=== PATIENT | male | born 1980 | race Caucasian/White ===

== ENCOUNTER 2023-05-03 02:15 | Observation (INO) ==
[2023-05-03] MEDS ORDERED: ONDANSETRON INJ 2 MG/ML 2 ML VIAL IV STA (03:56)
[2023-05-03] MEDS ORDERED: HYDROmorphone INJ 0.5 MG/0.5 ML SYR IV STA (03:56)
[2023-05-03 04:13] LABS: Basophils # (auto) 0.03 K/uL (0.00-0.20); Basophils % (auto) 0.4 %; Eosinophils # (auto) 0.02 K/uL (0.00-0.50); Eosinophils % (auto) 0.2 %; Hematocrit (blood only) 46.9 % (42.0-52.0); Hemoglobin 15.1 g/dl (14.0-18.0); Immature Granulocytes # (auto) 0.07 K/uL (0.01-0.20); Immature Granulocytes % (auto) 0.8 %; Lymphocytes # (auto) 0.77 K/uL (1.20-3.40); Lymphocytes % (auto) 9.3 %; Mean Corpuscular Hemoglobin 28.5 pg (25.0-34.0); Mean Corpuscular Hgb Conc 32.2 g/dL (32.0-36.0); Mean Corpuscular Volume 88.7 fL (80.0-100.0); Mean Platelet Volume 9.9 fL (9.4-12.4); Monocytes # (auto) 0.24 K/uL (0.11-0.59); Monocytes % (auto) 2.9 %; Neutrophils # (auto) 7.14 K/uL (1.40-6.50); Neutrophils % (auto) 86.4 %; Platelet Count 273 K/uL (130-400); RDW Coefficient of Variation 13.6 % (11.5-14.5); RDW Standard Deviation 44.2 fL (36.4-46.3); Red Blood Count 5.29 M/uL (4.70-6.10); White Blood Count 8.27 K/ul (4.8-10.8)
[2023-05-03 04:18] LABS: Alanine Aminotransferase 17 U/L (7-52); Albumin Globulin Ratio 1.5 (0.9-2); Albumin Level 4.8 gm/dl (3.4-5.0); Alkaline Phosphatase 81 U/L (34-104); Anion Gap 8 (3-11); Aspartate Aminotransferase 21 U/L (13-39); BUN Creatinine Ratio 20.2 (10-20); Bilirubin,Total 0.6 mg/dl (0.2-1.0); Blood Urea Nitrogen 23 mg/dl (6-23); Calcium 10.2 mg/dl (8.6-10.3); Carbon Dioxide 28 mmol/L (21-32); Chloride 102 mmol/L (98-107); Est GFR (African American) 90.8 ml/min; Est GFR (Non-African American) 78.3 ml/min; Globulin 3.3 gm/dl (2.5-4.0); Glucose 92 mg/dl (70-99(Fasting)); Potassium 3.9 mmol/L (3.5-5.1); Sodium 138 mmol/L (136-145); Total Protein 8.1 gm/dl (6.0-8.3)
--- NOTE | 2023-05-03 04:32 | XRay Report ---
ORBIT RADIOGRAPHS 3 VIEWS HISTORY: pre-MRI screening. COMPARISON: None. FINDINGS: There are no radiopaque foreign bodies identified within the orbits. IMPRESSION: No radiopaque foreign bodies identified within the orbits. ACT 112: Negative or not required by law. Electronically signed by: Renato Alonzo M.D. 05/03/2023 4:29 AM
[2023-05-03] MEDS ORDERED: GADOBUTROL 7.5ML VIAL IV ONE (05:28)
--- NOTE | 2023-05-03 06:06 | Emergency Department Note ---
Impression & Plan Stroke-like symptoms Admit to the [facility] ED Provider Note NAME: WILLIAM LUKE Jr AGE: 42 SEX: Male INFORMANT: Patient ED PROVIDER(S): Mary Sandhu DO CHIEF COMPLAINT: Left-sided weakness and slurred speech PLAN: Disposition: Admit to the [facility] MEDICAL DECISION MAKING: This is a 42-year-old male patient who had sudden onset of headache, left-sided weakness and slurred speech. He was originally seen at [facility] where he underwent a stroke workup and was found to have CT findings in the left side of his brain according to his . They made arrangements for the patient to be transferred to [facility] for MRI of the brain but this could not happen until sometime tomorrow afternoon because of bed availability. The was concerned about the delay and signed the patient out AMA and drove him here for further care. at [facility], the patient's white blood cell count was 11. Here in the emergency department, it had come down to 8. The initially noted that the patient felt hot in be. That was the first sign that there was a problem. The patient has remained afebrile. He has no signs of meningismus. On presentation here, the patient has significant right tongue deviation and slight left mouth droop. He has significant appreciable left lower extremity weakness at the hip, knee and ankle. He went for MRI of the brain which is pending. I have discussed the case with the [facility] and they will admit to the hospital for further neurological evaluation. Care/management discussed with: ED case management and the [facility] Triage Nursing notes: reviewed and agree with them. Vital Signs: reviewed and unremarkable Additional History obtained from: The patient's is at the bedside Prior/ Outside/ External records reviewed: I did review the records the patient brought with him from [facility]-most specifically his CT head without contrast Impression: A slightly irregular hypodense area measuring 19 x 17 mm was seen in the left temporal lobe with a mild mass effect on the ipsilateral temporal horn of the left lateral ventricle. It may be concerning for acute infarctions and or less likely neoplastic lesions. Contrast-enhanced MRI with DWI is advised for further workup. Rest of visualized brain parenchyma is unremarkable. Differential Diagnosis: Intracranial mass, acute stroke, meningitis, conversion disorder, seizure Diagnostics, independently interpreted by me: Cardiac Monitoring: Normal sinus rhythm at 80 Imaging studies: MRI of the brain with and without contrast: Pending HPI: 42 year old Male arrives for evaluation of stroke symptoms. Patient had returned home after some [place] festivities when he got into bed in his usual state of health. His noted that he felt hot to the touch. She went to get him some Tylenol and returned with NyQuil cold tablets. He complained of a headache, chest discomfort and left arm discomfort. She noted that he had slurred speech, left-sided facial droop, left arm weakness and left leg weakness. She took him to [facility] emergency department where they did a complete stroke workup and laboratory testing including 2 negative troponins and EKG which were apparently normal. However according to the , they did have a CT scan of the brain performed which was negative and had some findings in his left temporal lobe. There was a CT scan of the neck which showed no findings in the carotids. She did note that the patient had which she described as expressive aphasia that seem to wax and wane and the findings in his left arm and leg were also waxing and waning. They had made arrangements for the patient to be transferred to [place] for MRI of the brain but this could not happen till tomorrow afternoon because of bed availability. The patient and his were not willing to wait that long and signed out AMA and drove here for further care. Of note, the patient had COVID last week PAST MEDICAL HISTORY: Depression, GERD SOCIAL HISTORY: Lives with his , has 1 son HOME MEDICATIONS: See list ALLERGIES: See list VITALS: See Below PHYSICAL EXAMINATION: HEENT: Head - normocephalic and atraumatic. Pupils are equal, round, and reactive to light. Extraocular eye muscles are intact and sclera are anicteric. Ears - bilaterally patent canals with noninjected tympanic membranes and no evidence of hemotympanum. Nose - moist nasal mucosa without discharge. Mouth - moist buccal mucosa. Oropharynx is nonerythematous and there is no tonsillar exudate or edema noted. Neck: Supple; no JVD, nuchal rigidity, cervical lymphadenopathy, or auscultated bruits. Heart: Regular rate and rhythm. There is a normal S1 and S2 with no murmurs, clicks, or gallops appreciated. Lungs: Clear to auscultation bilaterally with no wheezes, rales, or rhonchi. Abdomen: Soft, completely nontender, nondistended, with good bowel sounds. There are no palpable pulsatile masses or hepatosplenomegaly. There is no guarding, rigidity, or rebound noted. Extremities: No evidence of cyanosis, clubbing, or edema. There are easily palpable peripheral pulses. Neuro:The patient is awake and alert, oriented to day, time, and place. Cranial nerves II through XII are grossly intact except for the patient has obvious tongue deviation to the right and ever so slight droop to the left side of his mouth. Muscle strength is normal in both upper extremities. Patient has significant decrease strength in the left lower leg at the hip, knee and ankle. Muscle strength is 1/5. Emergency department course: The patient was evaluated in room C-5. A complete history and physical was performed. I did review records from [facility]. An IV lock was initiated and labs were drawn as above. The patient went for MRI of the brain. I discussed the case with the [facility] Hospitalist Past Med/Surg History Social History Smoking Status: Never smoker Tobacco Type: Smokeless Tobacco (Dip or Chew) Do You Dip or Chew Tobacco: Yes; Tobacco Cessation Education Requested by Patient: No Hx Alcohol Use: Yes Alcohol type: beer Hx Substance Use: No Preferred Language: Bahraini Communication Ability: Effective Human Services Program Specialist Required: No Beliefs That Will Affect Care: None Current Living Situation: Spouse and Family Current Living Situation Comment: one daughter at times in college Other Information That Helps Us Care for You: No Feels Safe at Home: Yes Safety Concerns: Feels Safe At This Time Assistive Devices: Contacts and Glasses Allergies Allergies Allergy/AdvReac Type Severity Reaction Status Date / Time bacitracin Allergy Intermediate Rash Verified 05/03/23 02:54 [From Neosporin ([id number])] neomycin Allergy Intermediate Rash Verified 05/03/23 02:54 [From Neosporin ([id number])] polymyxin B Allergy Intermediate Rash Verified 05/03/23 02:54 [From Neosporin ([id number])] Home Meds Home Medications Medication Instructions Recorded Confirmed citalopram 20 mg tablet 20 mg PO DAILY 05/03/23 05/03/23 [id number] 6.25 2 cap PO DIRECTED PRN Cold 05/03/23 05/03/23 mg-15 mg-325 mg capsule (Vicks Symptoms NyQuil Cold/Flu Liquicap) pantoprazole 40 mg tablet,delayed 40 mg PO DAILY 05/03/23 05/03/23 release Results & Data (ED) Vital Signs Vital Signs - 24 hr 05/03/23 02:18 05/03/23 03:15 05/03/23 04:17 Temperature 36.6 C Temperature Source Temporal Artery Scan Pulse Rate 74 72 Pulse Rate [Apical] 86 Respiratory Rate 16 24 Blood Pressure 140/87 Blood Pressure [Right Arm] 144/88 H Blood Pressure Mean 104 Blood Pressure Mean [Right Arm] 106 Pulse Oximetry 100 94 Oxygen Delivery Method Room Air Room Air Sepsis Recent Fever Within 48 Hours No Sepsis New/Unexplained Change in Mental Status No Sepsis Action Taken by Nursing No Action Required 05/03/23 05:50 05/03/23 06:00 05/03/23 06:00 Temperature 37.2 C Temperature Source Oral Pulse Rate 80 79 Pulse Rate [Apical] Respiratory Rate 22 25 H Blood Pressure 133/74 121/69 Blood Pressure [Right Arm] Blood Pressure Mean 93 86 Blood Pressure Mean [Right Arm] Pulse Oximetry 96 96 Oxygen Delivery Method Room Air Room Air Sepsis Recent Fever Within 48 Hours Sepsis New/Unexplained Change in Mental Status Sepsis Action Taken by Nursing 05/03/23 06:30 Temperature Temperature Source Pulse Rate 80 Pulse Rate [Apical] Respiratory Rate 26 H Blood Pressure 135/77 Blood Pressure [Right Arm] Blood Pressure Mean 96 Blood Pressure Mean [Right Arm] Pulse Oximetry 95 Oxygen Delivery Method Room Air Sepsis Recent Fever Within 48 Hours Sepsis New/Unexplained Change in Mental Status Sepsis Action Taken by Nursing Laboratory Data 05/03/23 03:10 05/03/23 03:10 Lab Results 05/03/23 Range/Units 03:10 WBC 8.27 (4.8-10.8) K/ul RBC 5.29 (4.70-6.10) M/uL Hgb 15.1 (14.0-18.0) g/dl Hct 46.9 (42.0-52.0) % MCV 88.7 (80.0-100.0) fL MCH 28.5 (25.0-34.0) pg MCHC 32.2 (32.0-36.0) g/dL RDW Std Deviation 44.2 (36.4-46.3) fL RDW Coeff of Natasha 13.6 (11.5-14.5) % Plt Count 273 (130-400) K/uL MPV 9.9 (9.4-12.4) fL Immature Gran % (Auto) 0.8 % Neut % (Auto) 86.4 % Lymph % (Auto) 9.3 % [place] % (Auto) 2.9 % Eos % (Auto) 0.2 % Baso % (Auto) 0.4 % Neut # (Auto) 7.14 H (1.40-6.50) K/uL Lymph # (Auto) 0.77 L (1.20-3.40) K/uL [place] # (Auto) 0.24 (0.11-0.59) K/uL Eos # (Auto) 0.02 (0.00-0.50) K/uL Baso # (Auto) 0.03 (0.00-0.20) K/uL Immature Gran # (Auto) 0.07 (0.01-0.20) K/uL Sodium 138 (136-145) mmol/L Potassium 3.9 (3.5-5.1) mmol/L Chloride 102 (98-107) mmol/L Carbon Dioxide 28 (21-32) mmol/L Anion Gap 8 (3-11) BUN 23 (6-23) mg/dl Creatinine 1.14 (0.6-1.4) mg/dl Est Cr Clr Drug Dosing Not Reportable Est GFR ( Amer) 90.8 ml/min Est GFR (Non-Af Amer) 78.3 ml/min BUN/Creatinine Ratio 20.2 H (10-20) Glucose 92 (70-99(Fasting)) mg/dl Calcium 10.2 (8.6-10.3) mg/dl Total Bilirubin 0.6 (0.2-1.0) mg/dl AST 21 (13-39) U/L ALT 17 (7-52) U/L Alkaline Phosphatase 81 (34-104) U/L Total Protein 8.1 (6.0-8.3) gm/dl Albumin 4.8 (3.4-5.0) gm/dl Globulin 3.3 (2.5-4.0) gm/dl Albumin/Globulin Ratio 1.5 (0.9-2) Administered Medications Hydromorphone HCl (Hydromorphone Inj 0.5 Mg/0.5 Ml Syr) 0.5 mg IV Q3H PRN PRN Reason: Severe Pain (Scale 7, 8, 9,10) Stop: 05/17/23 08:41 Last Admin: 05/03/23 12:34 Dose: 0.5 mg Documented By: KENNETH Sodium Chloride (Nss) 1,000 mls @ 125 mls/hr IV .Q8H GUILLERMO Stop: 05/04/23 01:42 Last Admin: 05/03/23 09:58 Dose: 125 mls/hr Documented By: KENNETH Pantoprazole Sodium (Pantoprazole 40 Mg Tab) 40 mg PO DAILY GUILLERMO Stop: 06/02/23 09:42 Last Admin: 05/03/23 14:15 Dose: 40 mg Documented By: KENNETH Discontinued Medications Gadobutrol (Gadobutrol 7.5ml Vial) 7.4 ml IV ONCE ONE Stop: 05/03/23 05:29 Last Admin: 05/03/23 05:28 Dose: 7.4 ml Documented By: ARUNA Hydromorphone HCl (Hydromorphone Inj 0.5 Mg/0.5 Ml Syr) 0.5 mg IV NOW STA Stop: 05/03/23 03:57 Last Admin: 05/03/23 04:13 Dose: 0.5 mg Documented By: AMITA Ioversol (Optiray 320 125ml) 117 ml IV ONCE ONE Stop: 05/03/23 12:51 Last Admin: 05/03/23 12:50 Dose: 117 ml Documented By: ANASTACIO Ondansetron HCl (Ondansetron Inj 2 Mg/Ml 2 Ml Vial) 4 mg IV NOW STA Stop: 05/03/23 03:57 Last Admin: 05/03/23 04:13 Dose: 4 mg Documented By: AMITA Imaging Data Radiologist's Impression: Brain MRI 05/03/23 03:39 Exam(s): MRI HEAD W/WO Contrast IV Amt: 7.4mL Gadavist given IV EXAM: MR Head Without and With Intravenous Contrast CLINICAL HISTORY: Reason for exam: eval for infarction vs mass. TECHNIQUE: Magnetic resonance images of the head/brain without and with intravenous contrast in multiple planes. CONTRAST: Patient received 7.4mL Gadavist given IV of IV contrast COMPARISON: No relevant prior studies available. FINDINGS: Brain: Minimal nonspecific white matter changes. No mass. No hemorrhage. No acute infarct. The flow voids at the base of the brain are intact. No evidence of abnormal enhancement. The dural venous sinuses are patent. Ventricles: Unremarkable. No ventriculomegaly. Bones/joints: Unremarkable. No acute fracture. Sinuses: Chronic left maxillary and ethmoid sinusitis. No acute sinusitis. Mastoid air cells: Unremarkable as visualized. No mastoid effusion. Orbits: Unremarkable as visualized. IMPRESSION: No evidence of acute intracranial pathology. Electronically signed by: Karo Colindres MD 05/03/23 06:34 AM Orbit X-Ray 05/03/23 03:58 ORBIT RADIOGRAPHS 3 VIEWS HISTORY: pre-MRI screening. COMPARISON: None. FINDINGS: There are no radiopaque foreign bodies identified within the orbits. IMPRESSION: No radiopaque foreign bodies identified within the orbits. ACT 112: Negative or not required by law. Electronically signed by: Renato Alonzo M.D. 05/03/2023 4:29 AM Discharge Plan Visit Data Chief Complaint: Neuro Symptoms/Deficit Stated Complaint: FEVER,CHEST PAIN,WEAKNESS,SPEECH/MOVEMENT ISSUES ED Provider: Mary Sandhu Discharge Problem: Stroke-like symptoms Patient Disposition: Admitted As Inpatient Discharge Instructions Interventions: ED Discharge Assessment Last Done: 05/03/23 09:08
--- NOTE | 2023-05-03 06:35 | Magnetic Resonance Report ---
Exam(s): MRI HEAD W/WO Contrast IV Amt: 7.4mL Gadavist given IV EXAM: MR Head Without and With Intravenous Contrast CLINICAL HISTORY: Reason for exam: eval for infarction vs mass. TECHNIQUE: Magnetic resonance images of the head/brain without and with intravenous contrast in multiple planes. CONTRAST: Patient received 7.4mL Gadavist given IV of IV contrast COMPARISON: No relevant prior studies available. FINDINGS: Brain: Minimal nonspecific white matter changes. No mass. No hemorrhage. No acute infarct. The flow voids at the base of the brain are intact. No evidence of abnormal enhancement. The dural venous sinuses are patent. Ventricles: Unremarkable. No ventriculomegaly. Bones/joints: Unremarkable. No acute fracture. Sinuses: Chronic left maxillary and ethmoid sinusitis. No acute sinusitis. Mastoid air cells: Unremarkable as visualized. No mastoid effusion. Orbits: Unremarkable as visualized. IMPRESSION: No evidence of acute intracranial pathology. Electronically signed by: Karo Colindres MD 05/03/23 06:34 AM
--- NOTE | 2023-05-03 08:42 | History & Physical Report ---
Date of Service May 03, 2023 Assessment & Plan (1) Stroke-like symptoms: Plan: 42-year-old male with past medical history significant for Geovanni's thyroiditis, GERD, panic disorder, anxiety, ADHD, comes with strokelike symptoms. Patient recently seemed to had COVID as per about a week ago and was tested negative on last Wednesday. During COVID he had severe headaches. Yesterday they came home after visiting family. Around 9:30 PM patient went to sleep. When checked on him he was very hot. When she tried to talk to him he was slurring in speech and also had some left-sided facial droop and left- sided weakness. She took the patient to [facility]. CT head scan done in [facility] showed 19mm x 17mm left temporal lobe lesion with mild mass effect on ipsilateral temporal horn of the left temporal ventricle. Acute infarct vs neoplasm.CTA head and neck were ok. [facility] tried to transfer to [place] for MRI but no bed until later today so drove him here.Currently speech is back to normal. Alert and oriented. Tongue is deviated to right side. Probable mild left facial droop. Having Weakness in the left lower extremity currently. Currently denies any headache. No blurred visions. No runny nose or sore throat. No chest pain or shortness of breath. No nausea. No abdominal pain. Hemodynamics are stable. Strokelike symptoms Weakness in the left extremities Transient speech issues Tongue due to right side CT scan at [facility] as mentioned above CTA head and neck at [facility] were okay MRI head done here which came back unremarkable Will follow neurochecks we will follow cardiogram Speech evaluation PT OT evaluation Consult neurology and await input History of depression and anxiety continue citalopram GERD Protonix DVT prophylaxis SCDs for now Disposition Telemetry floor Full code History of Present Illness Chief Complaint: Strokelike symptoms Primary Care Provider: Awais Major MD 42-year-old male with past medical history significant for Geovanni's thyroiditis, GERD, panic disorder, anxiety, ADHD, comes with strokelike symptoms. Patient recently seemed to had COVID as per about a week ago and was tested negative on last Wednesday. During COVID he had severe headaches. Yesterday they came home after visiting family. Around 9:30 PM patient went to sleep. When checked on him he was very hot. When she tried to talk to him he was slurring in speech and also had some left-sided facial droop and left- sided weakness. She took the patient to [facility]. CT head scan done in [facility] showed 19mm x 17mm left temporal lobe lesion with mild mass effect on ipsilateral temporal horn of the left temporal ventricle. Acute infarct vs neoplasm.CTA head and neck were ok. [facility] tried to transfer to [place] for MRI but no bed until later today so drove him here.Currently speech is back to normal. Alert and oriented. Tongue is deviated to right side. Probable mild left facial droop. Having Weakness in t he left lower extremity currently. Currently denies any headache. No blurred visions. No runny nose or sore throat. No chest pain or shortness of breath. No nausea. No abdominal pain. Hemodynamics are stable. Past medical history as mentioned above . Past surgical history. Hypospadias repair Social history. . Chews tobacco. Alcohol yes. no drug use. Family history. No family history on file Allergies Allergy/AdvReac Type Severity Reaction Status Date / Time bacitracin Allergy Intermediate Rash Verified 05/03/23 02:54 [From Neosporin ([id number])] neomycin Allergy Intermediate Rash Verified 05/03/23 02:54 [From Neosporin ([id number])] polymyxin B Allergy Intermediate Rash Verified 05/03/23 02:54 [From Neosporin ([id number])] Home Medications Medication Instructions Recorded Confirmed Type citalopram 20 mg tablet 20 mg PO DAILY 05/03/23 05/03/23 History [id number] 6.25 2 cap PO DIRECTED PRN Cold 05/03/23 05/03/23 History mg-15 mg-325 mg capsule (Vicks Symptoms NyQuil Cold/Flu Liquicap) pantoprazole 40 mg tablet,delayed 40 mg PO DAILY 05/03/23 05/03/23 History release Past Med/Surg History Social History Smoking Status: Never smoker Preferred Language: Bruneian Feels Safe at Home: Yes Review of Systems Review of Systems: All systems reviewed & are unremarkable except as noted in HPI & below Physical Exam Physical Exam: General- Not in acute distress Head- atraumatic Eyes- PERRL, EOMI, anicteric ENT- oropharynx clear Neck- supple, no JVD. Lungs- clear to auscultation no wheezing or crackles. Heart- regular rhythm; no murmur, no gallop. Abdomen- normal bowel sounds, soft, nontender, no distension Extremities- no pretibial edema, no erythema seen. Neuro- alert, oriented x 3; PERRL, EOMI; mild left facial droop,tounge deviated to right side. no dysarthria; power 5/5 bilaterally right extremities. 4/5 left upper extremity, 1/5 left lower extremity ; Co ordination of movements ok. No pronator drift, sensations intact. Skin- warm & dry Results & Data Results & Data Vital Signs (Past 12 Hours) Vital Signs Temp Pulse Pulse Resp BP BP Pulse Ox 05/03/23 08:00 86 21 139/83 97 05/03/23 07:35 88 21 165/89 H 95 05/03/23 07:23 74 05/03/23 07:00 81 24 120/74 96 05/03/23 06:30 80 26 H 135/77 95 05/03/23 06:00 79 25 H 121/69 96 05/03/23 06:00 37.2 C 05/03/23 05:50 80 22 133/74 96 05/03/23 04:17 86 24 144/88 H 94 05/03/23 03:15 72 05/03/23 02:18 36.6 C 74 16 140/87 100 O2 Del Method 05/03/23 08:00 Room Air 05/03/23 07:35 Room Air 05/03/23 07:23 05/03/23 07:00 Room Air 05/03/23 06:30 Room Air 05/03/23 06:00 Room Air 05/03/23 06:00 05/03/23 05:50 Room Air 05/03/23 04:17 Room Air 05/03/23 03:15 05/03/23 02:18 Room Air Diagnostic Findings Laboratory Results WBC 8.27 K/ul (4.8-10.8) 05/03/23 03:10 RBC 5.29 M/uL (4.70-6.10) 05/03/23 03:10 Hgb 15.1 g/dl (14.0-18.0) 05/03/23 03:10 Hct 46.9 % (42.0-52.0) 05/03/23 03:10 MCV 88.7 fL (80.0-100.0) 05/03/23 03:10 MCH 28.5 pg (25.0-34.0) 05/03/23 03:10 MCHC 32.2 g/dL (32.0-36.0) 05/03/23 03:10 RDW Std Deviation 44.2 fL (36.4-46.3) 05/03/23 03:10 RDW Coeff of Natasha 13.6 % (11.5-14.5) 05/03/23 03:10 Plt Count 273 K/uL (130-400) 05/03/23 03:10 MPV 9.9 fL (9.4-12.4) 05/03/23 03:10 Immature Gran % (Auto) 0.8 % 05/03/23 03:10 Neut % (Auto) 86.4 % 05/03/23 03:10 Lymph % (Auto) 9.3 % 05/03/23 03:10 [place] % (Auto) 2.9 % 05/03/23 03:10 Eos % (Auto) 0.2 % 05/03/23 03:10 Baso % (Auto) 0.4 % 05/03/23 03:10 Neut # (Auto) 7.14 K/uL (1.40-6.50) H 05/03/23 03:10 Lymph # (Auto) 0.77 K/uL (1.20-3.40) L 05/03/23 03:10 Delta # (Auto) 0.24 K/uL (0.11-0.59) 05/03/23 03:10 Eos # (Auto) 0.02 K/uL (0.00-0.50) 05/03/23 03:10 Baso # (Auto) 0.03 K/uL (0.00-0.20) 05/03/23 03:10 Immature Gran # (Auto) 0.07 K/uL (0.01-0.20) 05/03/23 03:10 Sodium 138 mmol/L (136-145) 05/03/23 03:10 Potassium 3.9 mmol/L (3.5-5.1) 05/03/23 03:10 Chloride 102 mmol/L (98-107) 05/03/23 03:10 Carbon Dioxide 28 mmol/L (21-32) 05/03/23 03:10 Anion Gap 8 (3-11) 05/03/23 03:10 BUN 23 mg/dl (6-23) 05/03/23 03:10 Creatinine 1.14 mg/dl (0.6-1.4) 05/03/23 03:10 Est Cr Clr Drug Dosing Not Reportable 05/03/23 03:10 Est GFR ( Amer) 90.8 ml/min 05/03/23 03:10 Est GFR (Non-Af Amer) 78.3 ml/min 05/03/23 03:10 BUN/Creatinine Ratio 20.2 (10-20) H 05/03/23 03:10 Glucose 92 mg/dl (70-99(Fasting)) 05/03/23 03:10 Calcium 10.2 mg/dl (8.6-10.3) 05/03/23 03:10 Total Bilirubin 0.6 mg/dl (0.2-1.0) 05/03/23 03:10 AST 21 U/L (13-39) 05/03/23 03:10 ALT 17 U/L (7-52) 05/03/23 03:10 Alkaline Phosphatase 81 U/L (34-104) 05/03/23 03:10 Total Protein 8.1 gm/dl (6.0-8.3) 05/03/23 03:10 Albumin 4.8 gm/dl (3.4-5.0) 05/03/23 03:10 Globulin 3.3 gm/dl (2.5-4.0) 05/03/23 03:10 Albumin/Globulin Ratio 1.5 (0.9-2) 05/03/23 03:10 SARS-CoV-2 (PCR) NEGATIVE (Negative) 05/03/23 07:20 Impressions Brain MRI 05/03/23 03:39 Exam(s): MRI HEAD W/WO Contrast IV Amt: 7.4mL Gadavist given IV EXAM: MR Head Without and With Intravenous Contrast CLINICAL HISTORY: Reason for exam: eval for infarction vs mass. TECHNIQUE: Magnetic resonance images of the head/brain without and with intravenous contrast in multiple planes. CONTRAST: Patient received 7.4mL Gadavist given IV of IV contrast COMPARISON: No relevant prior studies available. FINDINGS: Brain: Minimal nonspecific white matter changes. No mass. No hemorrhage. No acute infarct. The flow voids at the base of the brain are intact. No evidence of abnormal enhancement. The dural venous sinuses are patent. Ventricles: Unremarkable. No ventriculomegaly. Bones/joints: Unremarkable. No acute fracture. Sinuses: Chronic left maxillary and ethmoid sinusitis. No acute sinusitis. Mastoid air cells: Unremarkable as visualized. No mastoid effusion. Orbits: Unremarkable as visualized. IMPRESSION: No evidence of acute intracranial pathology. Electronically signed by: Karo Colindres MD 05/03/23 06:34 AM Orbit X-Ray 05/03/23 03:58 ORBIT RADIOGRAPHS 3 VIEWS HISTORY: pre-MRI screening. COMPARISON: None. FINDINGS: There are no radiopaque foreign bodies identified within the orbits. IMPRESSION: No radiopaque foreign bodies identified within the orbits. ACT 112: Negative or not required by law. Electronically signed by: Renato Alonzo M.D. 05/03/2023 4:29 AM ECG Additional Comments: ECG. Normal sinus rhythm rate of 64. Possible left atrial enlargement. Code Status & VTE Plan VTE Prophylaxis Plan VTE Prophylaxis will be ordered: Yes
[2023-05-03] MEDS ORDERED: PHARMACIST DISCHARGE MED REC CONSULT PRN (09:43)
[2023-05-03] MEDS ORDERED: ACETAMINOPHEN 325 MG TAB PO PRN (09:43)
[2023-05-03] MEDS ORDERED: NITROGLYCERIN SL 0.4 MG/TAB TAB SL PRN (09:43)
[2023-05-03] MEDS ORDERED: ACETAMINOPHEN 1,000 MG/100 ML VIAL IV PRN (09:43)
[2023-05-03] MEDS: SODIUM CHLORIDE 0.9% 1,000 ML IV SCH ×2 (09:58→23:15)
[2023-05-03] MEDS: HYDROmorphone INJ 0.5 MG/0.5 ML SYR IV PRN ×2 (12:34→22:34)
[2023-05-03] MEDS ORDERED: OPTIRAY 320 125ml IV ONE (12:50)
--- NOTE | 2023-05-03 13:04 | Neurology Consultation ---
Date of Consultation May 03, 2023 Assessment & Plan (1) Stroke-like symptoms: Reported stroke like symptoms=left hemiparesis-improving & dysarthria-resolved, tongue deviation appears equivocal No evidence of acute intracranial pathology per MRI review Recommend continue stroke workup including echocardiogram and CTA head & neck Recommend obtain MRI with and without contrast cervical and thoracic spine to address left hemiparesis if symptoms persist MRI lumbar spine without contrast if LLE weakness persists Recommend pursue hypercoagulable workup given patients age and reported acute onset symptoms Continue to monitor neurological assessments Stat CT brain without contrast for any acute neurological decline Continue metabolic workup Monitor renal and hepatic function PT/OT/SLT to evaluate and treat VTE prophylaxis Telehealth Consultation Telehealth Information Telehealth Information: I performed this visit using a real-time telehealth connection between my location and the patients location ([facility]). After connecting through interactive tele-video, patient was identified by name and date of and/or wristband check.Patient (or authorized healthcare wholesale representative) was informed that this was a telemedicine visit and it was being conducted confidentially over secure lines. My office door was closed and no one else was present in the room with me.Patient (or authorized healthcare wholesale representative) provided consent to proceed with the visit, expressed an understanding of privacy and security of the telemedicine visit, and gave permission to have a hospital wholesale representative in the room in order to assist with the visit and to conduct portions of the visit, as needed. I informed the patient (or authorized healthcare wholesale representative) that I reviewed their record and presented the opportunity for them to ask any questions regarding the visit today. The patient agreed to participate. History of Present Illness Reason for Consultation: Concdern for "stroke like symptoms" Reported new onset Left hemiparesis, tongue deviation Requesting Physician: Dr. Rust Attending Physician: Shira Hernadez MD History of Present Illness 42yo male unfortunately was found to be possibly febrile and noted slurring of speech and left facial asymmetry and left sided weakness. He went to [facility] where it is reported he had a CT scan revealing possible left temporal lobe lesion. He was informed he would not undergo MRI immediately so he was reportedly signed out AMA and was driven to [facility] where he is hospitalized now. He has had an MRI brain performed both with and without contrast fortunately unrevealing for evidence of ongoing intracranial pathology per my personal review. I have performed televideo consultation. Speech is without dysarthria or slowed fluency. Able to answer all orientation questions appropriately. Able to name objects and repeat phrases. No evidence of aphasia. Denies vision changes or changes in hearing. No apparent distress or discomfort. at bedside all questions answered. He reports having viral syndrome over last week or so coupled with headaches at times. Currently denies chest pain/palpitations or shortness of breath. When asked to protrude tongue able to appreciate good tone but right sided preference. When performing motor strength and coordination testing notably demonstrates slight LUE drift and very minimal LLE movement against gravity possibly consistent with functional weakness. No evidence of limited cervical spine range of motion or evidence suggestive of nuchal rigidity. I have explained my recommendation for CTA head and neck and echocardiogram as part of complete stroke workup to include hypercoagulation w orkup studies to be addresses as well given patients age and limited stroke risk factors. All questions answered. at bedside and Celena RN present during examination. Discussed examination findings and recommendations directly with primary hospitalist team Dr. Hernadez. Allergies Allergy/AdvReac Type Severity Reaction Status Date / Time bacitracin Allergy Intermediate Rash Verified 05/03/23 02:54 [From Neosporin ([id number])] neomycin Allergy Intermediate Rash Verified 05/03/23 02:54 [From Neosporin ([id number])] polymyxin B Allergy Intermediate Rash Verified 05/03/23 02:54 [From Neosporin ([id number])] Home Medications Medication Instructions Recorded Confirmed Type citalopram 20 mg tablet 20 mg PO DAILY 05/03/23 05/03/23 History [id number]-RP-[id number] 6.25 2 cap PO DIRECTED PRN Cold 05/03/23 05/03/23 History mg-15 mg-325 mg capsule (Vicks Symptoms NyQuil Cold/Flu Liquicap) pantoprazole 40 mg tablet,delayed 40 mg PO DAILY 05/03/23 05/03/23 History release Patient History Social History Smoking Status: Never smoker Tobacco Type: Smokeless Tobacco (Dip or Chew) Do You Dip or Chew Tobacco: Yes; Tobacco Cessation Education Requested by Patient: No Hx Alcohol Use: Yes Alcohol type: beer Hx Substance Use: No Preferred Language: Macanese Communication Ability: Effective 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 Beliefs That Will Affect Care: None Current Living Situation: Spouse and Family Current Living Situation Comment: one daughter at times in college Other Information That Helps Us Care for You: No Feels Safe at Home: Yes Safety Concerns: Feels Safe At This Time Assistive Devices: Contacts and Glasses Review of Systems No reported cephalgia or cervicalgia at this time Denies chest pain/palpitations or shortness of breath No reported changes in vision hearing dizziness syncope seizure like activity or paresthesia Denies recent fevers chills nausea vomiting changes in bowels or bladder Denies recent medication changes, recent illness or sick contacts, no reported recent travel Physical Exam Neurological Examination: Mental Status: Awake and alert. Oriented to person, place, and time. Fluency naming repetition and comprehension appear grossly intact. Affect remains appropriate. CN testing: I: Denies changes in ability to smell II:Reports no changes in visual acuity III/IV/: No evidence of gaze preference, hippus, nystagmus or roving eye movements V: Facial sensation reportedly grossly intact to light touch bilaterally VII: Facial movements appear without evidence of asymmetry Nasolabial folds appear symmetric bilaterally VIII: Hearing appears grossly intact to loud voice bilaterally IX/X: Palate appears to elevate symmetrically XI: Shoulder shrug appears symmetric/ grossly intact bilaterally XII: Tongue is able to cross midline- prefers right side upon protrusion Motor exam: LUE drift after >10 seconds LLE demonstrates possible functional weakness No evidence of positive meningeal signs- negative Kernig/Brudzinski Sensory: Sensation is reportedly grossly intact throughout Coordination: Difficult to reliably assess Reflexes: Deferred Gait: Deferred Results & Data Vital Signs (Past 12 Hours) Vital Signs Temp Pulse Pulse Resp BP BP Pulse Ox 05/03/23 09:37 37.6 C H 76 18 147/85 H 96 05/03/23 09:35 37.6 C H 76 18 147/85 H 96 05/03/23 09:00 75 24 138/79 97 05/03/23 08:30 78 24 138/79 95 05/03/23 08:00 86 21 139/83 97 05/03/23 07:35 88 21 165/89 H 95 05/03/23 07:23 74 05/03/23 07:00 81 24 120/74 96 05/03/23 06:30 80 26 H 135/77 95 05/03/23 06:00 79 25 H 121/69 96 05/03/23 06:00 37.2 C 05/03/23 05:50 80 22 133/74 96 05/03/23 04:17 86 24 144/88 H 94 05/03/23 03:15 72 05/03/23 02:18 36.6 C 74 16 140/87 100 O2 Del Method 05/03/23 09:37 Room Air 05/03/23 09:35 Room Air 05/03/23 09:00 Room Air 05/03/23 08:30 Room Air 05/03/23 08:00 Room Air 05/03/23 07:35 Room Air 05/03/23 07:23 05/03/23 07:00 Room Air 05/03/23 06:30 Room Air 05/03/23 06:00 Room Air 05/03/23 06:00 05/03/23 05:50 Room Air 05/03/23 04:17 Room Air 05/03/23 03:15 05/03/23 02:18 Room Air Laboratory Results Abnormal lab results 05/03/23 Range/Units 03:10 Neut # (Auto) 7.14 H (1.40-6.50) K/uL Lymph # (Auto) 0.77 L (1.20-3.40) K/uL BUN/Creatinine Ratio 20.2 H (10-20) Diagnostic Findings Brain MRI 05/03/23 03:39 Exam(s): MRI HEAD W/WO Contrast IV Amt: 7.4mL Gadavist given IV EXAM: MR Head Without and With Intravenous Contrast CLINICAL HISTORY: Reason for exam: eval for infarction vs mass. TECHNIQUE: Magnetic resonance images of the head/brain without and with intravenous contrast in multiple planes. CONTRAST: Patient received 7.4mL Gadavist given IV of IV contrast COMPARISON: No relevant prior studies available. FINDINGS: Brain: Minimal nonspecific white matter changes. No mass. No hemorrhage. No acute infarct. The flow voids at the base of the brain are intact. No evidence of abnormal enhancement. The dural venous sinuses are patent. Ventricles: Unremarkable. No ventriculomegaly. Bones/joints: Unremarkable. No acute fracture. Sinuses: Chronic left maxillary and ethmoid sinusitis. No acute sinusitis. Mastoid air cells: Unremarkable as visualized. No mastoid effusion. Orbits: Unremarkable as visualized. IMPRESSION: No evidence of acute intracranial pathology. Electronically signed by: Karo Colindres MD 05/03/23 06:34 AM Orbit X-Ray 05/03/23 03:58 ORBIT RADIOGRAPHS 3 VIEWS HISTORY: pre-MRI screening. COMPARISON: None. FINDINGS: There are no radiopaque foreign bodies identified within the orbits. IMPRESSION: No radiopaque foreign bodies identified within the orbits. ACT 112: Negative or not required by law. Electronically signed by: Renato Alonzo M.D. 05/03/2023 4:29 AM Head CTA 05/03/23 11:27 CT angio neck with con, CT angio head wo/w CLINICAL HISTORY: Stroke like symptoms TECHNIQUE: Contiguous axial CT images of the head were acquired from the base of the skull to the vertex without intravenous contrast administration. CT angiography of the head and neck was performed following intravenous administration of iodinated contrast. Coronal and sagittal MIPS were obtained from the axial data set and were submitted for review. Automated dose lowering techniques and/or adjustment according to patient size were utilized for this examination. All measurements were calculated based on NASCET criteria. CT DOSE: 1132.42 mGy.cm Comparison: None available at the time of this dictation. FINDINGS: CT head: There is no acute intracranial hemorrhage or evidence of acute territorial infarction. No shift of the midline structures, mass effect, or extra-axial abnormalities are shown. Given septum pellucidum is incidentally seen. Small thyroid nodules are seen which do not require follow-up by ACR criteria. CTA Neck: A 3 vessel aortic arch is shown. There is no significant atherosclerotic plaque in the aortic arch or the origins of the innominate, left common carotid, and left subclavian arteries. The common carotid, external carotid, cervical segments of the internal carotid arteries, and the cervical segments of the vertebral arteries are patent without hemodynamically significant stenosis. The left vertebral artery is dominant. CTA Head: The anterior and posterior cerebral circulations are patent. No hemodynamically significant stenosis, aneurysm, dissection, or arteriovenous malformation is shown. IMPRESSION: 1. No acute intracranial hemorrhage, evidence of acute territorial infarction, or other acute intracranial disease process. 2. No occlusion, hemodynamically significant stenosis, or dissection in the major cervical arteries. 3. No occlusion, hemodynamically significant stenosis, aneurysm, dissection, or arteriovenous malformation in the major intracranial arteries. Assessment of stenosis of the internal carotid arteries is based on NASCET criteria. ACT 112: Negative or not required by law. Electronically signed by: David Coelho M.D. 05/03/2023 1:18 PM Neck CTA 05/03/23 11:27 CT angio neck with con, CT angio head wo/w CLINICAL HISTORY: Stroke like symptoms TECHNIQUE: Contiguous axial CT images of the head were acquired from the base of the skull to the vertex without intravenous contrast administration. CT angiography of the head and neck was performed following intravenous administration of iodinated contrast. Coronal and sagittal MIPS were obtained from the axial data set and were submitted for review. Automated dose lowering techniques and/or adjustment according to patient size were utilized for this examination. All measurements were calculated based on NASCET criteria. CT DOSE: 1132.42 mGy.cm Comparison: None available at the time of this dictation. FINDINGS: CT head: There is no acute intracranial hemorrhage or evidence of acute territorial infarction. No shift of the midline structures, mass effect, or extra-axial abnormalities are shown. Given septum pellucidum is incidentally seen. Small thyroid nodules are seen which do not require follow-up by ACR criteria. CTA Neck: A 3 vessel aortic arch is shown. There is no significant atherosclerotic plaque in the aortic arch or the origins of the innominate, left common carotid, and left subclavian arteries. The common carotid, external carotid, cervical segments of the internal carotid arteries, and the cervical segments of the vertebral arteries are patent without hemodynamically significant stenosis. The left vertebral artery is dominant. CTA Head: The anterior and posterior cerebral circulations are patent. No hemodynamically significant stenosis, aneurysm, dissection, or arteriovenous malformation is shown. IMPRESSION: 1. No acute intracranial hemorrhage, evidence of acute territorial infarction, or other acute intracranial disease process. 2. No occlusion, hemodynamically significant stenosis, or dissection in the major cervical arteries. 3. No occlusion, hemodynamically significant stenosis, aneurysm, dissection, or arteriovenous malformation in the major intracranial arteries. Assessment of stenosis of the internal carotid arteries is based on NASCET criteria. ACT 112: Negative or not required by law. Electronically signed by: David Coelho M.D. 05/03/2023 1:18 PM Medications Administered Home Medications Medication Instructions Recorded Confirmed Last Taken citalopram 20 mg tablet 20 mg PO DAILY 05/03/23 05/03/23 05/02/23 [id number] 6.25 2 cap PO DIRECTED PRN Cold 05/03/23 05/03/23 05/02/23 21:30 mg-15 mg-325 mg capsule (Vicks Symptoms NyQuil Cold/Flu Liquicap) pantoprazole 40 mg tablet,delayed 40 mg PO DAILY 05/03/23 05/03/23 05/02/23 release Active Medications Generic Name Dose Route Start Last Admin Trade Name Freq PRN Reason Stop Dose Admin Hydromorphone HCl 0.5 mg 05/03/23 08:42 05/03/23 12:34 Hydromorphone Inj 0.5 Mg/0.5 Ml Syr IV 05/17/23 08:41 0.5 mg Q3H PRN Administration Severe Pain (Scale 7, 8, 9,10) Sodium Chloride 1,000 mls @ 125 mls/hr 05/03/23 09:43 05/03/23 09:58 Nss IV 05/04/23 01:42 125 mls/hr .Q8H GUILLERMO Administration
--- NOTE | 2023-05-03 13:19 | CT Scan Report ---
CT angio neck with con, CT angio head wo/w CLINICAL HISTORY: Stroke like symptoms TECHNIQUE: Contiguous axial CT images of the head were acquired from the base of the skull to the mir marisela without intravenous contrast administration. CT angiography of the head and neck was performed f ollowing intravenous administration of iodinated contrast. Coronal and sagittal MIPS were obtained fr om the axial data set and were submitted for review. Automated dose lowering techniques and/or adjus tment according to patient size were utilized for this examination. All measurements were calculated based on NASCET criteria. CT DOSE: 1132.42 mGy.cm Comparison: None available at the time of this dictation. FINDINGS: CT head: There is no acute intracranial hemorrhage or evidence of acute territorial infarction. No sh ift of the midline structures, mass effect, or extra-axial abnormalities are shown. Given septum dionna ucidum is incidentally seen. Small thyroid nodules are seen which do not require follow-up by ACR criteria. CTA Neck: A 3 vessel aortic arch is shown. There is no significant atherosclerotic plaque in the aor tic arch or the origins of the innominate, left common carotid, and left subclavian arteries. The co mmon carotid, external carotid, cervical segments of the internal carotid arteries, and the cervical segments of the vertebral arteries are patent without hemodynamically significant stenosis. The left vertebral artery is dominant. CTA Head: The anterior and posterior cerebral circulations are patent. No hemodynamically significan t stenosis, aneurysm, dissection, or arteriovenous malformation is shown. IMPRESSION: 1. No acute intracranial hemorrhage, evidence of acute territorial infarction, or other acute intrac ranial disease process. 2. No occlusion, hemodynamically significant stenosis, or dissection in the major cervical arteries. 3. No occlusion, hemodynamically significant stenosis, aneurysm, dissection, or arteriovenous malfor mation in the major intracranial arteries. Assessment of stenosis of the internal carotid arteries is based on NASCET criteria. ACT 112: Negative or not required by law. Electronically signed by: David Coelho M.D. 05/03/2023 1:18 PM
[2023-05-03] MEDS: PANTOprazole 40 MG TAB PO SCH (14:15)
--- NOTE | 2023-05-03 15:42 | Communication Note ---
Date of Service: May 03, 2023 Patient seen and examined Exam notable for reduced power 4/5 in LUE/LLE. Patient protrudes tongue to right. PERRLA. No facial palsy/dysarthria. No sensory deficits MRI brain was unremarkable However, family reported CT head at [facility] noted some abnormality. CT report noted slightly irregular hypodense area [id number] in left temporal lobe with mild mass effect on ipsilateral temporal horn of left ventricle Discussed with Neurologist who recommends CTA head and neck w/wo co, MRI cervical/thoracic w/wo co and MRI lumbar. Will continue stroke workup : TTE, Lipid panel, A1c PT/OT/PTA eval Other plans as detailed in H&P this AM
[2023-05-03] MEDS: CITALOPRAM 20 MG TAB PO SCH (15:46)
--- NOTE | 2023-05-03 17:54 | Magnetic Resonance Report ---
MRI OF THE LUMBAR SPINE WITHOUT CONTRAST CLINICAL HISTORY: Left-sided weakness. COMPARISON STUDY: No previous studies for comparison. TECHNIQUE: Utilizing a 1.5 Paz magnet and dedicated coil, multiplanar, multiecho imaging of the [facility] spine was performed without IV contrast. FINDINGS: For purposes of numbering on this exam, the L5-S1 disc space is assigned to axial image 23 of 25. West tebral body heights are maintained. Several Schmorl's nodes are present. No marrow edema or marrow pl acement is present. There is no intracanalicular mass or fluid collection. The conus terminates at th e upper L1 level. Paravertebral soft tissues are unremarkable. Mild multilevel disc space narrowing, osteophytosis and facet arthrosis within the lumbar spine is present. L1-2: There is mild disc space narrowing. The central canal and neural foramen are patent. L2-3: The central canal and neural foramen are patent. L3-4: There is mild disc space narrowing with disc bulge and facet arthrosis with ligamentous hypertr ophy. The central canal is patent. Left neural foramen is patent. There is mild right neural foramina l stenosis. L4-5: There is mild facet arthrosis. There is minimal disc bulge. Central canal is patent. There is m ild bilateral neural foraminal stenosis. L5-S1: There is mild disc space narrowing. There is a central annular tear. Minimal disc bulge. Centr al canal is patent. Neural foramen are patent. IMPRESSION: 1. No acute process within the lumbar spine by MRI. 2. Mild multilevel degenerative disc disease and facet arthrosis, as above. No significant central ca nal stenosis. ACT 112: Negative or not required by law. Electronically signed by: German Patrick M.D. 05/03/2023 5:52 PM
[2023-05-03] MEDS ORDERED: GADOBUTROL 65ML VIAL IV ONE (18:51)
--- NOTE | 2023-05-03 19:24 | Magnetic Resonance Report ---
MRI OF THE CERVICAL SPINE WITH AND WITHOUT CONTRAST CLINICAL HISTORY: Left sided weakness. COMPARISON: CTA of the neck May 03, 2023. TECHNIQUE: Utilizing a 1.5 Paz magnet and dedicated coil, multiplanar, multiecho imaging of the ce rvical spine was performed before and after intravenous administration of 7.4 of Gadavist. FINDINGS: Vertebral body heights are maintained. Slight retrolisthesis of C6 on C7 is chronic. No cervical spin e fracture is present. No intracanalicular mass or fluid collection is present. No abnormal enhanceme nt within the central canal the cervical spine is noted although postcontrast sequences are moderatel y compromised by motion artifact. C2-C3: The central canal and right neural foramen are patent. There is moderate narrowing of the lef t neural foramen due to facet arthrosis and uncovertebral hypertrophy. C3-C4: The central canal and right neural foramen are patent. There is moderate narrowing of the lef t neural foramen due to facet arthrosis and uncovertebral hypertrophy. C4-C5: The central canal is patent. Mild right and mild to moderate left neural foraminal stenosis i s present. C5-C6: The central canal is patent. There is moderate bilateral neural foraminal stenosis due to fac et arthrosis and uncovertebral hypertrophy. C6-C7: Moderate disc space narrowing is noted. The posterior discussed by complex which effaces the ventral thecal sac. There is mild central canal stenosis. Cervical cord signal is normal. There is mo derate to severe bilateral neural foraminal stenosis due to uncovertebral hypertrophy and facet arthr osis. C7-T1: The central canal and neural foramen are patent. IMPRESSION: 1. Exam mildly compromised by motion artifact but no cervical cord signal abnormality identified. 2. Mild central canal stenosis at C6-C7. Multilevel neural foraminal stenosis, as above. This is most pronounced at the C6-C7 level. 3. No cervical spine fractures. ACT 112: Negative or not required by law. Electronically signed by: German Patrick M.D. 05/03/2023 7:22 PM
--- NOTE | 2023-05-03 19:29 | Magnetic Resonance Report ---
MRI OF THE THORACIC SPINE WITH AND WITHOUT CONTRAST CLINICAL HISTORY: Left sided weakness. COMPARISON: None. TECHNIQUE: Utilizing a 1.5 Paz magnet and dedicated coil, multiplanar, multiecho imaging of the th oracic spine was performed before and after the intravenous administration of 7.4 cc. FINDINGS: Alignment of the thoracic spine is anatomic. Vertebral body heights are maintained. No frac ture is present. There is no suspicious marrow replacement. No intracanalicular mass or fluid collect ion is present. The axial sequences are significantly compromised by motion artifact. However, no tho racic cord signal abnormality is identified. Central canal and neural foramen are patent. There are n o disc herniations. No abnormal enhancement within the thoracic canal is noted although postcontrast sequences are also compromised by motion artifact. A 1.1 cm left lobe thyroid nodule is incidentally noted. Bilateral renal lesions are suboptimally assessed due to motion artifact but probably reflect cysts. IMPRESSION: 1. Exam moderately compromised by motion artifact. No significant abnormality within the thoracic spi ne identified. 2. Normal thoracic cord signal and caliber. 3. Patent central canal and neural foramen. No disc herniations. ACT 112: Negative or not required by law. Electronically signed by: German Patrick M.D. 05/03/2023 7:26 PM
[2023-05-04] MEDS: PANTOprazole 40 MG TAB PO SCH (07:39)
[2023-05-04] MEDS: CITALOPRAM 20 MG TAB PO SCH (07:39)
[2023-05-04] MEDS: HYDROmorphone INJ 0.5 MG/0.5 ML SYR IV PRN ×3 (07:42→21:02)
[2023-05-04 08:34] LABS: Basophils # (auto) 0.04 K/uL (0.00-0.20); Basophils % (auto) 0.8 %; Eosinophils # (auto) 0.05 K/uL (0.00-0.50); Eosinophils % (auto) 1.1 %; Hematocrit (blood only) 42.4 % (42.0-52.0); Hemoglobin 13.5 g/dl (14.0-18.0); Immature Granulocytes # (auto) 0.05 K/uL (0.01-0.20); Immature Granulocytes % (auto) 1.1 %; Lymphocytes # (auto) 0.93 K/uL (1.20-3.40); Lymphocytes % (auto) 19.7 %; Mean Corpuscular Hemoglobin 28.2 pg (25.0-34.0); Mean Corpuscular Hgb Conc 31.8 g/dL (32.0-36.0); Mean Corpuscular Volume 88.5 fL (80.0-100.0); Monocytes # (auto) 0.52 K/uL (0.11-0.59); Neutrophils # (auto) 3.14 K/uL (1.40-6.50); Neutrophils % (auto) 66.3 %; Platelet Count 194 K/uL (130-400); RDW Coefficient of Variation 13.6 % (11.5-14.5); RDW Standard Deviation 44.3 fL (36.4-46.3); Red Blood Count 4.79 M/uL (4.70-6.10); White Blood Count 4.73 K/ul (4.8-10.8)
[2023-05-04 08:52] LABS: Estimated Average Glucose 111 mg/dl; Hemoglobin A1C 5.5 % (4.5-5.6)
[2023-05-04 08:56] LABS: Calcium 8.8 mg/dl (8.6-10.3); Chol HDL Ratio 3.6 (0-5); Creatinine Clr Calc Pharmacy 101.4 ml/min; Est GFR (African American) 106.4 ml/min; Est GFR (Non-African American) 91.8 ml/min; Potassium 4.2 mmol/L (3.5-5.1)
--- NOTE | 2023-05-04 10:56 | Hospitalist Progress Note ---
Date of Service May 04, 2023 Assessment & Plan (1) Stroke-like symptoms: Plan: 42-year-old male with past medical history significant for Geovanni's thyroiditis, GERD, panic disorder, anxiety, ADHD, comes with strokelike symptoms. Patient recently seemed to had COVID as per about a week ago and was tested negative on last Wednesday. During COVID he had severe headaches. Around 9:30 PM the night prior to presentation here, patient went to sleep. When checked on him he was very hot. When she tried to talk to him he was slurring in speech and also had some left-sided facial droop and left-sided weakness. She took the patient to [facility]. CT head scan done in [facility] showed 19mm x 17mm left temporal lobe lesion with mild mass effect on ipsilateral temporal horn of the left temporal ventricle. Acute infarct vs neoplasm. CTA head and neck were ok. [facility] tried to transfer to [place] for MRI but no bed until later so drove him here.. Strokelike symptoms Possible TIA MRI head done here was unremarkable Reviewed CTA head/neck here which were unremarkable Cervical spine MRI noted mild central canal stenosis at C6-7 and neural foraminal stenosis most pronounced at C6-7 Thoracic spine MRI unremarkable Lumbar spine MRI noted multilevel DDD, no significant stenosis Findings on MRI spine will not explain patient's symptoms and presentation TTE noted normal EF 60-65%, No significant valvular pathology. No evidence of intracardiac shunt at rest but possible small intracardiac shunt with valsalva. 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 Patient may need AL for better evaluation of possible shunt. Neuro recommends patient to follow up with Neuro outpatient PCP can set up outpatient loop recorder/zio patch testing to rule out Afib PCP can arrange hypercoagulable workup as well History of depression and anxiety Continue citalopram GERD Protonix DVT prophylaxis SCDs for now Disposition Telemetry floor Full code updated about plans I spent a total of 55 minutes coordinating, documenting and providing care for this patient excluding time spent in performance of separately billed services Admission and Anticipated Discharge Date Admission Date: May 03, 2023 Subjective Patient seen and examined Reports improvement in left sided weakness Reports some headache and congestion. Denied any blurry vision, dysphagia, dysarthria, sensory deficits Denied any dizziness Denied any cough, chest pain, SOB, abd pain, nausea, vomiting, diarrhea, constipation, dysuria, freq, urgency, incontinence Physical Exam Constitutional: + well hydrated; no acute distress Eyes: PERRL, conjunctivae normal, anicteric sclerae ENMT: external ear and nose normal, oropharynx normal Respiratory: normal respiratory effort, lungs clear to auscultation Cardiovascular: Rate/Rhythm: regular rate and regular rhythm S1 S2 Gastrointestinal (Abdomen): normal bowel sounds, soft, nontender, no hepatosplenomegaly Musculoskeletal: No pedal edema Neurologic: PERRL, EOMI, accommodation nl, no face palsy, no dysarthria No tongue deviation Power is 5/5 in both UE and RLE, 4/5 in LLE No sensory deficits noted Psychiatric: A+Ox3, euthymic affect Results & Data Results & Data Vital Signs (Past 12 Hours) Vital Signs Temp Pulse Pulse Resp BP Pulse Ox O2 Del Method 05/04/23 07:36 37.0 C 67 18 113/68 97 Room Air 05/04/23 07:15 65 05/04/23 03:41 36.4 C L 61 18 122/62 98 Room Air Laboratory Results Abnormal lab results 05/04/23 Range/Units 08:09 WBC 4.73 L (4.8-10.8) K/ul Hgb 13.5 L (14.0-18.0) g/dl MCHC 31.8 L (32.0-36.0) g/dL Lymph # (Auto) 0.93 L (1.20-3.40) K/uL Chloride 109 H (98-107) mmol/L Triglycerides 160 H (0-150) mg/dl VLDL Cholesterol, Calc 32 H (0-30) mg/dl
--- NOTE | 2023-05-04 11:58 | Electrocardiogram Report ---
Test Reason : Blood Pressure : / mmHG Vent. Rate : 064 BPM Atrial Rate : 064 BPM P-R Int : 176 ms QRS Dur : 078 ms QT Int : 350 ms P-R-T Axes : 064 069 035 degrees QTc Int : 361 ms Normal sinus rhythm Possible Left atrial enlargement Abnormal ECG No previous ECGs available Confirmed by Zay Holt ([id number]) on 05/04/2023 11:58:16 AM Referred By: REFERRED SELF Confirmed By:Abdirashid Holt
--- NOTE | 2023-05-04 12:02 | Electrocardiogram Report ---
Test Reason : Blood Pressure : / mmHG Vent. Rate : 071 BPM Atrial Rate : 071 BPM P-R Int : 166 ms QRS Dur : 084 ms QT Int : 356 ms P-R-T Axes : 057 077 021 degrees QTc Int : 386 ms Normal sinus rhythm Possible Left atrial enlargement Borderline ECG When compared with ECG of 03-MAY-2023 02:46, (unconfirmed) T wave inversion no longer evident in Anterior leads Confirmed by Zay Holt ([id number]) on 05/04/2023 12:02:30 PM Referred By: REFERRED SELF Confirmed By:Abdirashid Holt
[2023-05-04] MEDS ORDERED: LORATADINE 10 MG TAB PO ONE (12:09)
--- NOTE | 2023-05-04 16:18 | Cardiology Consultation ---
Date of Consultation May 04, 2023 Assessment & Plan (1) Stroke-like symptoms: (2) TIA (transient ischemic attack): (3) Abnormal echocardiogram: (4) Smokeless tobacco use: Plan 42-year-old male admitted on May 03, 2023 with strokelike symptoms, transient ischemic attack on May 02, 2023, 1.5 to 2 weeks after having COVID. Cardiology consultation requested due to the TIA, and abnormal resting echocardiography this admission revealing possible small intracardiac shunt with injection of agitated saline contrast and Valsalva. Orders written for the patient to be NPO after midnight in anticipation of possible transesophageal echocardiography (AL) with Dr. Lucas in the morning. Maintain telemetry. If telemetry is benign recommend outpatient 14- day ZIO monitor prior to Electrophysiology referral for loop recorder implantation. Recommend completing a comprehensive evaluation of the patient's symptoms. Blood cultures requested along with TFT's, Lyme screen and tox screens. Recommend hypercoagulable workup. Consider venous duplex and Chest CT to rule out PE. Agree with addition of aspirin, statin, risk factor, and lifestyle modification. Further recommendations to come. Supervising Physician Co-Signing Physician Notes 42-year-old patient admitted with strokelike symptoms, left-sided hemiparesis, word finding issues, and tongue deviation. MRI negative for CVA. Mild left lower extremity weakness noted. Denies chest pain or shortness of breath. No palpitations, lightheadedness, or dizziness. PE: Gen: NAD, AAO x 3. Heart: Regular rhythm, normal S1-S2. No murmur. Lungs: Clear bilateral, no rales, rhonchi, wheeze. Extremities: No edema. Neuro: Mild left lower extremity weakness. A/P: Agree with above AP history, physical exam, assessment and plan. Equivocal graphic findings of a possible PFO noted. Recommend transesophageal echocardiogram for further evaluation. N.p.o. except medications after midnight. Anesthesia consultation placed. Outpatient 14-day ZIO monitor, hypercoagulable workup, Lyme/tox screens, and blood cultures as noted above. History of Present Illness Reason for Consultation: "Neuro request for eval based on TTE, possible TIA" Requesting Physician: Dr. Shira Hernadez Attending Physician: Shira Hernadez MD History of Present Illness Mr. Sb Trinidad Jr. is a very pleasant 42-year-old male who had COVID 1.5 to 2 weeks ago. On the patient was running around visiting family without significant difficulty. He notes early that evening feeling more tired than usual and began to feel unwell. He went to bed early and his significant other noticed that he seemed to be hot. He describes feeling his head pounding, "feeling like it was going to explode." He took 2 NyQuil and got up and got dressed, experiencing chest discomfort as well as left sided weakness. On the way to the [place] ER they called 911. In the ER they recall having an EKG performed as well as laboratory work including troponin x 2 which were both negative. Significant other recalls his blood pressure being 165/90. He recalls receiving 0.5 mg of Ativan and undergoing a chest x-ray as well as a CT scan of the head. Abnormal CT scan of the head led to recommendation for transfer to [facility]. Unfortunately, no beds were available leaving [facility] and presenting to [facility] ER with strokelike symptoms including left hemiparesis, dysarthria, and tongue deviation. Patient went extensive imaging throughout hospitalization including the following: - Brain MRI showed no evidence acute intracranial pathology - Head CTA showed no acute intracranial hemorrhage, evidence of acute territorial infarction, or other acute intracranial disease process. There was no occlusion, hemodynamically significant stenosis, or dissection in the major cervical or intracranial arteries and no aneurysm, dissection, or AV malformation in the major intracranial arteries - Thoracic spine MRI showed normal thoracic cord signal and caliber with no disc herniation Lumbar spine MRI showed no acute process, revealing mild multilevel degenerative disc disease without central canal stenosis - Cervical spine MRI revealed mild central canal stenosis at C6-C7 with multilevel neural foraminal stenosis most pronounced at C6-C7 Cardiac workup thus far included admission EKG revealing normal sinus rhythm with possible left atrial enlargement, QTc 361 ms. A second EKG on May 03, 2023 revealed normal sinus rhythm at 71 bpm with possible left atrial enlargement and a QTc of 386 ms. Continuous phototypesetting equipment monitor has revealed sinus throughout with heart rates predominantly in the 60s and 70s. Resting echocardiography on May 03, 2023 revealed normal LV systolic function, EF 60 to 65%. No significant valve pathology observed. No evidence of intracardiac shunt at rest with injection of agitated saline contrast. Possible small intracardiac shunt (less than 5 bubbles) with injection of agitated saline contrast and Valsalva. Patient describes having a history of thyroid problems in his late 20s, Geovanni's thyroiditis. Additional issues include GERD acceptably controlled on pantoprazole, anxiety and panic disorder, ADHD, and significant allergies. Past Surgical History includes wisdom teeth extraction at the age of 15 and hypospadias repair as a Family history: Mother is alive at 68 without cardiac issues. Father has hypertension. Maternal grandparents had coronary artery disease with paternal grandfather passing with congestive heart failure maternal grandmother passing with CAD. 2 brothers without cardiac issues. Social History: No cigarettes. Chronic smokeless tobacco user. No illegal drug use. Rare/social alcohol. Lives in [place]. Works in the [employer] at [employer]. Allergies Allergy/AdvReac Type Severity Reaction Status Date / Time bacitracin Allergy Intermediate Rash Verified 05/03/23 02:54 [From Neosporin ([id number])] neomycin Allergy Intermediate Rash Verified 05/03/23 02:54 [From Neosporin ([id number])] polymyxin B Allergy Intermediate Rash Verified 05/03/23 02:54 [From Neosporin ([id number])] Home Medications Medication Instructions Recorded Confirmed Type citalopram 20 mg tablet 20 mg PO DAILY 05/03/23 05/03/23 History [id number] 6.25 2 cap PO DIRECTED PRN Cold 05/03/23 05/03/23 History mg-15 mg-325 mg capsule (Vicks Symptoms NyQuil Cold/Flu Liquicap) pantoprazole 40 mg tablet,delayed 40 mg PO DAILY 05/03/23 05/03/23 History release Patient History Social History Smoking Status: Never smoker Tobacco Type: Smokeless Tobacco (Dip or Chew) Do You Dip or Chew Tobacco: Yes; Tobacco Cessation Education Requested by Patient: No Hx Alcohol Use: Yes Alcohol type: beer Hx Substance Use: No Preferred Language: Persian Communication Ability: Effective Scrap Charger Required: No Beliefs That Will Affect Care: None Current Living Situation: Spouse and Family Current Living Situation Comment: one daughter at times in college Other Information That Helps Us Care for You: No Feels Safe at Home: Yes Safety Concerns: Feels Safe At This Time Assistive Devices: Contacts and Glasses Review of Systems Review of Systems: Complete review of systems is otherwise as stated above, negative, or noncontributory Physical Exam Physical Exam: General: A&Ox3. NAD. HENT: Normocephalic. Atraumatic. Eyes: PER. Conjunctiva pink, sclera clear. Neck: No carotid bruits. No JVD. Heart: RRR. No murmur. Lungs: Clear to auscultation. Abdomen: +BS. Soft. Nontender. No masses or organomegaly. Extremities: No evidence of cellulitis. No clubbing, cyanosis, or edema. Skin: Multiple tattoos. Small healing excoriation on the right mid mckeon. Limited neurological examination is without focal deficits. Pulses: Posterior tibial=2/4. Results & Data Vital Signs (Past 12 Hours) Vital Signs Temp Pulse Pulse Resp BP Pulse Ox O2 Del Method 05/04/23 15:35 36.8 C 57 L 18 137/84 98 Room Air 05/04/23 11:02 36.7 C 66 18 131/76 96 Room Air 05/04/23 07:36 37.0 C 67 18 113/68 97 Room Air 05/04/23 07:15 65 Laboratory Results Lipids 05/04/23 Range/Units 08:09 Triglycerides 160 H (0-150) mg/dl Cholesterol 178 (0-200) mg/dl HDL Cholesterol 50 mg/dl Cholesterol/HDL Ratio 3.6 (0-5) CBC 05/04/23 Range/Units 08:09 WBC 4.73 L (4.8-10.8) K/ul RBC 4.79 (4.70-6.10) M/uL Hgb 13.5 L (14.0-18.0) g/dl Hct 42.4 (42.0-52.0) % Plt Count 194 (130-400) K/uL Neut # (Auto) 3.14 (1.40-6.50) K/uL Lymph # (Auto) 0.93 L (1.20-3.40) K/uL Gilmer # (Auto) 0.52 (0.11-0.59) K/uL Eos # (Auto) 0.05 (0.00-0.50) K/uL Baso # (Auto) 0.04 (0.00-0.20) K/uL Comprehensive Metabolic Panel 05/04/23 Range/Units 08:09 Sodium 141 (136-145) mmol/L Potassium 4.2 (3.5-5.1) mmol/L Chloride 109 H (98-107) mmol/L Carbon Dioxide 28 (21-32) mmol/L BUN 17 (6-23) mg/dl Creatinine 1.00 (0.6-1.4) mg/dl Glucose 86 (70-99(Fasting)) mg/dl Calcium 8.8 (8.6-10.3) mg/dl Intake and Output 05/04/23 05/04/23 05/04/23 06:59 14:59 22:59 Intake Total 1740 / 1740 Balance 1740 / 1740 Intake: IV 1000 / 1000 Sodium Chloride 0.9% 1,000 ml @ 1000 / 1000 125 mls/hr IV .Q8H GUILLERMO Rx#: [id number] Oral 740 / 740 Other: # Unmeasured Voids 1 2 Weight 78 kg Weight Measurement Method Built [facility]
[2023-05-04 17:27] LABS: Magnesium 1.8 mg/dl (1.7-2.4)
[2023-05-04] MEDS: ASPIRIN 81 MG ECTAB PO SCH (17:32)
[2023-05-04 17:42] LABS: Thyroid Stimulating Hormone 8.481 uIu/ml (0.300-4.500)
[2023-05-04 17:56] LABS: Lyme Ab IgG w/WB Rflx Negative (Negative)
[2023-05-04 17:58] LABS: Lyme Ab IgM w/WB Rflx Equivocal (Negative)
[2023-05-04 18:17] LABS: T4 Free Thyroxine 0.73 ng/dl (0.61-1.60)
[2023-05-04 18:47] LABS: Amphetamines+Metham, Urine Neg (Neg); Barbiturates, Urine Neg (Neg); Benzodiazepine, Urine Neg (Neg); Cocaine, Urine Neg (Neg); MDMA (Ecstacy), Urine Neg (Neg); Marijuana, Urine Neg (Neg); Methadone, Urine Neg (Neg); Opiate, Urine Neg (Neg); Phencyclidine, Urine Neg (Neg)
[2023-05-04] MEDS ORDERED: LORazepam 0.5 MG TAB PO STA (20:57)
[2023-05-04] MEDS ORDERED: ATORVASTATIN 40 MG TAB PO SCH (21:00)
[2023-05-05] MEDS ORDERED: PROPOFOL IV EMULSION 10 MG/ML 20 ML VIAL IV ONE ×2 (07:08→08:23)
[2023-05-05] MEDS ORDERED: BENZOCAINE/TETRACAIN/BUTAM 50 APPLN/5 GM CAN EXT ONE (07:20)
--- NOTE | 2023-05-05 07:20 | Anesthesiology Consultation ---
Date of Service May 05, 2023 Assessment & Plan Chart Review Chart Review: Acceptable Risk for Surgery and Patient NOT seen in Pre Admission Testing Consults Requested none History Surgery Operation Date: 05/05/23 07:45 Proposed Procedures p Transesophageal Echo w/Anesthesia - Breezy Lucas DO Height/Weight Height: 5 ft 11 in Weight: 78 kg Allergies Allergy/AdvReac Type Severity Reaction Status Date / Time bacitracin Allergy Intermediate Rash Verified 05/03/23 02:54 [From Neosporin ([id number])] neomycin Allergy Intermediate Rash Verified 05/03/23 02:54 [From Neosporin ([id number])] polymyxin B Allergy Intermediate Rash Verified 05/03/23 02:54 [From Neosporin ([id number])] Medications Home Medications Medication Instructions Recorded Confirmed Last Taken citalopram 20 mg tablet 20 mg PO DAILY 05/03/23 05/03/23 05/02/23 [id number]-RG-hnbicenuyaccp 6.25 2 cap PO DIRECTED PRN Cold 05/03/23 05/03/23 05/02/23 21:30 mg-15 mg-325 mg capsule (Vicks Symptoms NyQuil Cold/Flu Liquicap) pantoprazole 40 mg tablet,delayed 40 mg PO DAILY 05/03/23 05/03/23 05/02/23 release Active Medications Generic Name Dose Route Start Last Admin Trade Name Freq PRN Reason Stop Dose Admin Aspirin 81 mg 05/04/23 15:00 05/04/23 17:32 Aspirin 81 Mg Ectab PO 06/03/23 14:59 81 mg QAM GUILLERMO Administration Atorvastatin Calcium 40 mg 05/04/23 21:00 05/04/23 21:01 Atorvastatin 40 Mg Tab PO 06/03/23 20:59 40 mg HS GUILLERMO Administration Citalopram Hydrobromide 20 mg 05/03/23 09:43 05/04/23 07:39 Citalopram 20 Mg Tab PO 06/02/23 09:42 20 mg DAILY GUILLERMO Administration Hydromorphone HCl 0.5 mg 05/03/23 08:42 05/04/23 21:02 Hydromorphone Inj 0.5 Mg/0.5 Ml Syr IV 05/17/23 08:41 0.5 mg Q3H PRN Administration Severe Pain (Scale 7, 8, 9,10) Acetaminophen 1,000 mg in 100 mls @ 400 mls/hr 05/03/23 09:43 05/03/23 20:30 Ofirmev IV 05/06/23 09:42 Infused Q8H PRN Infusion Pain or Fever Pantoprazole Sodium 40 mg 05/03/23 09:43 05/04/23 07:39 Pantoprazole 40 Mg Tab PO 06/02/23 09:42 40 mg DAILY GUILLERMO Administration Social History Smoking Status: Never smoker Do You Dip or Chew Tobacco: Yes Hx Alcohol Use: Yes Alcohol type: beer alcohol intake frequency: holidays/special occasions only Hx Substance Use: No substance use type: does not use Physical Exam Vital Signs Last Vital Signs Temp 36.5 C 05/05/23 04:00 Pulse 78 05/05/23 07:10 Resp 18 05/05/23 04:00 BP 121/77 05/05/23 04:00 Pulse Ox 97 05/05/23 04:00 O2 Del Method Room Air 05/05/23 04:00 Testing Laboratory Results 05/04/23 08:09 05/04/23 08:09 Hemoglobin A1c 5.5 % (4.5-5.6) 05/04/23 08:09
--- NOTE | 2023-05-05 07:45 | History & Physical Bridge Note ---
Date of Service May 05, 2023 History & Physical Bridge Note I have examined the patient, reviewed the History & Physical and in the interval since the performance of the History & Physical I have noted the following changes of clinical significance: no changes noted. Complete cardiology consultation was performed yesterday by Armin Manning PA-C and Dr Prather. The patient's presenting symptoms of left-sided weakness and left facial droop have subsided. He states he still has a residual headache. A transthoracic echocardiogram had been performed during this hospital stay for evaluation of cardiac source of embolism with findings of an interatrial shunt. Transesophageal echocardiogram therefore recommended for further evaluation. Informed consent was obtained. Patient elects to proceed.
--- NOTE | 2023-05-05 07:55 | Pharmacy Report ---
- Date of Service May 05, 2023 - Pharmacy CVA/TIA Medication Review Medications to Prevent Stroke handout has been added to the patients discharge packet. Antiplatelet(s) * Aspirin 81 mg daily Cholesterol * High intensity statin: atorvastatin 40 mg daily DVT Prophylaxis * Pharmacologic and mechanical DVT prophylaxis deferred due to procedure Therapeutic Anticoagulation * No history of Afib/Aflutter noted- patient to have evaluation outpatient Type 2 Diabetes * Patient does not have T2DM
--- NOTE | 2023-05-05 08:12 | Post Operative Brief Note ---
Cardiology Brief Post Op Date of Surgery May 05, 2023 Pre & Post Diagnosis Operation Date: 05/05/23 07:45 Preprocedure diagnosis: TIA, evaluate for cardiac source of cerebral embolism Post procedure diagnosis: No cardiac source of cerebral embolism identified Procedure Transesophageal echocardiogram procedure: After informed consent was obtained and timeout was performed the patient was sedated with the assistance of the anesthesia service receiving a total of 450 mg of IV propofol. There were no significant valvular abnormalities. The interatrial septum was intact without suggestion of interatrial shunt with administration of agitated saline contrast. House Manager Breezy Lucas DO Elevator Operator Service Pina Martinez, ANN Estimated Blood Loss 0 Findings Consistent with Post-Op Diagnosis as noted above Anesthesia Type MAC Complications none
--- NOTE | 2023-05-05 08:49 | Anesthesiology Progress Note ---
Date of Service May 05, 2023 Anesthesia Post Procedure Vital Signs Vital Signs: Temp Pulse Pulse Resp BP Pulse Ox O2 Del Method 05/05/23 08:30 56 L 16 97/56 L 97 Room Air 05/05/23 08:15 56 L 16 91/55 L 98 Oxymask 05/05/23 07:15 59 L 18 119/75 97 Room Air 05/05/23 07:10 78 05/05/23 04:00 36.5 C 61 18 121/77 97 Room Air 05/04/23 23:00 68 05/04/23 22:10 37 C 66 18 125/79 96 Room Air 05/04/23 19:26 37 C 61 18 134/86 98 Room Air 05/04/23 15:35 36.8 C 57 L 18 137/84 98 Room Air 05/04/23 14:02 58 L 05/04/23 11:02 36.7 C 66 18 131/76 96 Room Air O2 Flow Rate 05/05/23 08:30 05/05/23 08:15 10 05/05/23 07:15 05/05/23 07:10 05/05/23 04:00 05/04/23 23:00 05/04/23 22:10 05/04/23 19:26 05/04/23 15:35 05/04/23 14:02 05/04/23 11:02 Pain Intensity Head: Pain Intensity: 5 Transfer of Care Handoff Completed per policy Notes Mental Status: alert / awake / arousable Patient Amnestic to Procedure: Yes Nausea / Vomiting: adequately controlled Pain: adequately controlled Airway Patency, RR, SpO2: stable & adequate BP & HR: stable & adequate Hydration State: stable & adequate Anesthetic Complications: no major complications apparent and Pt Satisfied with anesthetic care
[2023-05-05] MEDS ORDERED: LORATADINE 10 MG TAB PO SCH (09:00)
[2023-05-05] MEDS: ASPIRIN 81 MG ECTAB PO SCH (09:12)
[2023-05-05] MEDS: CITALOPRAM 20 MG TAB PO SCH (09:13)
[2023-05-05] MEDS: PANTOprazole 40 MG TAB PO SCH (09:13)
[2023-05-05 09:48] LABS: Calcium 9.8 mg/dl (8.6-10.3); Creatinine Clr Calc Pharmacy 101.4 ml/min; Est GFR (African American) 106.4 ml/min; Est GFR (Non-African American) 91.8 ml/min; Potassium 4.5 mmol/L (3.5-5.1)
[2023-05-05 09:54] LABS: Basophils # (auto) 0.05 K/uL (0.00-0.20); Basophils % (auto) 1.2 %; Eosinophils # (auto) 0.06 K/uL (0.00-0.50); Eosinophils % (auto) 1.4 %; Hematocrit (blood only) 44.9 % (42.0-52.0); Hemoglobin 14.6 g/dl (14.0-18.0); Immature Granulocytes # (auto) 0.04 K/uL (0.01-0.20); Immature Granulocytes % (auto) 0.9 %; Lymphocytes # (auto) 1.25 K/uL (1.20-3.40); Lymphocytes % (auto) 28.9 %; Mean Corpuscular Hemoglobin 28.6 pg (25.0-34.0); Mean Corpuscular Hgb Conc 32.5 g/dL (32.0-36.0); Mean Platelet Volume 9.9 fL (9.4-12.4); Monocytes # (auto) 0.66 K/uL (0.11-0.59); Monocytes % (auto) 15.2 %; Neutrophils # (auto) 2.27 K/uL (1.40-6.50); Neutrophils % (auto) 52.4 %; Platelet Count 234 K/uL (130-400); RDW Coefficient of Variation 13.4 % (11.5-14.5); RDW Standard Deviation 43.8 fL (36.4-46.3); White Blood Count 4.33 K/ul (4.8-10.8)
--- NOTE | 2023-05-05 10:30 | Cardiology Progress Note ---
Date of Service May 05, 2023 Assessment & Plan (1) TIA (transient ischemic attack): Plan: AL negative for cardiac source of cerebral aneurysm. MRI of brain without abnormality SR on telemetry. No significant vascular risk factors LDL cholesterol 96 mg/dl. Continue aspirin 81 mg daily. Consider 21 day course of clopidogrel. Recommend 2 week ZioPatch monitor which can [facility] at [facility] or [facility]. Admission and Anticipated Discharge Date Admission Date: May 03, 2023 Subjective Patient reassessed post AL. Feeling well. Telemetry reveals SR in the 60-80s. Notes resolution of his presenting symptoms of left sided weakness, slurred speech, and left sided facial droop. Has persistent headache. Physical Exam Constitutional: WD/WN, vitals as above Eyes: PERRL, conjunctivae normal, anicteric sclerae Respiratory: normal respiratory effort, lungs clear to auscultation Cardiovascular: RRR, no murmur, no edema Gastrointestinal (Abdomen): normal bowel sounds, soft, nontender, no hepatosplenomegaly Neurologic: PERRL, EOMI, accommodation nl, no face palsy, no dysarthria Results & Data Vital Signs (Past 12 Hours) Vital Signs Temp Pulse Pulse Pulse Resp BP Pulse Ox 05/05/23 10:08 36.4 C L 69 20 143/78 H 99 05/05/23 09:12 36.7 C 59 L 18 115/79 96 05/05/23 08:42 36.5 C 62 18 111/71 97 05/05/23 08:30 56 L 16 97/56 L 97 05/05/23 08:15 56 L 16 91/55 L 98 05/05/23 08:12 36.5 C 57 L 18 105/61 95 05/05/23 07:15 59 L 18 119/75 97 05/05/23 07:10 78 05/05/23 04:00 36.5 C 61 18 121/77 97 05/04/23 23:00 68 O2 Del Method O2 Flow Rate 05/05/23 10:08 Room Air 05/05/23 09:12 Room Air 05/05/23 08:42 Room Air 05/05/23 08:30 Room Air 05/05/23 08:15 Oxymask 10 05/05/23 08:12 Room Air 05/05/23 07:15 Room Air 05/05/23 07:10 05/05/23 04:00 Room Air 05/04/23 23:00 Laboratory Results CBC 05/05/23 Range/Units 09:18 WBC 4.33 L (4.8-10.8) K/ul RBC 5.10 (4.70-6.10) M/uL Hgb 14.6 (14.0-18.0) g/dl Hct 44.9 (42.0-52.0) % Plt Count 234 (130-400) K/uL Neut # (Auto) 2.27 (1.40-6.50) K/uL Lymph # (Auto) 1.25 (1.20-3.40) K/uL Mchenry # (Auto) 0.66 H (0.11-0.59) K/uL Eos # (Auto) 0.06 (0.00-0.50) K/uL Baso # (Auto) 0.05 (0.00-0.20) K/uL Comprehensive Metabolic Panel 05/05/23 Range/Units 09:18 Sodium 139 (136-145) mmol/L Potassium 4.5 (3.5-5.1) mmol/L Chloride 103 (98-107) mmol/L Carbon Dioxide 30 (21-32) mmol/L BUN 16 (6-23) mg/dl Creatinine 1.00 (0.6-1.4) mg/dl Glucose 89 (70-99(Fasting)) mg/dl Calcium 9.8 (8.6-10.3) mg/dl Intake and Output 05/04/23 05/05/23 05/05/23 22:59 06:59 14:59 Intake Total 350 0 Balance 350 2090 Intake: Oral 350 / 1090 Other: # Unmeasured Voids 1 1 Weight 78 kg 78 kg Weight Measurement Method Built in [facility] Patient Weight 05/06/23 06:59 Weight 78 kg
--- NOTE | 2023-05-05 12:27 | Communication Note ---
Date of Service: May 05, 2023 Discussed directly with primary/hospitalist team Dr. Ramírez Has undergone AL Recommend continue daily ASA & statin Recommend continued follow up with outpatient neurology Recommend hypercoagulable workup given patients age and no significant cerebrovascular/cardiovascular risk factors
--- NOTE | 2023-05-05 12:47 | Discharge Summary ---
Date of Service May 05, 2023 Admission HPI Per Admitting Provider 42-year-old male with past medical history significant for Geovanni's thyroiditis, GERD, panic disorder, anxiety, ADHD, comes with strokelike symptoms. Patient recently seemed to had COVID as per about a week ago and was tested negative on last Wednesday. During COVID he had severe headaches. Yesterday they came home after visiting family. Around 9:30 PM patient went to sleep. When checked on him he was very hot. When she tried to talk to him he was slurring in speech and also had some left-sided facial droop and left- sided weakness. She took the patient to [facility]. CT head scan done in [facility] showed 19mm x 17mm left temporal lobe lesion with mild mass effect on ipsilateral temporal horn of the left temporal ventricle. Acute infarct vs neoplasm.CTA head and neck were ok. [facility] tried to transfer to [place] for MRI but no bed until later today so drove him here.Currently speech is back to normal. Alert and oriented. Tongue is deviated to right side. Probable mild left facial droop. Having Weakness in the left lower extremity currently. Currently denies any headache. No blurred visions. No runny nose or sore throat. No chest pain or shortness of breath. No nausea. No abdominal pain. Hemodynamics are stable. Past medical history as mentioned above . Past surgical history. Hypospadias repair Social history. . Chews tobacco. Alcohol yes. no drug use. Family history. No family history on file Admission Exam Per Admitting Provider General- Not in acute distress Head- atraumatic Eyes- PERRL, EOMI, anicteric ENT- oropharynx clear Neck- supple, no JVD. Lungs- clear to auscultation no wheezing or crackles. Heart- regular rhythm; no murmur, no gallop. Abdomen- normal bowel sounds, soft, nontender, no distension Extremities- no pretibial edema, no erythema seen. Neuro- alert, oriented x 3; PERRL, EOMI; mild left facial droop,tounge deviated to right side. no dysarthria; power 5/5 bilaterally right extremities. 4/5 left upper extremity, 1/5 left lower extremity ; Co ordination of movements ok. No pronator drift, sensations intact. Skin- warm & dry Principal Diagnosis Strokelike symptoms History of depression and anxiety History of GERD Discharge Exam GENERAL: Alert and oriented x3. NAD, on RA. HEENT: No pallor, no icterus. Pupils equal, round and reactive to light. Oral mucosa moist. NECK: No JVD, no neck masses. HEART: S1 and S2 heard. Regular rate and rhythm. No murmur, no gallop. RESPIRATORY SYSTEM: Normal AP diameter. No accessory muscle use. No wheezing, no crackles. ABDOMEN: Soft, bowel sounds present, nontender, no distention. CENTRAL NERVOUS SYSTEM: No facial droop. Speech is clear. Obeys simple commands. Moves extremities. EXTREMITIES: No edema, no erythema seen. Discharge Data Allergies Allergy/AdvReac Type Severity Reaction Status Date / Time bacitracin Allergy Intermediate Rash Verified 05/03/23 02:54 [From Neosporin ([id number])] neomycin Allergy Intermediate Rash Verified 05/03/23 02:54 [From Neosporin ([id number])] polymyxin B Allergy Intermediate Rash Verified 05/03/23 02:54 [From Neosporin ([id number])] Consultations 05/03/23 06:00 ED Decision to Admit Stat 05/03/23 09:43 Consult Neurology Routine 05/04/23 15:01 Consult Cardiology Routine 05/04/23 17:25 Consult Anesthesiology Routine 05/04/23 18:20 Consult Psychiatry Routine Procedures Performed Operation Date: 05/05/23 07:45 Actual Procedures p Echo Transesophageal - DO teresa Tyson Echo Doppler Complete - DO teresa Tyson Echo Color Flow - Breezy Lucas DO Ordered Studies 05/03/23 03:39 MRI Brain [MR brain wo/w con] Stat 05/03/23 11:27 CT angio neck with con Stat CTA head wo/w [CT angio head wo/w] Stat MRI Cervical [MR cervical spine wo/w con] Stat MRI Lumbar Spine [MR lumbar spine wo con] Stat MRI Thoracic [MR thoracic spine wo/w con] Stat Hospital Course (1) Stroke-like symptoms: Per prior attending with addendum: 42-year-old male with past medical history significant for Geovanni's thyroiditis, GERD, panic disorder, anxiety, ADHD, comes with strokelike symptoms. Patient recently seemed to had COVID as per about a week ago and was tested negative on last Wednesday. During COVID he had severe headaches. Around 9:30 PM the night prior to presentation here, patient went to sleep. When checked on him he was very hot. When she tried to talk to him he was slurring in speech and also had some left-sided facial droop and left-sided weakness. She took the patient to [facility]. CT head scan done in [facility] showed 19mm x 17mm left temporal lobe lesion with mild mass effect on ipsilateral temporal horn of the left temporal ventricle. Acute infarct vs neoplasm. CTA head and neck were ok. [facility] tried to transfer to [place] for MRI but no bed until later so drove him here.. Strokelike symptoms Possible TIA MRI head done here was unremarkable Reviewed CTA head/neck here which were unremarkable Cervical spine MRI noted mild central canal stenosis at C6-7 and neural foraminal stenosis most pronounced at C6-7 Thoracic spine MRI unremarkable Lumbar spine MRI noted multilevel DDD, no significant stenosis Findings on MRI spine will not explain patient's symptoms and presentation TTE noted normal EF 60-65%, No significant valvular pathology. No evidence of intracardiac shunt at rest but possible small intracardiac shunt with valsalva. MANAGER SYSTEMS/PT/OT eval noted Reviewed with Neurologist Started on ASA and statin Neurologist recommends getting Carbon Electrodes Supervisor evaluation. Patient may need AL for better evaluation of possible shunt. Neuro recommends patient to follow up with Neuro outpatient PCP can set up outpatient loop recorder/zio patch testing to rule out Afib PCP can arrange hypercoagulable workup as well History of depression and anxiety Continue citalopram GERD Protonix DVT prophylaxis SCDs for now Disposition Telemetry floor Full code updated about plans Addendum: Patient was seen and examined at bedside, patient's at bedside. Patient reports improvement in his strength and reports feeling closer to his baseline. Patient denies any new complaints. Discussed with neurology, plan to continue with his statin and aspirin only for now with close follow-up with neurology as an outpatient. Discussed with psychiatry, patient does not want outpatient psychiatric evaluation, plan to discharge him on a few days worth of Ativan as needed for his anxiety. Patient to follow-up with PCP for ongoing management, highly recommended that he follow-up with outpatient psychiatry. Also noted that patient has declined outpatient physical therapy. But he reports he is back to his baseline strength now and moving around okay. He is being discharged with following instruction at the point of discharge: Follow-up with your primary care physician within a week time and likely you will need labs CBC/CMP/magnesium/phosphorus. For your strokelike symptoms, you underwent several imagings of Head and neck with no acute findings. Neurology evaluated you, recommended aspirin and statin. Follow-up with neurology within 1 to 2 weeks time upon discharge. You will need outpatient Zio patch monitoring, coordinate with your PCP or cardiology office to set up the test. You will need hypercoagulable workup as an outpatient, coordinate with your PCP office to set up the test. For your anxiety and depression, recommend to establish and follow-up with psychiatrist as an outpatient. Coordinated with your PCP office for referral. Take your medications as prescribed. Please make sure that you are able to get your medications today by calling your pharmacy before you leave the hospital so that your treatment continuity is not broken. Home Health Attestation I certify that this patient is under my care and that I, or a physicians personalized living assistant working with me, had a face to-face encounter that meets the home health dyak-kp-aept encounter requirements with this patient. The encounter with the patient was in whole, or in part, for the following medical condition, which is the primary reason for home health care (list medical condition): I certify that, based on my findings, the following services are medically necessary home health services: My clinical findings support the need for the above services because: Further, I certify that my clinical findings support that this patient is homebound (i.e. absences from home require considerable and taxing effort and are for medical reasons or jewish services or infrequently or of short duration when for other reasons) because: Certification for Home Health Services: Based on the above findings, I certify that this patient is confined to the home and needs intermittent longterm care, physical therapy and/or speech therapy or continues to need occupational therapy. The patient is under my care, and I have initiated the establishment of the plan of care. This patient will be followed by a physician who will periodically review the plan of care. Total Time Total Time Spent Total Time Spent (In Minutes): 45 Discharge Plan Discharge Items Patient Disposition: Home - Self-Care Reason For Visit: STROKE LIKE SYMPTOMS Discharge Diagnosis: Strokelike symptoms History of depression and anxiety History of GERD Activity: Resume your previous activity Non-emergency contact: Primary Care Provider Call non-emergency contact if: you have any medication questions, your symptoms worsen and your temperature is above 101 Follow-up/Referrals: Awais Major MD [Primary Care Provider] - (Date & Time 05/12/2023 10:40 AM Provider Sonia Sheikh PA-C Department Family Medicine [facility] ) Diet: Heart Healthy Addtl Attending Provider Instructions: Follow-up with your primary care physician within a week time and likely you will need labs CBC/CMP/magnesium/phosphorus. For your strokelike symptoms, you underwent several imagings of Head and neck with no acute findings. Neurology evaluated you, recommended aspirin and sta tin. Follow-up with neurology within 1 to 2 weeks time upon discharge. You will need outpatient Zio patch monitoring, coordinate with your PCP or cardiology office to set up the test. You will need hypercoagulable workup as an outpatient, coordinate with your PCP office to set up the test. For your anxiety and depression, recommend to establish and follow-up with psychiatrist as an outpatient. Coordinated with your PCP office for referral. Take your medications as prescribed. Please make sure that you are able to get your medications today by calling your pharmacy before you leave the hospital so that your treatment continuity is not broken. Pending Studies at Discharge: Yes Stand-Alone Forms: [facility], Smoking Cessation Medications and DC Order Prescriptions: New loratadine [Wal-itin] 10 mg Tablet 10 mg PO QAM Qty: 7 0RF atorvastatin 40 mg Tablet 40 mg PO HS Qty: 30 0RF aspirin 81 mg Tablet,Delayed Release (Dr/Ec) 81 mg PO QAM Qty: 30 0RF lorazepam 0.5 mg tablet 0.5 mg PO DAILY PRN (Reason: anxiety) Qty: 7 0RF Continued citalopram 20 mg tablet 20 mg PO DAILY pantoprazole 40 mg tablet,delayed release (DR/EC) 40 mg PO DAILY Vicdanilo CastroQuil Cold/Flu Liquicap 6.25-15-325 mg Capsule 2 cap PO DIRECTED PRN (Reason: Cold Symptoms) Admission Data Admit Date/Time: 05/03/23 06:56 Attending Provider: Desiree Middleton Admit Provider: Hank Rust Primary Care Provider: Awais Major Other Providers: Hank Rust; Raquel Dickerson; Sb Paul; Raquel Valdez; Christopher Calle; Colin Dsouza; Crescencio Mcdaniel; Enzo Lynn; Josefa Shea; Jc Thomas; Carter Espinoza; Tana Marcos; Larry Ramires; Chiara Abrams; Anjana De Leon; Enzo Chaudhry; Jasper Prather; Laura Abreu; Celena Berry; Kimberley Payne; Gely Rey; Berlin Urbina; Herminio Rebollar; Alexander Olson; Renato Montiel; Daly Montiel; Chester Powers; Rose Sepulveda; Greg Browne; Anam Saavedra; Lang Schofield; Igor Delarosa; Alla Raines E; Armin Vasques A; Ignacia Vasques; Crescencio Kelley; Christine Read; Pilo Garrett.; Rebecca Bernard; Dayan Rich; Christopher Lewis; Monica Chavez A; Sangeeta Blunt A; Brooke Daugherty; Vicki Mcginnis A; Fabien Mcginnis V; Duncan Brown; Celena Sapp; Hunter Rapp; Allison Morris; Fabien Elaine; Juvenal Raines; David Pritchard; Caitlin Fowler; Shefali He; Fabien Deleon; Arnie Moon; Dedra Loera; Bro Newman; Nidhi Schafer; Karo Phoenix; Breezy Lam; Sb Delarosa; Skylar Hansen; Luis Mills; Jeremiah Salgado; Zay Emery; Berlin Escobar Jr; Giana Preciado; Mariza Oshea; Tanvi Mcginnis; Christopher Newman; Abida Crabtree; Renato Denton; Maurilio Chavez I.; Mabel Smith S.; Mariza Pinedo; Steve [place]; Julian Wise; Miguel Angel Griffith; Isac Epps V.; Matty Wilkes; Sarai Donnelly; Anuradha Antonio; Lesvia Garcia; Barbie Ambrocio; Luly Butler; Elizabet Singh; Kala Marquez; Christopher Valenzuela; Armin Carolina
--- NOTE | 2023-05-05 13:11 | Psychiatric Consultation ---
Date of Consultation May 05, 2023 Impression / Recommendations Impression 42 yo male, reports Celexa helpful for non specific depressive symptoms (subclinical on PHQ-9) but ongoing anxiety, particularly in the setting of recent medical. No hx of substance abuse though does drink ETOH. Reviewed with Dr. Middleton as small supply of prn Ativan 0.5 mg q6 prn may be appropriate on discharge. Patient and counseled that he should not drive, operate machinery, or combine with ETOH and that is a controlled substance/not for daily use. Overall, I spent a total of 58 minutes with this case, including review of chart, direct evaluation of the patient, counseling the patient, communication with family, coordination of care with hospitalist service, and documentation. (1) Anxiety: Plan other than prn Ativan above, reviewed that Celexa dosing is on the lower end and would typically defer titration to outpatient basis given his recent procedures/etc. Recommend titration to 40 mg if willing with repeat EKG for QTc or switch to another SSRI such as Lexapro at discretion of outpatient provider. The patient declined referral for outpatient mental health care but could be referred in future through [employer] system if willing. Psych History Identifying Data 42 yo male from [place]. Admit for stroke like symptoms for cardiac work up. Consult by hospitalist service and case discussed briefly with Dr. Middleton prior to consultation. Chief Complaint impression Celexa not helping anxiety History of Present Illness as per liaison interaction last pm: Met with pt. for initial consult. Alert and oriented x4. Pt sitting in bed. Pleasant and cooperative. States having a hx of depression, anxiety, ADHD. States stressors include current hospitalization due to stroke like symptoms and work. States having anxiety and depression for a long time. Denies specific trigger that started his anxiety/depression. Pt states its mostly general. Denies hx of SI/HI/hallucinations/delusions. PHQ-9 score: 8 with #9=0. Pt states he is currently taking Celexa which helps with his depression but not his anxiety. Rates anxiety 10/10. Pt states he would like a medication adjustment. Pt states he has seen a psychiatrist in the past at [facility] in [place]. Pt states he stopped going to [facility] within the last 3yrs because he was paying out of pocket and could no longer afford to continue. Pt states he doesn't think he had [employer] insurance at the time. Pt states he is prescribed Celexa through his pcp, Dr. Major. Pt states past medication trials included generic lorazepam (which helped), clonazepam, and melatonin (which helped his sleep). Pt states having an adequate appetite. States having issues sleeping, especially trying to fall back asleep. denies hx of inpt psych admissions. Denies access to guns/lethal weapons in his home. Pt states he lives with his and step daughter. States his (Karo) is a good support for him. Denies family psych hx. States he uses alcohol monthly or less with approx. 4 drinks per occasion. Denies other substance use. Denies past trauma hx. ROIs signed for his pcp, Dr. Major and , Karo Trinidad. The patient did receive 1 dose of Ativan 0.5 mg with benefit and confirmed he has taken in the past with good effect. He continues to deny SI and has no hx of such, inpatient care or access to lethal weapons. Past med trials as listed above. at bedside for counseling portion and had no concerns about his return home. He denied a family history of psych issues. Allergies Allergy/AdvReac Type Severity Reaction Status Date / Time bacitracin Allergy Intermediate Rash Verified 05/03/23 02:54 [From Neosporin ([id number])] neomycin Allergy Intermediate Rash Verified 05/03/23 02:54 [From Neosporin ([id number])] polymyxin B Allergy Intermediate Rash Verified 05/03/23 02:54 [From Neosporin ([id number])] Home Medications Medication Instructions Recorded Confirmed Type citalopram 20 mg tablet 20 mg PO DAILY 05/03/23 05/03/23 History [id number] 6.25 2 cap PO DIRECTED PRN Cold 05/03/23 05/03/23 History mg-15 mg-325 mg capsule (Vicks Symptoms NyQuil Cold/Flu Liquicap) pantoprazole 40 mg tablet,delayed 40 mg PO DAILY 05/03/23 05/03/23 History release aspirin 81 mg tablet,delayed 81 mg PO QAM #30 tabs 05/05/23 Rx release atorvastatin 40 mg tablet 40 mg PO HS #30 tabs 05/05/23 Rx loratadine 10 mg tablet (Wal-itin) 10 mg PO QAM #7 tabs 05/05/23 Rx lorazepam 0.5 mg tablet 0.5 mg PO DAILY PRN anxiety #7 tabs 05/05/23 Rx Patient History Social History Smoking Status: Never smoker Tobacco Type: Smokeless Tobacco (Dip or Chew) Do You Dip or Chew Tobacco: Yes; Tobacco Cessation Education Requested by Patient: No Hx Alcohol Use: Yes Alcohol type: beer Hx Substance Use: No Preferred Language: Syriac Communication Ability: Effective Roving Teller Required: No Beliefs That Will Affect Care: None Current Living Situation: Spouse and Family Current Living Situation Comment: one daughter at times in college Other Information That Helps Us Care for You: No Feels Safe at Home: Yes Safety Concerns: Feels Safe At This Time Assistive Devices: Contacts and Glasses Physical Exam Psychiatric: Orientation: alert Apperance: appropriately dressed and appropriately groomed Eye Contact: good eye contact Motor Behavior: no abnormal motor movements Speech: normal rate/rhythm/volume of speech Affect: euthymic affect Mood: + anxious mood Thought Process: goal directed thought process Thought Content: reality based without delusions Suicidal Thoughts: denies suicidal thoughts Homicidal Thoughts: denies homicidal thoughts Hallucinations: no auditory hallucinations and no visual hallucinations Cognition: attention grossly intact and language grossly intact Vital Signs (Past 24 Hours): Last Vital Signs Temp 36.9 C 05/05/23 12:10 Pulse 70 05/05/23 12:10 Resp 20 05/05/23 12:10 BP 138/77 05/05/23 12:10 Pulse Ox 97 05/05/23 12:10 O2 Del Method Room Air 05/05/23 12:10 O2 Flow Rate 10 05/05/23 08:15 Review of Systems All systems reviewed & are unremarkable except as noted in HPI & below Results & Data (PSY) Laboratory Results 05/05/23 05/04/23 05/04/23 Range/Units 09:18 17:28 16:47 WBC 4.33 L (4.8-10.8) K/ul RBC 5.10 (4.70-6.10) M/uL Hgb 14.6 (14.0-18.0) g/dl Hct 44.9 (42.0-52.0) % MCV 88.0 (80.0-100.0) fL MCH 28.6 (25.0-34.0) pg MCHC 32.5 (32.0-36.0) g/dL RDW Std Deviation 43.8 (36.4-46.3) fL RDW Coeff of Natasha 13.4 (11.5-14.5) % Plt Count 234 (130-400) K/uL MPV 9.9 (9.4-12.4) fL Immature Gran % (Auto) 0.9 % Neut % (Auto) 52.4 % Lymph % (Auto) 28.9 % Reynolds % (Auto) 15.2 % Eos % (Auto) 1.4 % Baso % (Auto) 1.2 % Neut # (Auto) 2.27 (1.40-6.50) K/uL Lymph # (Auto) 1.25 (1.20-3.40) K/uL Reynolds # (Auto) 0.66 H (0.11-0.59) K/uL Eos # (Auto) 0.06 (0.00-0.50) K/uL Baso # (Auto) 0.05 (0.00-0.20) K/uL Immature Gran # (Auto) 0.04 (0.01-0.20) K/uL Sodium 139 (136-145) mmol/L Potassium 4.5 (3.5-5.1) mmol/L Chloride 103 (98-107) mmol/L Carbon Dioxide 30 (21-32) mmol/L Anion Gap 6 (3-11) BUN 16 (6-23) mg/dl Creatinine 1.00 (0.6-1.4) mg/dl Est Cr Clr Drug Dosing 101.4 ml/min Est GFR ( Amer) 106.4 ml/min Est GFR (Non-Af Amer) 91.8 ml/min BUN/Creatinine Ratio 16.0 (10-20) Glucose 89 (70-99(Fasting)) mg/dl Calcium 9.8 (8.6-10.3) mg/dl Magnesium 1.8 (1.7-2.4) mg/dl TSH 8.481 H (0.300-4.500) uIu/ml Free T4 0.73 (0.61-1.60) ng/dl Urine Opiates Screen Neg (Neg) Ur Methadone, Qual Neg (Neg) Urine Barbiturates Neg (Neg) Ur Phencyclidine (PCP) Neg (Neg) U Amphetamin/Meth Scrn Neg (Neg) MDMA (Ecstasy) Screen Neg (Neg) U Benzodiazepines Scrn Neg (Neg) Ur Cocaine Metabolite Neg (Neg) U Marijuana (THC) Screen Neg (Neg) Lyme Disease IgG Ab Negative (Negative) Lyme IgG (Western Blot) Pending Lyme IgG 18 kDa Band Pending Lyme IgG 23 kDa Band Pending Lyme IgG 28 kDa Band Pending Lyme IgG 30 kDa Band Pending Lyme IgG 39 kDa Band Pending Lyme IgG 41 kDa Band Pending Lyme IgG 45 kDa Band Pending Lyme IgG 58 kDa Band Pending Lyme IgG 66 kDa Band Pending Lyme IgG 93 kDa Band Pending Lyme IgM Ab (WB) Pending Lyme Disease IgM Ab Equivocal A (Negative) Lyme IgM 23 kDa Band Pending Lyme IgM 39 kDa Band Pending Lyme IgM 41 kDa Band Pending Medications Administered Aspirin (Aspirin 81 Mg Ectab) 81 mg PO [facility] Stop: 06/03/23 14:59 Last Admin: 05/05/23 09:12 Dose: 81 mg Documented By: Admin: 05/04/23 17:32 Dose: 81 mg Documented By: BEV Atorvastatin Calcium (Atorvastatin 40 Mg Tab) 40 mg PO [facility] Stop: 06/03/23 20:59 Last Admin: 05/04/23 21:01 Dose: 40 mg Documented By: MONTSERRAT Citalopram Hydrobromide (Citalopram 20 Mg Tab) 20 mg PO DAILY [facility] Stop: 06/02/23 09:42 Last Admin: 05/05/23 09:13 Dose: 20 mg Documented By: Admin: 05/04/23 07:39 Dose: 20 mg Documented By: Admin: 05/03/23 15:46 Dose: 20 mg Documented By: KENNETH Hydromorphone HCl (Hydromorphone Inj 0.5 Mg/0.5 Ml Syr) 0.5 mg IV Q3H PRN PRN Reason: Severe Pain (Scale 7, 8, 9,10) Stop: 05/17/23 08:41 Last Admin: 05/04/23 21:02 Dose: 0.5 mg Documented By: Admin: 05/04/23 15:13 Dose: 0.5 mg Documented By: Admin: 05/04/23 07:42 Dose: 0.5 mg Documented By: Admin: 05/03/23 22:34 Dose: 0.5 mg Documented By: Admin: 05/03/23 12:34 Dose: 0.5 mg Documented By: KENNETH Acetaminophen (Ofirmev) 1,000 mg in 100 mls @ 400 mls/hr IV Q8H PRN PRN Reason: Pain or Fever Stop: 05/06/23 09:42 Last Infusion: 05/03/23 20:30 Dose: Infused Documented By: Admin: 05/03/23 20:15 Dose: 400 mls/hr Documented By: MACHO Loratadine (Loratadine 10 Mg Tab) 10 mg PO QAM [facility] Stop: 06/04/23 08:59 Last Admin: 05/05/23 09:12 Dose: 10 mg Documented By: BEV Pantoprazole Sodium (Pantoprazole 40 Mg Tab) 40 mg PO DAILY [facility] Stop: 06/02/23 09:42 Last Admin: 05/05/23 09:13 Dose: 40 mg Documented By: Admin: 05/04/23 07:39 Dose: 40 mg Documented By: Admin: 05/03/23 14:15 Dose: 40 mg Documented By: KENNETH Coding Level of Care Code 15108 [facility] Intl Hosp Care Lvl 2 Diagnoses Anxiety F41.9
[2023-05-05] MEDS ORDERED: STROKE PATIENT DISCHARGE STA (16:01)
[2023-05-05] MEDS: HYDROmorphone INJ 0.5 MG/0.5 ML SYR IV PRN (16:06)
[2023-05-07 21:58] LABS: 18KDIGG Band NON-REACTIVE; 23KDIGG Band NON-REACTIVE; 23KDIGM Band NON-REACTIVE; 28KDIGG Band NON-REACTIVE; 30KDIGG Band NON-REACTIVE; 39KDIGG Band NON-REACTIVE; 39KDIGM Band NON-REACTIVE; 41KDIGG Band REACTIVE; 41KDIGM Band NON-REACTIVE; 45KDIGG Band NON-REACTIVE; 58KDIGG Band REACTIVE; 66KDIGG Band NON-REACTIVE; 93KDIGG Band REACTIVE; Lyme Antibodies, WB IgG NEGATIVE (NEGATIVE); Lyme Antibodies, WB IgM NEGATIVE (NEGATIVE)
== END 2023-05-05 17:19 | disposition home or self-care (01) | DRG 57 ==
LOC: ED 02:15 → SUATTDRO 06:56 → 2S 06:56 → INTOOBSV 06:56 → 2S 09:08

== ENCOUNTER 2023-11-22 13:54 | Inpatient (IN) ==
[2023-11-22] MEDS: OPTIRAY 320 125ml IV ONE (14:02)
[2023-11-22] MEDS ORDERED: No Aspirin within 24hrs of THROMBOLYTIC-Stroke PO SCH (14:15)
--- NOTE | 2023-11-22 14:15 | CT Scan Report ---
CT ANGIOGRAM OF THE NECK CLINICAL HISTORY: Neurological deficit. Stroke like symptoms. COMPARISON STUDY: CT angiogram of the neck dated 05/03/2023. TECHNIQUE: Following the IV administration of 119 of Optiray 320, CT angiogram of the neck was perfor med from the aortic arch to the skull base. Images are reviewed in the axial, sagittal, and coronal p lanes. 3-D MIPS images are created and assessed. IV contrast was administered without complication. A ll measurements were calculated based on NASCET criteria. A dose lowering technique was utilized adh ering to the principles of ALARA. CT DOSE: 1368.74 mGy.cm FINDINGS: Thoracic aorta: Visualized portions of the thoracic aorta are normal in caliber. The aortic arch demo nstrates standard 3-vessel anatomy. Right carotid arterial system: The right common carotid artery is widely patent, as are the right int ernal and external carotid arteries. Left carotid arterial system: The left common carotid artery is widely patent, as are the left internet database specialist al and external carotid arteries. Vertebral arteries: The vertebral arteries are widely patent bilaterally and codominant. Subclavian arteries: Widely patent bilaterally. Jugular veins: Patent bilaterally. Brain parenchyma: The visualized brain parenchyma the skull base is within normal limits. Lung apices: Partially visualized upper lobe lung parenchyma appears clear. Soft tissues: The visualized pharyngeal soft tissues are normal in appearance noting angiographic pha se technique. The oropharyngeal airway appears widely patent. The salivary and thyroid glands are nor mal in appearance. No cervical lymphadenopathy is seen. Skeletal structures: The visualized calvarium at the skull base appears intact. The imaged cervical s pine is maintained noting mild spondylosis. Sinuses and mastoids: There is mild mucosal thickening with an air-fluid level seen in the right maxi llary antrum. Mild mucosal thickening is also noted in the left maxillary sinus. The mastoid air cell s are well pneumatized. IMPRESSION: Unremarkable CT angiogram of the neck. ACT 112: Negative or not required by law. Electronically signed by: Bro Chance M.D. 11/22/2023 2:13 PM
[2023-11-22 14:16] LABS: Basophils # (auto) 0.05 K/uL (0.00-0.20); Eosinophils # (auto) 0.07 K/uL (0.00-0.50); Eosinophils % (auto) 1.3 %; Hematocrit (blood only) 44.5 % (42.0-52.0); Hemoglobin 14.5 g/dl (14.0-18.0); Immature Granulocytes # (auto) 0.02 K/uL (0.01-0.20); Immature Granulocytes % (auto) 0.4 %; Lymphocytes # (auto) 1.46 K/uL (1.20-3.40); Lymphocytes % (auto) 27.8 %; Mean Corpuscular Hemoglobin 28.2 pg (25.0-34.0); Mean Corpuscular Hgb Conc 32.6 g/dL (32.0-36.0); Mean Corpuscular Volume 86.4 fL (80.0-100.0); Mean Platelet Volume 9.9 fL (9.4-12.4); Monocytes # (auto) 0.71 K/uL (0.11-0.59); Monocytes % (auto) 13.5 %; Neutrophils # (auto) 2.95 K/uL (1.40-6.50); Platelet Count 297 K/uL (130-400); RDW Coefficient of Variation 13.6 % (11.5-14.5); RDW Standard Deviation 43.2 fL (36.4-46.3); Red Blood Count 5.15 M/uL (4.70-6.10); White Blood Count 5.26 K/ul (4.8-10.8)
--- NOTE | 2023-11-22 14:17 | CT Scan Report ---
CT angio head w con, CT head/brain wo con CLINICAL HISTORY: neuro deficit, acute stroke suspected TECHNIQUE: Contiguous axial CT images of the head were acquired from the base of the skull to the mir marisela without intravenous contrast administration. CT angiography of the head was performed following intravenous administration of iodinated contrast. Coronal and sagittal MIPS were obtained from the ax ial data set and were submitted for review. Automated dose lowering techniques and/or adjustment acc ording to patient size were utilized for this examination. All measurements were calculated based on NASCET criteria. Comparison: None available at the time of this dictation. FINDINGS: CT head: There is no acute intracranial hemorrhage or evidence of acute territorial infarction. No sh ift of the midline structures, mass effect, or extra-axial abnormalities are shown. CTA Head: The anterior and posterior cerebral circulations are patent. No hemodynamically significan t stenosis, aneurysm, dissection, or arteriovenous malformation is shown. IMPRESSION: 1. No acute intracranial hemorrhage, evidence of acute territorial infarction, or other acute intrac ranial disease process. 2. No occlusion, hemodynamically significant stenosis, aneurysm, dissection, or arteriovenous malfor mation in the major intracranial arteries. Assessment of stenosis of the internal carotid arteries is based on NASCET criteria. ACT 112: Negative or not required by law. Electronically signed by: David Coelho M.D. 11/22/2023 2:16 PM
[2023-11-22 14:28] LABS: INR 0.9 (0.9-1.1); Partial Thromboplastin Time 27 Seconds (21-31)
[2023-11-22] MEDS: LORazepam 1 MG/1 ML SYR ED Inj Use IV STA (14:43)
[2023-11-22 14:44] LABS: Albumin Globulin Ratio 1.4 (0.9-2); Albumin Level 4.6 gm/dl (3.4-5.0); BUN Creatinine Ratio 16.4 (10-20); Bilirubin,Total 0.6 mg/dl (0.2-1.0); Calcium 10.1 mg/dl (8.6-10.3); Creatinine Clr Calc Pharmacy 93.9 ml/min; Est GFR (African American) 94.1 ml/min; Est GFR (Non-African American) 81.2 ml/min; Globulin 3.3 gm/dl (2.5-4.0); Total Protein 7.9 gm/dl (6.0-8.3)
[2023-11-22 14:46] LABS: Troponin I High Sensitivity 3.5 pg/ml (0-20)
--- NOTE | 2023-11-22 14:46 | Emergency Department Note ---
Impression & Plan Stroke-like symptoms ED Provider Note NAME: WILLIAM LUKE Jr AGE: 43 SEX: M : 1980 ARRIVES VIA: Ambulance INFORMANT: Patient, EMS, the patient's significant other ED PROVIDER(S): Fish Paige DO CHIEF COMPLAINT: strokelike symptoms HPI: The patient is a 43-year-old male who presented to the emergency department by ambulance for strokelike symptoms. The patient was made a stroke alert prior to arrival. According to the patient as well as prehospital the patient started having a right-sided headache at approximately 130. He started having left upper extremity weakness. He has a history of a stroke in the past with similar symptoms so he called 911. According to the prehospital personnel the patient walked out to the ambulance but then prior to arrival started having acute left leg weakness as well. The patient also complained of headache. He continues to complain of a right-sided headache. There is no reported nausea or vomiting. The patient was unable to speak when he arrived at the emergency department. Additional history was obtained from the patient's significant other. He had a similar episode in April of last year. ROS: See above HPI for pertinent positives & negatives. A total of 10 systems reviewed and were otherwise negative. PAST MEDICAL HISTORY: See Below PAST SURGICAL HISTORY: See Below FAMILY HISTORY: See Below SOCIAL HISTORY: See Below HOME MEDICATIONS: See Below ALLERGIES: See Below VITALS: See Below PHYSICAL EXAMINATION: GENERAL: The patient is awake to verbal commands. Not answer questions appears aphasic at this time. EYES: The conjunctivae are clear. The pupils are round and reactive. EARS, NOSE, MOUTH AND THROAT: The nose is without any evidence of any deformity. NECK: The neck is nontender and supple. RESPIRATORY: Normal respiratory effort is noted there is no evidence of wheezing rhonchi or rales CARDIOVASCULAR: Regular rate and rhythm noted there no murmurs rubs or gallops normal S1 normal S2. GASTROINTESTINAL: The abdomen is soft. Abdomen is nontender. MUSCULOSKELETAL/EXTREMITIES: There is no evidence of gross deformity full range of motion is noted in the hips and shoulders. SKIN: There is no obvious evidence of any rash. There are no petechiae, pallor or cyanosis noted. NEUROLOGIC: The patient is awake and alert. He is able to look around the room. There is left upper and left lower extremity weakness. The patient is unable to look to the left and will not speak at this time MEDICAL DECISION MAKING: The patient is a 43-year-old male who presented to the emergency department with acute strokelike symptoms. The patient was made a stroke alert prior to arrival. He did have very significant symptoms. Initial CAT scan showed no acute abnormality so the patient was considered a TNK candidate. I discussed the patient's condition with the telestroke neurologist. The patient was evaluated by the telestroke neurologist. The patient started having some intermittent symptoms that could be consistent with another cause other than an ischemic stroke such as conversion reaction or possibly seizure. The patient was treated with Ativan and then Depakote. The patient was reevaluated multiple times. Ultimately the patient was found to have an NIH score of 0. TNK was not given because of the confusing presentation. The patient's significant other did give part of the history as well. Given the patient's initial presentation I did discuss patient's case with the on-call [facility] hospitalist. They have agreed to evaluate the patient in the emergency department for further management and disposition. Triage Nursing notes reviewed. Prior medical records reviewed Vital Signs: reviewed and remarkable for hypertension. Differential diagnosis: Infection, dehydration, metabolic abnormality, hypo/hyperglycemia, electrolyte disturbance, anemia, hypoxia, cardiac sources, intracerebral event, toxicologic, neurologic, as well as other pathologies. ER treatment provided: See below Diagnostics interpreted by me: ECG: EKG was obtained in the emergency department. My interpretation is normal sinus rhythm at [address] segment abnormalities are noted with T wave versions in the inferior leads. This was compared to a tracing from May 03, 2023. No changes were noted. Cardiac Monitoring: An order was placed for continuous cardiac monitoring. The monitor shows a rate of 89 bpm with sinus rhythm. Laboratory studies: As stated above and show below. Imaging studies: See below. Radiographic imaging was reviewed by myself Consultation(s): I discussed this case with Dr. Harden Who is on for the telestroke service with [facility]. They recommended that we use maintenance Depakote every 8 hours and obtain a stat EEG in the a.m. They also recommended further neuroimaging such as MRI. They also recommended an evaluation by psychiatry and neurology if possible. I discussed this case with the [facility] hospitalist. They have agreed to evaluate the patient in the emergency department for further management and disposition. ED COURSE: Procedures: none Critical Care: I have personally spent greater than 45 minutes of critical care time in the direct management of this patient. This includes bedside care, interpretation of diagnostic studies, and testing, discussion with consultants, patient, and family members, and other required patient management activities. This 45 minutes is in excess of all separately billable procedures. 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 Beliefs That Will Affect Care: None Current Living Situation: Spouse and Family Current Living Situation Comment: one daughter at times in college Feels Safe at Home: Yes Assistive Devices: Contacts and Glasses Allergies Allergies Allergy/AdvReac Type Severity Reaction Status Date / Time bacitracin Allergy Intermediate Rash Verified 11/22/23 15:34 [From Neosporin ([id number])] neomycin Allergy Intermediate Rash Verified 11/22/23 15:34 [From Neosporin ([id number])] polymyxin B Allergy Intermediate Rash Verified 11/22/23 15:34 [From Neosporin ([id number])] Home Meds Home Medications Medication Instructions Recorded Confirmed pantoprazole 40 mg tablet,delayed 40 mg PO DAILY 05/03/23 11/22/23 release acetaminophen 500 mg tablet 500 mg PO Q6H PRN Pain/Fever 11/22/23 11/22/23 trazodone 50 mg tablet 50 mg PO HS PRN Sleep 11/22/23 11/22/23 Previous Rx's Medication Instructions Recorded aspirin 81 mg tablet,delayed 81 mg PO QAM #30 tabs 05/05/23 release loratadine 10 mg tablet (Wal-itin) 10 mg PO QAM #7 tabs 05/05/23 Results & Data (ED) Vital Signs Vital Signs - 24 hr 11/22/23 14:05 Pulse Rate 89 Pulse Rhythm Regular Pulse Strength Normal Respiratory Rate 24 Respiratory Effort / Characteristics Non-Labored Respiratory Depth Normal Respiratory Pattern Regular Blood Pressure 156/98 H Blood Pressure Mean 117 Blood Pressure Position Sitting Pulse Oximetry 99 Oxygen Delivery Method Nasal Cannula Oxygen Flow Rate 2 Sepsis Recent Fever Within 48 Hours No Sepsis New/Unexplained Change in Mental Status N/A Sepsis Action Taken by Nursing No Action Required Home Medications Current Medication List: was personally reviewed by me Laboratory Data Attestation: I reviewed the patient's lab results. 11/22/23 14:04 11/22/23 14:04 Lab Results 11/22/23 11/22/23 11/22/23 Range/Units 14:04 14:12 14:18 WBC 5.26 (4.8-10.8) K/ul RBC 5.15 (4.70-6.10) M/uL Hgb 14.5 (14.0-18.0) g/dl Hct 44.5 (42.0-52.0) % MCV 86.4 (80.0-100.0) fL MCH 28.2 (25.0-34.0) pg MCHC 32.6 (32.0-36.0) g/dL RDW Std Deviation 43.2 (36.4-46.3) fL RDW Coeff of Natasha 13.6 (11.5-14.5) % Plt Count 297 (130-400) K/uL MPV 9.9 (9.4-12.4) fL Immature Gran % (Auto) 0.4 % Neut % (Auto) 56.0 % Lymph % (Auto) 27.8 % [place] % (Auto) 13.5 % Eos % (Auto) 1.3 % Baso % (Auto) 1.0 % Neut # (Auto) 2.95 (1.40-6.50) K/uL Lymph # (Auto) 1.46 (1.20-3.40) K/uL [place] # (Auto) 0.71 H (0.11-0.59) K/uL Eos # (Auto) 0.07 (0.00-0.50) K/uL Baso # (Auto) 0.05 (0.00-0.20) K/uL Immature Gran # (Auto) 0.02 (0.01-0.20) K/uL PT 10.0 (9.0-12.0) Seconds INR 0.9 (0.9-1.1) APTT 27 (21-31) Seconds PTT Ratio 1.0 Sodium 139 (136-145) mmol/L Potassium 4.0 (3.5-5.1) mmol/L Chloride 102 (98-107) mmol/L Carbon Dioxide 29 (21-32) mmol/L Anion Gap 8 (3-11) BUN 18 (6-23) mg/dl Creatinine 1.10 (0.6-1.4) mg/dl Est Cr Clr Drug Dosing 93.9 ml/min Est GFR ( Amer) 94.1 ml/min Est GFR (Non-Af Amer) 81.2 ml/min BUN/Creatinine Ratio 16.4 (10-20) Glucose 122 H (70-99(Fasting)) mg/dl POC Glucose 93 (70-99) mg/dl Calcium 10.1 (8.6-10.3) mg/dl Magnesium 2.0 (1.7-2.4) mg/dl Total Bilirubin 0.6 (0.2-1.0) mg/dl AST 25 (13-39) U/L ALT 19 (7-52) U/L Alkaline Phosphatase 80 (34-104) U/L Troponin I High Sens 3.5 (0-20) pg/ml Total Protein 7.9 (6.0-8.3) gm/dl Albumin 4.6 (3.4-5.0) gm/dl Globulin 3.3 (2.5-4.0) gm/dl Albumin/Globulin Ratio 1.4 (0.9-2) Ethyl Alcohol mg/dL < 10.0 (<10.0) mg/dl Administered Medications Valproic Acid 500 mg/ Dextrose 55 mls @ 55 mls/hr IV ONE STA Stop: 11/22/23 16:14 Last Admin: 11/22/23 15:37 Dose: 55 mls/hr Documented By: MARIA ISABEL Discontinued Medications Ioversol (Optiray 320 125ml) 119 ml IV ONCE ONE Stop: 11/22/23 14:03 Last Admin: 11/22/23 14:02 Dose: 119 ml Documented By: ALEXIA Lorazepam (Lorazepam 1 Mg/1 Ml Syr Ed Inj Use) 2 mg IV ONE STA Stop: 11/22/23 14:32 Last Admin: 11/22/23 14:43 Dose: 2 mg Documented By: JOE Imaging Data Attestation: I personally reviewed and interpreted this imaging study as follows: My Impression: 1 view chest x-ray was obtained in the emergency department. My interpretation is no free air or definite infiltrate, final report below. CT of the brain was obtained in the emergency department. My interpretation is no intracranial hemorrhage or mass effect, final report below. Radiologist's Impression: Chest X-Ray 11/22/23 13:47 XR chest 1V portable CLINICAL HISTORY: neuro deficit, acute stroke suspected TECHNIQUE: Single frontal radiograph of the chest was obtained. Comparison: None available at the time of this dictation. FINDINGS: No lines and tubes are seen. The cardiomediastinal silhouette is normal. The lungs are clear. No evidence of pleural effusion or pneumothorax. IMPRESSION: No acute chest disease. ACT 112: Negative or not required by law. Electronically signed by: David Coelho M.D. 11/22/2023 3:[address] 11/22/23 13:47 CT angio head w con, CT head/brain wo con CLINICAL HISTORY: neuro deficit, acute stroke suspected TECHNIQUE: Contiguous axial CT images of the head were acquired from the base of the skull to the vertex without intravenous contrast administration. CT angiography of the head was performed following intravenous administration of iodinated contrast. Coronal and sagittal MIPS were obtained from the axial data set and were submitted for review. Automated dose lowering techniques and/or adjustment according to patient size were utilized for this examination. All measurements were calculated based on NASCET criteria. Comparison: None available at the time of this dictation. FINDINGS: CT head: There is no acute intracranial hemorrhage or evidence of acute territorial infarction. No shift of the midline structures, mass effect, or extra-axial abnormalities are shown. CTA Head: The anterior and posterior cerebral circulations are patent. No hemodynamically significant stenosis, aneurysm, dissection, or arteriovenous malformation is shown. IMPRESSION: 1. No acute intracranial hemorrhage, evidence of acute territorial infarction, or other acute intracranial disease process. 2. No occlusion, hemodynamically significant stenosis, aneurysm, dissection, or arteriovenous malformation in the major intracranial arteries. Assessment of stenosis of the internal carotid arteries is based on NASCET criteria. ACT 112: Negative or not required by law. Electronically signed by: David Coelho M.D. 11/22/2023 2:16 PM Head CTA 11/22/23 13:47 CT angio head w con, CT head/brain wo con CLINICAL HISTORY: neuro deficit, acute stroke suspected TECHNIQUE: Contiguous axial CT images of the head were acquired from the base of the skull to the vertex without intravenous contrast administration. CT angiography of the head was performed following intravenous administration of iodinated contrast. Coronal and sagittal MIPS were obtained from the axial data set and were submitted for review. Automated dose lowering techniques and/or adjustment according to patient size were utilized for this examination. All measurements were calculated based on NASCET criteria. Comparison: None available at the time of this dictation. FINDINGS: CT head: There is no acute intracranial hemorrhage or evidence of acute territorial infarction. No shift of the midline structures, mass effect, or extra-axial abnormalities are shown. CTA Head: The anterior and posterior cerebral circulations are patent. No hemodynamically significant stenosis, aneurysm, dissection, or arteriovenous malformation is shown. IMPRESSION: 1. No acute intracranial hemorrhage, evidence of acute territorial infarction, or other acute intracranial disease process. 2. No occlusion, hemodynamically significant stenosis, aneurysm, dissection, or arteriovenous malformation in the major intracranial arteries. Assessment of stenosis of the internal carotid arteries is based on NASCET criteria. ACT 112: Negative or not required by law. Electronically signed by: David Coelho M.D. 11/22/2023 2:16 PM Neck CTA 11/22/23 13:47 CT ANGIOGRAM OF THE NECK CLINICAL HISTORY: Neurological deficit. Stroke like symptoms. COMPARISON STUDY: CT angiogram of the neck dated 05/03/2023. TECHNIQUE: Following the IV administration of 119 of Optiray 320, CT angiogram of the neck was performed from the aortic arch to the skull base. Images are reviewed in the axial, sagittal, and coronal planes. 3-D MIPS images are created and assessed. IV contrast was administered without complication. All measurements were calculated based on NASCET criteria. A dose lowering technique was utilized adhering to the principles of ALARA. CT DOSE: 1368.74 mGy.cm FINDINGS: Thoracic aorta: Visualized portions of the thoracic aorta are normal in caliber. The aortic arch demonstrates standard 3-vessel anatomy. Right carotid arterial system: The right common carotid artery is widely patent, as are the right internal and external carotid arteries. Left carotid arterial system: The left common carotid artery is widely patent, as are the left internal and external carotid arteries. Vertebral arteries: The vertebral arteries are widely patent bilaterally and codominant. Subclavian arteries: Widely patent bilaterally. Jugular veins: Patent bilaterally. Brain parenchyma: The visualized brain parenchyma the skull base is within normal limits. Lung apices: Partially visualized upper lobe lung parenchyma appears clear. Soft tissues: The visualized pharyngeal soft tissues are normal in appearance noting angiographic phase technique. The oropharyngeal airway appears widely patent. The salivary and thyroid glands are normal in appearance. No cervical lymphadenopathy is seen. Skeletal structures: The visualized calvarium at the skull base appears intact. The imaged cervical spine is maintained noting mild spondylosis. Sinuses and mastoids: There is mild mucosal thickening with an air-fluid level seen in the right maxillary antrum. Mild mucosal thickening is also noted in the left maxillary sinus. The mastoid air cells are well pneumatized. IMPRESSION: Unremarkable CT angiogram of the neck. ACT 112: Negative or not required by law. Electronically signed by: Bro Chance M.D. 11/22/2023 2:13 PM Discharge Plan Visit Data Chief Complaint: Stroke/CVA Symptoms Stated Complaint: STROKE ED Provider: Fish Paige Discharge Problem: Stroke-like symptoms Patient Disposition: Being Evaluated by Hospitalist Forms Stand Alone Forms: My [facility] Prescriptions Prescriptions: No Action pantoprazole 40 mg tablet,delayed release (DR/EC) 40 mg PO DAILY loratadine [Wal-itin] 10 mg Tablet 10 mg PO QAM Qty: 7 0RF aspirin 81 mg Tablet,Delayed Release (Dr/Ec) 81 mg PO QAM Qty: 30 0RF trazodone 50 mg tablet 50 mg PO HS PRN (Reason: Sleep) acetaminophen [Tylenol Ex Str Rapid Release] 500 mg Tablet 500 mg PO Q6H PRN (Reason: Pain/Fever) Referrals Referrals: Awais Major MD [Primary Care Provider] -
[2023-11-22] MEDS: VALPROATE SOD 500 MG in DEXTROSE 5% 50 ML IV STA (15:37)
--- NOTE | 2023-11-22 15:43 | XRay Report ---
XR chest 1V portable CLINICAL HISTORY: neuro deficit, acute stroke suspected TECHNIQUE: Single frontal radiograph of the chest was obtained. Comparison: None available at the time of this dictation. FINDINGS: No lines and tubes are seen. The cardiomediastinal silhouette is normal. The lungs are clear. No evid ence of pleural effusion or pneumothorax. IMPRESSION: No acute chest disease. ACT 112: Negative or not required by law. Electronically signed by: David Coelho M.D. 11/22/2023 3:42 PM
[2023-11-22] MEDS: SODIUM CHLORIDE 0.9% 10ML FLUSH IV STA (15:58)
[2023-11-22] MEDS: LORazepam 1 MG/1 ML SYR ED Inj Use ONE (15:58)
[2023-11-22] MEDS: STAT IV/IM STA (15:59)
[2023-11-22] MEDS: TENECTEPLASE 19 MG in SYRINGE 0 ML IV ONE (15:59)
--- NOTE | 2023-11-22 16:00 | History & Physical Report ---
Date of Service November 22, 2023 Assessment & Plan (1) Stroke-like symptoms: Plan: This is a 43 y/o male with history of TIA in Apr 2023, GERD, anxiety, panic disorder, ADHD, and seasonal allergies who presented to the ED today as a stroke alert. Because symptoms started to improve after arrival in the ED, pt was not given thrombolytics. There was a question of a component of anxiety contributing to the patient was given Ativan with significant improvement of neurologic symptoms after this was given. Initial imaging negative. Pt nearly back to baseline on evaluation. Differential includes TIA, seizure, or complex migraine. Also seems to have a component of anxiety that is not well-controlled. - Admit to PCU, neuro checks per protocol - Continue aspirin and statin, will add Plavix for now - Consult neurology for additional input - Labs in the AM - CBC, BMP, TSH, lipid panel, A1c, homocysteine - EEG pending neuro evaluation - Trial of prn Toradol for continued headache (?migraine) (2) Anxiety: Plan: Chronic but not well-controlled Pt agreeable to seeing psychiatry during this admission - will likely need outpatient f/u as well (3) GERD (gastroesophageal reflux disease): Plan: Chronic, stable Continue PPI (4) Smokeless tobacco use: Plan: Pt agreeable to trying a nicotine patch while admitted Recommend cessation Plan Pt seen and reviewed with collaborating physician, Dr. Brady. Plan of care discussed and as outlined above. Code status: Full code DVT Prophylaxis: Lovenox Admit to PCU Malcolm Suh PA-C History of Present Illness Chief Complaint: stroke-like symptoms Primary Care Provider: Awais Major MD This is a 43 y/o male with history of TIA in Apr 2023, GERD, anxiety, panic disorder, ADHD, and seasonal allergies who presented to the ED today as a stroke alert. 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 This was followed by the onset of left facial and left neck numbness. He reports this felt similar to prior TIA so he told his co-workers to call EMS. When EMS arrived, he was able to walk out to the ambulance, but during transport, he reportedly developed decreased responsiveness, aphasia, and inability to move his left side. On evaluation in the ED, he seemed to start to improve so thrombolytics were held. He was given a dose of Ativan in the ED, after which he had significant improvement of the neurologic symptoms although the headache persists. When his initially arrived in the ED, pt was not talking and seemed slow to respond but this has improved after the Ativan. Ángel zamarripa reports increased life stressors and ongoing issues with anxiety that has been somewhat difficult to get until control. He reports that he is not taking anything for this at present but is interested in talking to someone about it. He notes a recent illness with URI symptoms for the last few days. Subjective fever, cough productive of yellow mucus. had similar URI symptoms first. Allergies Allergy/AdvReac Type Severity Reaction Status Date / Time bacitracin Allergy Intermediate Rash Verified 11/22/23 15:34 [From Neosporin ([id number])] neomycin Allergy Intermediate Rash Verified 11/22/23 15:34 [From Neosporin ([id number])] polymyxin B Allergy Intermediate Rash Verified 11/22/23 15:34 [From Neosporin ([id number])] Home Medications Medication Instructions Recorded Confirmed Type pantoprazole 40 mg tablet,delayed 40 mg PO DAILY 05/03/23 11/22/23 History release aspirin 81 mg tablet,delayed 81 mg PO QAM #30 tabs 05/05/23 11/22/23 Rx release loratadine 10 mg tablet (Wal-itin) 10 mg PO QAM #7 tabs 05/05/23 11/22/23 Rx acetaminophen 500 mg tablet 500 mg PO Q6H PRN Pain/Fever 11/22/23 11/22/23 History trazodone 50 mg tablet 50 mg PO HS PRN Sleep 11/22/23 11/22/23 History Past Med/Surg History Problem List GERD (gastroesophageal reflux disease) Stroke-like symptoms (Acute) Anxiety Smokeless tobacco use Medical History (Updated 11/22/23 @ 18:40 by Dominga Suh PA-C) Paranoid disorder ADHD Subclinical hypothyroidism Geovanni's thyroiditis Abnormal echocardiogram TIA (transient ischemic attack) Surgical History (Updated 11/22/23 @ 18:35 by Dominga Suh PA-C) History of repaired hypospadias Social History Smoking Status: Never smoker Tobacco Type: Smokeless Tobacco (Dip or Chew) Do You Dip or Chew Tobacco: Yes; Hx Alcohol Use: Yes Alcohol type: beer Hx Substance Use: No Preferred Language: Nepalese Communication Ability: Effective Car Pick Up Driver Required: No Beliefs That Will Affect Care: None Current Living Situation: Spouse and Family Current Living Situation Comment: one daughter at times in college Feels Safe at Home: Yes Assistive Devices: Contacts and Glasses Review of Systems Review of Systems: All systems reviewed & are unremarkable except as noted in Subjective Physical Exam Physical Exam: Please see physician note for details of the physical examination. Results & Data Results & Data Vital Signs (Past 12 Hours) Vital Signs Pulse Resp BP Pulse Ox O2 Del Method O2 Flow Rate 11/22/23 14:32 Room Air 11/22/23 14:05 89 24 156/98 H 99 Nasal Cannula 2 Laboratory Results Lab Results 11/22/23 11/22/23 11/22/23 Range/Units 14:04 14:12 14:18 WBC 5.26 (4.8-10.8) K/ul RBC 5.15 (4.70-6.10) M/uL Hgb 14.5 (14.0-18.0) g/dl Hct 44.5 (42.0-52.0) % MCV 86.4 (80.0-100.0) fL MCH 28.2 (25.0-34.0) pg MCHC 32.6 (32.0-36.0) g/dL RDW Std Deviation 43.2 (36.4-46.3) fL RDW Coeff of Natasha 13.6 (11.5-14.5) % Plt Count 297 (130-400) K/uL MPV 9.9 (9.4-12.4) fL Immature Gran % (Auto) 0.4 % Neut % (Auto) 56.0 % Lymph % (Auto) 27.8 % [place] % (Auto) 13.5 % Eos % (Auto) 1.3 % Baso % (Auto) 1.0 % Neut # (Auto) 2.95 (1.40-6.50) K/uL Lymph # (Auto) 1.46 (1.20-3.40) K/uL [place] # (Auto) 0.71 H (0.11-0.59) K/uL Eos # (Auto) 0.07 (0.00-0.50) K/uL Baso # (Auto) 0.05 (0.00-0.20) K/uL Immature Gran # (Auto) 0.02 (0.01-0.20) K/uL PT 10.0 (9.0-12.0) Seconds INR 0.9 (0.9-1.1) APTT 27 (21-31) Seconds PTT Ratio 1.0 Sodium 139 (136-145) mmol/L Potassium 4.0 (3.5-5.1) mmol/L Chloride 102 (98-107) mmol/L Carbon Dioxide 29 (21-32) mmol/L Anion Gap 8 (3-11) BUN 18 (6-23) mg/dl Creatinine 1.10 (0.6-1.4) mg/dl Est Cr Clr Drug Dosing 93.9 ml/min Est GFR ( Amer) 94.1 ml/min Est GFR (Non-Af Amer) 81.2 ml/min BUN/Creatinine Ratio 16.4 (10-20) Glucose 122 H (70-99(Fasting)) mg/dl POC Glucose 93 (70-99) mg/dl Calcium 10.1 (8.6-10.3) mg/dl Magnesium 2.0 (1.7-2.4) mg/dl Total Bilirubin 0.6 (0.2-1.0) mg/dl AST 25 (13-39) U/L ALT 19 (7-52) U/L Alkaline Phosphatase 80 (34-104) U/L Troponin I High Sens 3.5 (0-20) pg/ml Total Protein 7.9 (6.0-8.3) gm/dl Albumin 4.6 (3.4-5.0) gm/dl Globulin 3.3 (2.5-4.0) gm/dl Albumin/Globulin Ratio 1.4 (0.9-2) Ethyl Alcohol mg/dL < 10.0 (<10.0) mg/dl Diagnostic Findings Chest X-Ray 11/22/23 13:47 XR chest 1V portable CLINICAL HISTORY: neuro deficit, acute stroke suspected TECHNIQUE: Single frontal radiograph of the chest was obtained. Comparison: None available at the time of this dictation. FINDINGS: No lines and tubes are seen. The cardiomediastinal silhouette is normal. The l ungs are clear. No evidence of pleural effusion or pneumothorax. IMPRESSION: No acute chest disease. ACT 112: Negative or not required by law. Electronically signed by: David Coelho M.D. 11/22/2023 3:[address] 11/22/23 13:47 CT angio head w con, CT head/brain wo con CLINICAL HISTORY: neuro deficit, acute stroke suspected TECHNIQUE: Contiguous axial CT images of the head were acquired from the base of the skull to the vertex without intravenous contrast administration. CT angiography of the head was performed following intravenous administration of iodinated contrast. Coronal and sagittal MIPS were obtained from the axial data set and were submitted for review. Automated dose lowering techniques and/or adjustment according to patient size were utilized for this examination. All measurements were calculated based on NASCET criteria. Comparison: None available at the time of this dictation. FINDINGS: CT head: There is no acute intracranial hemorrhage or evidence of acute territorial infarction. No shift of the midline structures, mass effect, or extra-axial abnormalities are shown. CTA Head: The anterior and posterior cerebral circulations are patent. No hemodynamically significant stenosis, aneurysm, dissection, or arteriovenous malformation is shown. IMPRESSION: 1. No acute intracranial hemorrhage, evidence of acute territorial infarction, or other acute intracranial disease process. 2. No occlusion, hemodynamically significant stenosis, aneurysm, dissection, or arteriovenous malformation in the major intracranial arteries. Assessment of stenosis of the internal carotid arteries is based on NASCET criteria. ACT 112: Negative or not required by law. Electronically signed by: David Coelho M.D. 11/22/2023 2:16 PM Head CTA 11/22/23 13:47 CT angio head w con, CT head/brain wo con CLINICAL HISTORY: neuro deficit, acute stroke suspected TECHNIQUE: Contiguous axial CT images of the head were acquired from the base of the skull to the vertex without intravenous contrast administration. CT angiography of the head was performed following intravenous administration of iodinated contrast. Coronal and sagittal MIPS were obtained from the axial data set and were submitted for review. Automated dose lowering techniques and/or adjustment according to patient size were utilized for this examination. All measurements were calculated based on NASCET criteria. Comparison: None available at the time of this dictation. FINDINGS: CT head: There is no acute intracranial hemorrhage or evidence of acute territorial infarction. No shift of the midline structures, mass effect, or extra-axial abnormalities are shown. CTA Head: The anterior and posterior cerebral circulations are patent. No hemodynamically significant stenosis, aneurysm, dissection, or arteriovenous malformation is shown. IMPRESSION: 1. No acute intracranial hemorrhage, evidence of acute territorial infarction, or other acute intracranial disease process. 2. No occlusion, hemodynamically significant stenosis, aneurysm, dissection, or arteriovenous malformation in the major intracranial arteries. Assessment of stenosis of the internal carotid arteries is based on NASCET criteria. ACT 112: Negative or not required by law. Electronically signed by: David Coelho M.D. 11/22/2023 2:16 PM Neck CTA 11/22/23 13:47 CT ANGIOGRAM OF THE NECK CLINICAL HISTORY: Neurological deficit. Stroke like symptoms. COMPARISON STUDY: CT angiogram of the neck dated 05/03/2023. TECHNIQUE: Following the IV administration of 119 of Optiray 320, CT angiogram of the neck was performed from the aortic arch to the skull base. Images are reviewed in the axial, sagittal, and coronal planes. 3-D MIPS images are created and assessed. IV contrast was administered without complication. All measurements were calculated based on NASCET criteria. A dose lowering technique was utilized adhering to the principles of ALARA. CT DOSE: 1368.74 mGy.cm FINDINGS: Thoracic aorta: Visualized portions of the thoracic aorta are normal in caliber. The aortic arch demonstrates standard 3-vessel anatomy. Right carotid arterial system: The right common carotid artery is widely patent, as are the right internal and external carotid arteries. Left carotid arterial system: The left common carotid artery is widely patent, as are the left internal and external carotid arteries. Vertebral arteries: The vertebral arteries are widely patent bilaterally and co dominant. Subclavian arteries: Widely patent bilaterally. Jugular veins: Patent bilaterally. Brain parenchyma: The visualized brain parenchyma the skull base is within normal limits. Lung apices: Partially visualized upper lobe lung parenchyma appears clear. Soft tissues: The visualized pharyngeal soft tissues are normal in appearance noting angiographic phase technique. The oropharyngeal airway appears widely patent. The salivary and thyroid glands are normal in appearance. No cervical lymphadenopathy is seen. Skeletal structures: The visualized calvarium at the skull base appears intact. The imaged cervical spine is maintained noting mild spondylosis. Sinuses and mastoids: There is mild mucosal thickening with an air-fluid level seen in the right maxillary antrum. Mild mucosal thickening is also noted in the left maxillary sinus. The mastoid air cells are well pneumatized. IMPRESSION: Unremarkable CT angiogram of the neck. ACT 112: Negative or not required by law. Electronically signed by: Bro Chance M.D. 11/22/2023 2:13 PM Medications Administered Valproic Acid 500 mg/ Dextrose 55 mls @ 55 mls/hr IV ONE STA Stop: 11/22/23 16:14 Last Admin: 11/22/23 15:37 Dose: 55 mls/hr Documented By: MARIA ISABEL Discontinued Medications Tenecteplase 19 mg/ Syringe 3.8 mls @ 45.6 mls/min IV NOW ONE; Protocol Stop: 11/22/23 14:17 Last Admin: 11/22/23 15:59 Dose: Not Given Documented By: EDUARDO Ioversol (Optiray 320 125ml) 119 ml IV ONCE ONE Stop: 11/22/23 14:03 Last Admin: 11/22/23 14:02 Dose: 119 ml Documented By: ALEXIA Lorazepam (Lorazepam 1 Mg/1 Ml Syr Ed Inj Use) Confirm Administered Dose 2 mg .ROUTE .STK-MED ONE Stop: 11/22/23 14:32 Last Admin: 11/22/23 15:58 Dose: Not Given Documented By: EDUARDO Lorazepam (Lorazepam 1 Mg/1 Ml Syr Ed Inj Use) 2 mg IV ONE STA Stop: 11/22/23 14:32 Last Admin: 11/22/23 14:43 Dose: 2 mg Documented By: JOE Miscellaneous (Stat Iv/Im) 1 each N/A NOW STA Stop: 11/22/23 14:07 Last Admin: 11/22/23 15:59 Dose: Not Given Documented By: EDUARDO Sodium Chloride (Sodium Chloride 0.9% 10ml Flush) 20 ml IV NOW STA Stop: 11/22/23 14:07 Last Admin: 11/22/23 15:58 Dose: Not Given Documented By: EDUARDO Supervising Physician Co-Signing Physician Notes Attending Addendum: Case reviewed with the advanced practitioner. I have personally performed a history and physical examination on the patient. I have reviewed the advanced practitioner's documentation on the date of service referenced in note, and I agree with, and take responsibility for the plan of care. please refer to her notes for full details patient seen and examined, records reviewed by myself as well ASSESSMENT AND PLAN STROKE LIKE SYMPTOMS Possible TIA, rule out acute CVA, partial seizure, complex migraine CT head: Negative for acute process Brain MRI ordered Plavix added to aspirin EEG ordered Toradol as needed for possible migraine History of depression, anxiety Patient reports feeling overwhelmed recently secondary to stressors at home and at work Will consult psychiatry service other diagnoses and plan of care as per advanced practitioner's notes Osvaldo Brady MD (3) GERD (gastroesophageal reflux disease) Esophagitis presence: without esophagitis Qualified Code(s): K21.9 - Gastro- esophageal reflux disease without esophagitis
[2023-11-22 16:01] LABS: Appearance Urine Clear (Clear); Bacteria Urine Automated 2+ (None Seen); Bilirubin Urine Negative (Negative); Blood Urine Negative (Negative); Cast Urine Automated 0-2 /lpf (0-2); Color Urine Yellow; Glucose Urine UA Negative (Negative); Ketones Urine Negative (Negative); Leukocyte Esterase Urine 2+ (Negative); Nitrite Urine Negative (Negative); Protein Urine Trace (Negative); RBC Urine Automated 0-2 /hpf (0-2); Specific Gravity Urine > 1.045 (1.000-1.030); Urobilinogen Urine Negative (Negative); WBC Urine Automated >50 /hpf (0-5); pH Urine 5.5 (4.5-7.5)
[2023-11-22] MEDS: VALPROATE SOD IV ONE (16:09)
[2023-11-22] MEDS: DEXTROSE 5% IV ONE (16:09)
[2023-11-22 16:42] LABS: Amphetamines+Metham, Urine Neg (Neg); Barbiturates, Urine Neg (Neg); Benzodiazepine, Urine Neg (Neg); Cocaine, Urine Neg (Neg); Fentanyl, Urine Neg (Neg); MDMA (Ecstacy), Urine Pos (Neg); Marijuana, Urine Neg (Neg); Methadone, Urine Neg (Neg); Opiate, Urine Neg (Neg); Phencyclidine, Urine Neg (Neg)
[2023-11-22] MEDS: CLOPIDOGREL BISULFATE 75 MG TAB PO STA (17:56)
[2023-11-22] MEDS: KETOROLAC TROMETHAMINE 15 MG/ML VIAL IV STA (17:56)
[2023-11-22 18:33] LABS: Adenovirus PCR Not Detected (NotDetected); Bordetella parapertussis PCR Not Detected (NotDetected); Bordetella pertussis PCR Not Detected (NotDetected); Chlamydia pneumoniae PCR Not Detected (NotDetected); Coronavirus 229E PCR Not Detected (NotDetected); Coronavirus CoV-2 (COVID19)PCR Not Detected (NotDetected); Coronavirus HKU1 PCR Not Detected (NotDetected); Coronavirus NL63 PCR Not Detected (NotDetected); Coronavirus OC43PCR Not Detected (NotDetected); Human Metapneumovirus PCR Not Detected (NotDetected); Influenza A PCR Not Detected (NotDetected); Influenza B PCR Not Detected (NotDetected); Mycoplasma pneumoniae PCR Not Detected (NotDetected); Parainfluenza Virus 1 PCR Not Detected (NotDetected); Parainfluenza Virus 2 PCR Not Detected (NotDetected); Parainfluenza Virus 3 PCR DETECTED (NotDetected); Parainfluenza Virus 4 PCR Not Detected (NotDetected); Respiratory Syncytial VirusPCR Not Detected (NotDetected); Rhinovirus/Enterovirus PCR Not Detected (NotDetected)
--- NOTE | 2023-11-22 18:58 | XRay Report ---
BONY ORBITS 3 VIEWS CLINICAL HISTORY: MRI clearance. FINDINGS: 3 views of the bony orbits are compared to study dated 05/03/2023. There is no radiodense/m etallic foreign body seen in the region of the bony orbits. The bony orbits are intact as imaged. The visualized paranasal sinuses and the mastoid air cells appear clear. The imaged calvarium appears in tact. IMPRESSION: There is no radiodense/metallic foreign body seen in the region of the bony orbits. ACT 112: Negative or not required by law. Electronically signed by: Bro Chance M.D. 11/22/2023 6:57 PM
[2023-11-22] MEDS: GADOBUTROL 65ML VIAL IV ONE (19:56)
[2023-11-22] MEDS: NICOTINE 21 MG/24 HR TDSY TD SCH (20:20)
--- NOTE | 2023-11-22 22:58 | Magnetic Resonance Report ---
Exam(s): MRI HEAD W/WO Contrast IV Amt: 7.5cc gadavist EXAM: MR Head Without and With Intravenous Contrast CLINICAL HISTORY: Reason for exam: stroke-like symptoms vs. seizure. TECHNIQUE: Magnetic resonance images of the head/brain without and with intravenous contrast in multiple planes. CONTRAST: Patient received 7.5cc Gadavist of IV contrast COMPARISON: CT head 11-22-2023, CTA head 11-22-2023, MRI brain 05/03/2023. FINDINGS: Brain: Age-appropriate central and peripheral atrophy. No acute stroke. No focal parenchymal abnormality. No acute hemorrhage. No abnormal extra-axial fluid collection. No mass lesion. No abnormal parenchymal or leptomeningeal enhancement postcontrast. Ventricles: No midline shift. No ventriculomegaly. Incidental cavum of septum pellucidum. Bones/joints: Unremarkable. No acute fracture. Sinuses: Diffuse paranasal sinus mucosal thickening. Small right maxillary sinus air-fluid level. Mastoid air cells: Unremarkable as visualized. No mastoid effusion. Orbits: Unremarkable as visualized. IMPRESSION: No acute abnormality. Electronically signed by: Alexander Robles M.D. 11/22/23 22:58 PM
[2023-11-23] MEDS: traZODone HCL 50 MG TAB PO PRN (00:08)
[2023-11-23] MEDS: KETOROLAC TROMETHAMINE 15 MG/ML VIAL IV PRN (00:09)
--- OUTSIDE RECORDS SUMMARY | 2023-11-23 00:53 | External Medical Summary | Summary of Care ---
Author Name Unknown Organization [facility] Address [address] [place] [address] Phone [phone] Care Team Providers Care [employer] Assistant Manager Name Role Phone Awais Major MD Primary Care Provide r Encounter Details Date Type Department Care Team (Late st Contact Info) Description 11/02/2023 Orders Only PATIENT PORTAL DO NOT DELETE THIS DEPT USED BY JERSON TYSON [id number] Allergies Active Allergy Reactions Criticality Noted Date Comments Neomycin-Bacitracin Zn-Polymyx Rash 03/25 documented as of this encounter (statuses as of 11/02/2023) Medications Medication Sig Dispensed Refills Start Date End Date Status Tamsulosin HCl 0.4 MG Oral Capsule (Flomax)Indications: History of kidney stones Take 1 Capsule by mouth in the morning. 7 Capsule 05/26/2023 Active Additional Information Patient not taking.Reported on 06/17/2023 Citalopram Hydrobromide 40 MG Oral Tablet (CeleXA)Indications: Anxiety Take 1 Tablet by mouth in the morning. In the morning.. 30 Tablet 2 05/26/2023 Active Naproxen 500 MG Oral Tablet (Naprosyn)Indication s:Acute cystitis with hematuria,History of kidney stones Take 1 Tablet by mouth 2 times a day with morning and evening meals. 20 Tablet 05/26/2023 Active Additional Information Patient not taking.Reported on 07/09/2023 Atorvastatin Calcium 40 MG Oral Tablet (Lipitor) Take 1 Tablet by mouth in the morning. 30 Tablet 2 06/10/2023 Active Aspirin Low Dose 81 MG Oral Tablet Delayed Release (aspirin enteric coated) TAKE ONE TABLET BY MOUTH IN THE MORNING 30 Tablet 2 06/10/2023 Active Pantoprazole Sodium 40 MG Oral Tablet Delayed Release (Protonix)Indication s:Gastroesophageal reflux disease without esophagitis TAKE 1 TABLET IN THE MORNING 30 MINUTES BEFORE THE FIRST MEAL OF THE DAY. DO NOT CRUSH, SPLIT OR CHEW THE TABLET. 90 Tablet 1 10/28/2023 Active documented as of this encounter (statuses as of 11/02/2023) Active Problems Problem Noted Date Diagnosed Date Gastroesophageal reflux disease without esophagi tis 04/22/2022 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 Paranoid disorder 02/10/2021 Anxiety 02/10/2021 ADHD (attention deficit hype ractivity disorder), combined type 02/10/2021 Lipoma 02/10/2021 documented as of this encounter (statuses as of 11/02/2023) Immunizations Name Administration Dates Next Due Covid-19 Ad26, Single Dose (Bart/J&J) 021 Seasonal Influenza, PF, 6 M & above, IM , (FluLaval or Fluzone) 01/21/2022 TDAP, Age 7 and older, IM (Adacel) 06/14/2012 documented as of this encounter Social History Tobacco Use Types Packs/Day Years Used Date Smoking Tobacco: Never Smokeless Tobacco: Current Chew Alcohol Use Standard Drinks/Week Comments Yes 0 (1 standard drink = 0.6 oz pur e alcohol) AUDIT-C Answer Date Recorded Q1: How often do you have a drink containing alc ohol? Monthly or less 02/10/2021 Q2: How many drinks containi ng alcohol do you have on a typical day when you are drinking? Not asked 02/10/2021 Q3: How often do you have si x or more drinks on one occasion? Not asked 02/10/2021 Utilities Answer Date Recorded Do you have trouble paying y our heating, water, or electric bill? (Adult - for ages 18 years and over) Not on file 10/26/2023 Is your family able to pay t he heat, water, or electric bill? (Household - for ages 0-17 years) Not on file 10/26/2023 Does your family have access to good internet? (Household - for ages 0-17 years) Not on file 10/26/2023 Social Connections Answer Date Recorded How often do you feel lonely or isolated from those around you? (Adult - for ages 18 years and over) Not on file 10/26/2023 Sex and Gender Information Value Date Recorded Sex Assigned at Not on file Gender Identity Not on file Sexual Orientation Not on file Job Start Date Occupation Industry Not on file Not on file Not on file documented as of this encounter Plan of Treatment Health Maintenance Due Date Last Done Comments Depression Screening 1991 HIV Screening 1994 Hepatitis C Screening 1997 Hepatitis B (1 of 3 - 19+ 3-dose series) 1998 DTaP,Tdap,and Td Vaccines (2 - Td or Tdap) 06/14/2022 06/14/2012 COVID-19 Vaccine (2 - 2022-2 4 season) 2023 10/28/2020 Influenza Vaccine (FLU shot) (Season Ended) 2024 01/21/2022 Lipid Panel 02/11/2026 02/11/2021 Diabetes Screening 06/02/2026 06/02/2023, 03/20/2022, 02/11/2021 GARDASIL-HPV IMMUNIZATION SERIES Aged Out No longer eligible b ased on patient's age to complete this topic MENINGOCOCCAL (MENACTRA/MENVEO) Aged Out No longer eligible b ased on patient's age to complete this topic Pneumococcal Vaccine: Pediatrics (0 to 5 Years) and At-Risk Patients (6 to 64 Years) Aged Out No longer eligible b ased on patient's age to complete this topic documented as of this encounter Medical Devices Not on filedocumented as of this encounter Care Teams [employer] Assistant Manager Relationship Specialty Start Date End Date Awais Major MD [address] [place] [address] JERSON Zimmer [phone] PCP - General Family Medicine 02/10/21 documented as of this encounter
--- OUTSIDE RECORDS SUMMARY | 2023-11-23 00:53 | External Medical Summary | Summary of Care ---
Author Name Unknown Organization [facility] Address [address] [place] [address] Phone [phone] Care Team Providers Care Neurourologist Name Role Phone Awais Major MD Primary Care Provide r Reason for Visit * Reason Comments eRx-Medication Refill Encounter Details Date Type Department Care Team (Late st Contact Info) Description 10/27/2023 Refill Family Medicine [address] [phone] Awais Major MD [address] [place] [address] [place] [address] Encounter for long-term (current) use of medications*; Gastroesophageal reflux disease without esophagitis Allergies Active Allergy Reactions Criticality Noted Date Comments Neomycin-Bacitracin Zn-Polymyx Rash 03/25 documented as of this encounter (statuses as of 10/28/2023) Medications Medication Sig Dispensed Refills Start Date End Date Status Tamsulosin HCl 0.4 MG Oral Capsule (Flomax)Indicatio ns:History of kidney stones Take 1 Capsule by mouth in the morning. 7 Capsule 05/26/2023 Active Additional Information Patient not taking.Reported on 06/17/2023 Citalopram Hydrobromide 40 MG Oral Tablet (CeleXA)Indicatio ns:Anxiety Take 1 Tablet by mouth in the morning. In the morning.. 30 Tablet 2 05/26/2023 Active Naproxen 500 MG Oral Tablet (Naprosyn)Indicat ions:Acute cystitis with hematuria,History of kidney stones Take [...] Sodium 40 MG Oral Tablet Delayed Release (Protonix)Indicat ions:Gastroesopha geal reflux disease without esophagitis TAKE 1 TABLET IN THE MORNING 30 MINUTES BEFORE THE FIRST MEAL OF THE DAY. DO NOT CRUSH, SPLIT OR CHEW THE TABLET. 90 Tablet 1 10/28/2023 Active Pantoprazole Sodium 40 MG Oral Tablet Delayed Release (Protonix)Indicat ions:Gastroesopha geal reflux disease without esophagitis TAKE 1 TABLET IN THE MORNING 30 MINUTES BEFORE THE FIRST MEAL OF THE DAY. DO NOT CRUSH, SPLIT OR CHEW THE TABLET. 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 DO NOT CRUSH, SPLIT OR CHEW THE TABLET.Authorizing Provider: Mylene MAJOR User: TOÑA PAREDES documented in this encounter Plan of Treatment Scheduled Orders Name Type Priority Associated Diagnoses Orde r Schedule VITAMIN B12 Lab Routine Encounter for long-term (current) use of medications Expected: 11/04/2023 (Approximate), Expires: 10/27/2024 Health Maintenance Due Date Last Done Comments [...] Not on filedocumented as of this encounter Visit Diagnoses Diagnosis Encounter for long-term (current) use of medications- Primary Encounter for long-term (current) use of other medications Gastroesophageal reflux disease without esophagitis Esophageal reflux documented in this encounter Care Teams Neurourologist Relationship Specialty Start Date End Date Awais Major MD [address] [place] [address] [place] [phone] PCP - General Family Medicine 02/10/21 documented as of this encounter
--- OUTSIDE RECORDS SUMMARY | 2023-11-23 00:53 | External Medical Summary | Summary of Care ---
Author Name Unknown Organization [facility] Address [address] [place] [address] Phone [phone] Care Team Providers Care Senior C Developer Name Role Phone Awais Major MD Primary Care Provide r Encounter Details Date Type Department Care Team (Late st Contact Info) Description 10/22/2023 Result Scan Unspecified Department <No scans attached> Allergies Active Allergy Reactions Criticality Noted Date Comments Neomycin-Bacitracin Zn-Polymyx Rash 03/25 documented as of this encounter (statuses as of 10/25/2023) Medications Medication Sig Dispensed Refills Start Date End Date Status Pantoprazole Sodium 40 MG Oral Tablet Delayed Release (Protonix)Indication s:Gastroesophageal reflux disease without esophagitis TAKE 1 TABLET IN THE MORNING 30 MINUTES BEFORE THE FIRST MEAL OF THE DAY. DO NOT CRUSH, SPLIT OR CHEW THE TABLET. 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 Not asked 02/10/2021 Sex and Gender Information Value Date Recorded [...] Not on filedocumented as of this encounter Procedures Procedure Name Priority Date/Time Associated Diagnosis Comments RADIOLOGY SCANNED RESULT 10/22/2023 documented in this encounter Results * RADIOLOGY SCANNED RESULT (10/22/2023) 10/22/2023 No Physician Data Unknown DIAGNOSTIC RAD IOLOGY SERVICES documented in this encounter Care Teams Senior C Developer Relationship Specialty Start Date End Date Awais Major MD [address] [place] [address] [place] [phone] PCP - General Family Medicine 02/10/21 documented as of this encounter
--- OUTSIDE RECORDS SUMMARY | 2023-11-23 00:54 | External Medical Summary | Summary of Care ---
Author Name Unknown Organization [facility] Address [address] [place] [address] Phone [phone] Care Team Providers Care General Car Supervisor Yard Name Role Phone Awais Major MD Primary Care Provide r Reason for Visit * Reason Onset Date Comments Appointment 06/17/2023 Encounter Details Date Type Department Care Team (Late st Contact Info) Description 06/17/2023 Telephone Hematology/Oncology [facility] [address] [place] [address] Alexus Hutchinson CRNP [address] [place] [address] Appointment Allergies Active Allergy Reactions Criticality Noted Date Comments Neomycin-Bacitracin Zn-Polymyx Rash 03/25 documented as of this encounter (statuses as of 06/17/2023) Medications Medication Sig Dispensed Refills Start Date End Date Status Pantoprazole Sodium 40 MG Oral Tablet Delayed Release (Protonix)Indications: Gastroesophageal reflux disease without esophagitis TAKE 1 TABLET IN THE MORNING 30 MINUTES BEFORE THE FIRST MEAL OF THE DAY. DO NOT CRUSH, SPLIT OR CHEW THE TABLET. 90 Tablet 1 05/01/2023 Active Tamsulosin HCl 0.4 MG Oral Capsule (Flomax)Indications:Hi story of kidney stones Take 1 Capsule by mouth in the morning. 7 Capsule 0 05/26/2023 Active Citalopram Hydrobromide 40 MG Oral Tablet (CeleXA)Indications:An xiety Take 1 Tablet by mouth in the morning. In the morning.. 30 Tablet 2 05/26/2023 Active Naproxen 500 MG Oral Tablet (Naprosyn)Indications: Acute cystitis with hematuria,History of kidney stones Take 1 Tablet by mouth 2 times a day with morning and evening meals. 20 Tablet 0 05/26/2023 Active Atorvastatin Calcium 40 MG Oral Tablet (Lipitor) Take 1 Tablet by mouth in the morning. 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 Paranoid disorder 02/10/2021 Anxiety 02/10/2021 ADHD (attention deficit hype ractivity disorder), combined type 02/10/2021 Lipoma 02/10/2021 documented as of this encounter (statuses as of 06/17/2023) Immunizations Name Administration Dates Next Due Covid-19 Ad26, Single Dose (Bart/J&J) 021 Seasonal Influenza, PF, 6 M & above, IM , (FluLaval or Fluzone) 01/21/2022 TDAP (age 11 and older)(Adacel) 06/14/2012 documented as of this encounter Social [...] encounter Miscellaneous Notes * Telephone Encounter - Kelly Allison LPN - 06/17/2023 10:25 AM EST Error not correct * Telephone Encounter - Kelly Allison LPN - 06/17/2023 9:40 AM EST Referral received for Thrombocytopenia. Patient is established with TODD Brasher last had telephone visit 03/2022 same diagnosis Please contact patient to set up follow up with TODD Brasher documented in this encounter Plan of Treatment Upcoming Encounters Date Type Department Care Team (Late st Contact Info) Description 06/17/2023 1:00 PM EST Office Visit Hematology/Oncology [facility] [address] [facility] [place] [address] Alexus Hutchinson CRNP [address] [facility] [place] [address] 07/09/2023 11:20 AM EST Office Visit Neurology [facility] [address] [facility] [place] [address] Raquel Dickerson PA-C [address] [facility] [place] [address] Health Maintenance Due Date Last Done Comments Hepatitis B (1 of 3 - 3-dose series) 1979 Depression Screening 1991 HIV Screening 1994 Hepatitis C Screening 1997 DTaP,Tdap,and Td Vaccines (2 - Td or Tdap) 06/14/2022 06/14/2012 COVID-19 Vaccine (2 - 2022-2 4 season) 2023 10/28/2020 Influenza Vaccine (FLU shot) (#1) 2023 022 Lipid Panel 02/11/2026 02/11/2021 GARDASIL-HPV IMMUNIZATION SERIES Aged Out No longer eligible based on patient's age to complete this topic MENINGOCOCCAL (MENACTRA/MENVEO) Aged Out No longer eligible based on patient's age to complete this topic Pneumococcal Vaccine: Pediat rics (0 to 5 Years) and At-Risk Patients (6 to 64 Years) Aged Out No longer eligi ble based on patient's age to complete this topic documented as of this encounter Medical Devices Not on filedocumented as of this encounter Care Teams General Car Supervisor Yard Relationship Specialty Start Date End Date Awais Major MD [address] [place] [address] [place] [phone] PCP - General Family Medicine 02/10/21 documented as of this encounter
--- OUTSIDE RECORDS SUMMARY | 2023-11-23 00:54 | External Medical Summary ---
Author Name Unknown Address Unknown Organization K01:[facility] [address] [place] [address] Laboratory Report Ordering Provider Test Date Status HUMPHREY AGUERO 07/09/2023 12:16:56 Final Anticardiolipin / beta-2 gly coprotein antibodies must be detected on 2 or more occasions at least 12 weeks apart to fulfill the laboratory diagnostic criteria for Antiphospholipid Syndrome. Observation Date Value Abnormality Reference (Units ) Status Beta 2 glycoprotein 1 IgG Ab [Presence] in Serum 07/09/2023 12:16:56 Negative Negative Final Beta 2 glycoprotein 1 IgG Ab [Units/volume] in Serum or Plasma by Immunoassay 07/09/2023 12:16:56 <0.8 <7 (U/mL) Final [place]forming [place] [facility] [place] [facility] [place] [address]
--- OUTSIDE RECORDS SUMMARY | 2023-11-23 00:54 | External Medical Summary ---
Author Name Unknown Address Unknown Organization [id number] [place] [address] [place] [address] Laboratory Report Ordering Provider Test Date Status RAMEZ BLUM 06/02/2023 08:54:04 Final Observation Date Value Abnormality Reference (Units ) Status BUN 06/02/2023 08:54:04 24 Above high normal 6-20 (mg/dL) Final Creatinine 06/02/2023 08:54:04 1.3 Above high normal 0.6-1.2 (mg/dL) Final Glomerular filtration rate/1.73 sq M.predicted [Volume Rate/Area] in Serum, Plasma or Blood by Creatinine-based formula (CKD-EPI) 06/02/2023 08:54:04 68 >=60 (mL/min) Final eGFR is calculated based on the CKD-EPI 2020 equation SODIUM 06/02/2023 08:54:04 136 135-146 (m mol/L) Final Potassium 06/02/2023 08:54:04 4.8 3.5-5.1 (m mol/L) Final Cl 06/02/2023 08:54:04 102 98-107 (mm ol/L) Final CO2 06/02/2023 08:54:04 25 22-32 (mmo l/L) Final Anion gap 06/02/2023 08:54:04 9 7-15 (mmol /L) Final Glucose 06/02/2023 08:54:04 97 70-120 (mg /dL) Final Albumin 06/02/2023 08:54:04 4.8 3.8-5.0 (g /dL) Final AST (Aspartate aminotransferase) 06/02/2023 08:54:04 41 10-50 (U/L) Fin al Alk Phos 06/02/2023 08:54:04 78 35-130 (U/ L) Final Bilirubin, Total 06/02/2023 08:54:04 <0.2 <=1 .2 (mg/dL) Final Calcium 06/02/2023 08:54:04 9.8 8.4-10.2 ( mg/dL) Final Protein 06/02/2023 08:54:04 6.9 6.0-8.3 (g /dL) Final ALT (Alanine aminotransferase) 06/02/2023 08:54:04 65 Above high normal 10-50 (U/L) Final Performing Location [facility] [place] [facility] [place] [address]
--- OUTSIDE RECORDS SUMMARY | 2023-11-23 00:54 | External Medical Summary ---
Author Name Unknown Address Unknown Organization K01:[facility] - [address] [place] [address] Laboratory Report Ordering Provider Test Date Status RAMEZ BLUM 06/02/2023 08:54:04 Final Observation Date Value Abnormality Reference (Units ) Status Phosphate 06/02/2023 08:54:04 2.4 Below low normal 2.5 -4.8 (mg/dL) Final Performing Location [facility] - [address] [place] [address]
--- OUTSIDE RECORDS SUMMARY | 2023-11-23 00:54 | External Medical Summary | Summary of Care ---
Author Name Unknown Organization [facility] Address [address] [place] [address] Phone [phone] Care Team Providers Care Credit Front Office Developer Name Role Phone Awais Major MD Primary Care Provide r Reason for Visit * Reason Comments eRx-Medication Refill Encounter Details Date Type Department Care Team (Late st Contact Info) Description 06/09/2023 Refill Family Medicine [address] [phone] Awais Major MD [address] [place] [address] [place] [address] Allergies Active Allergy Reactions Criticality Noted Date Comments Neomycin-Bacitracin Zn-Polymyx Rash 03/25 documented as of this encounter (statuses as of 06/10/2023) Medications Medication Sig Dispensed Refills Start Date End Date Status Pantoprazole Sodium 40 MG Oral Tablet Delayed Release (Protonix)Indicati ons:Gastroesophage al reflux disease without esophagitis TAKE 1 TABLET IN THE MORNING 30 MINUTES BEFORE THE FIRST MEAL OF THE DAY. DO NOT CRUSH, SPLIT OR CHEW THE TABLET. 90 Tablet 1 05/01/2023 Active Tamsulosin HCl 0.4 MG Oral Capsule (Flomax)Indication s:History of kidney stones Take 1 Capsule by mouth in the morning. 7 Capsule 0 05/26/2023 Active Citalopram Hydrobromide 40 MG Oral Tablet (CeleXA)Indication s:Anxiety Take 1 Tablet by mouth in the morning. In the morning.. 30 Tablet 2 05/26/2023 Active Naproxen 500 MG Oral Tablet (Naprosyn)Indicati ons:Acute cystitis with hematuria,History of kidney stones Take [...] THE MORNING 30 Tablet 2 06/10/2023 Active Atorvastatin Calcium 40 MG Oral Tablet (Lipitor) Take 1 Tablet by mouth in the morning. 0 05/05/2023 06/10/2023 Discontinued Aspirin 81 MG Oral Tablet Delayed Release Take 1 Tablet by mouth in the morning. 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 Authorizing Provider: AWAIS MAJOR Aspirin Low Dose 81 MG Oral Tablet Delayed*30 Tab*2 Sig: TAKE ONE TABLET BY MOUTH IN THE MORNING Authorizing Provider: AWAIS MAJOR * Telephone Encounter - Nancy Peter [facility] - 06/10/2023 7:41 AM ESTPending Prescriptions: Disp Refills Atorvastatin Calcium 40 MG Oral Tablet (Li*30 Tab* Sig: Take 1 Tablet by mouth in the morning. Aspirin Low Dose 81 MG Oral Tablet Delayed*30 Tab* Sig: TAKE ONE TABLET BY MOUTH IN THE MORNING * Telephone Encounter - Nancy Peter [facility] - 06/10/2023 7:40 AM EST Pharmacists cannot authorize refills for meds listed as "historical" in chart. Please approve if appropriate. Pending Prescriptions: Disp Refills Atorvastatin Calcium 40 MG Oral Tablet (L*30 Tab* Sig: Take 1 Tablet by mouth in the morning. Aspirin Low Dose 81 MG Oral Tablet Delaye*30 Tab* Sig: TAKE ONE TABLET BY MOUTH IN THE MORNING Last Visit: 06/02/2023 (in office), Visit date not found (telemedicine) Next Visit: Visit date not found If no future appointments scheduled, and last appointment is greater than a year ago, please schedule patient for a follow-up appointment Last date the medication was ordered: historical Pharmacy: [id number] [facility] Is this request for a controlled substance? No Urine Drug Screen:No results found for this or any previous visit. Patient Phone Numbers Labs: Lab Results Component Value Date/Time CREAT 1.3 (H) 06/02/2023 08:54 AM POTASSIUM 4.8 06/02/2023 08:54 AM TSH 4.45 (H) 06/19/2022 10:13 AM LDLCALC 130 (H) 02/11/2021 10:33 AM ALT 65 (H) 06/02/2023 08:54 AM Thank you, Nancy Peter, PharmD Clinical Pharmacist [facility] (formerly Telepharm[facility]) [phone] 06/10/2023, 7:41 AM documented in this encounter Plan of Treatment Upcoming Encounters Date Type Department Care Team (Late st Contact Info) Description 06/17/2023 1:00 PM EST Office Visit Hematology/Oncology [facility] [place] [address] [place] [address] Alexus Hutchinson CRNP [address] [facility] [place] [address] 07/09/2023 11:20 AM EST Office Visit Neurology [facility] [place] [address] [facility] [place] [address] Raquel Dickerson PA-C [address] [facility] [place] [address] Health Maintenance Due Date Last Done Comments [...] filedocumented as of this encounter Care Teams Credit Front Office Developer Relationship Specialty Start Date End Date Awais Major MD [address] [place] [address] [place] [phone] PCP - General Family Medicine 02/10/21 documented as of this encounter
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
--- OUTSIDE RECORDS SUMMARY | 2023-11-23 00:54 | External Medical Summary | Summary of Care ---
Author Name Unknown Organization [facility] Address [address] [place] [facility] [place] [address] Phone [phone] Care Team Providers Care Garden Machinery Mechanic Name Role Phone Awais Major MD Primary Care Provide r Reason for Referral * Evaluate & Treat - Unlimited Visits (Within 10 days (routine)) - Pending Review Specialty Diagnoses / Procedures Referred By Denzel cook Referred To Contact Hematology/Oncology / Hematology Oncology Diagnoses Stroke-like symptoms Prachi Sheikh PA-C [address] [place] [address] [place] [phone] Referral ID Status Reason Start Date Expiration Date Visits Requested Visits Authorized [id number] Pending Review Specialty Services Required 06/02/[phone] Question Answer Referral Priority Within 10 days (routine) Where should this appointment be scheduled? [facility] Reason for Referral Other - Please Comment Comments Needs hypercoag work up Reason for Visit * Reason Onset Date Comments Re-Check Hospital Follow-Up 06/02/2023 Encounter Details Date Type Department Care Team (Late st Contact Info) Description 06/02/2023 8:00 AM EST Office Visit Family Medicine [address] [place] [phone] Prachi Sheikh PA-C [address] [place] [address] [place] [phone] Stroke-like symptoms*; Hospital discharge follow-up Allergies Active Allergy Reactions Criticality Noted Date Comments Neomycin-Bacitracin Zn-Polymyx Rash 03/25 documented as of this encounter (statuses as of 06/02/2023) Medications Medication Sig Dispensed Refills Start Date End Date Status Pantoprazole Sodium 40 MG Oral Tablet Delayed Release (Protonix)Indications :Gastroesophageal reflux disease without esophagitis TAKE 1 TABLET IN THE MORNING 30 MINUTES BEFORE THE FIRST MEAL OF THE DAY. DO NOT CRUSH, SPLIT OR CHEW THE TABLET. 90 Tablet 1 05/01/2023 Active Sulfamethoxazole-Trim ethoprim 800-160 MG Oral Tablet (Bactrim DS)Indications:Acute cystitis with hematuria Take 1 Tablet by mouth in the morning and 1 Tablet before bedtime. Do all this for 7 days. Until gone. 14 Tablet 0 05/26/2023 06/02/2023 Active Tamsulosin HCl 0.4 MG Oral Capsule (Flomax)Indications:H istory of kidney stones Take 1 Capsule by mouth in the morning. 7 Capsule 0 05/26/2023 Active Citalopram Hydrobromide 40 MG Oral Tablet (CeleXA)Indications:A nxiety Take 1 Tablet by mouth in the morning. In the morning.. 30 Tablet 2 05/26/2023 Active Naproxen 500 MG Oral Tablet (Naprosyn)Indications :Acute cystitis with hematuria,History of kidney stones Take 1 Tablet by mouth 2 times a day with morning and evening meals. 20 Tablet 0 05/26/2023 Active Atorvastatin Calcium 40 MG Oral Tablet (Lipitor) Take 1 Tablet by mouth in the morning. 0 05/05/2023 Active Aspirin 81 MG Oral Tablet Delayed Release Take 1 Tablet by mouth in the morning. 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 Paranoid disorder 02/10/2021 Anxiety 02/10/2021 ADHD (attention deficit hype ractivity disorder), combined type 02/10/2021 Lipoma 02/10/2021 documented as of this encounter (statuses as of 06/02/2023) Immunizations Name Administration Dates Next Due Covid-19 Ad26, Single Dose (Bart/J&J) 021 Seasonal Influenza, PF, 6 M & above, IM , (FluLaval or Fluzone) 01/21/2022 TDAP (age 11 and older)(Adacel) 06/14/2012 documented as of this encounter Social History Tobacco Use Types Packs/Day Years Used Date Smoking Tobacco: Never Smokeless Tobacco: Current Chew Tobacco Cessation:Ready to Q uit: Not Asked; Counseling Given: Not Answered Alcohol Use Standard Drinks/Week Comments Yes 0 [...] Sign Reading Time Taken Comments Blood Pressure 118/68 06/02/2023 8:15 AM EST Pulse 71 06/02/2023 8:15 AM EST Temperature 36.2 C (97.2 F) 06/02/2023 8:15 AM ES T Respiratory Rate 16 06/02/2023 8:15 AM EST Oxygen Saturation - - Inhaled Oxygen Concentration - - Weight 81 kg (178 lb 8 oz) 06/02/2023 8:15 AM ES T Height - - Body Mass Index 24.9 03/19/2023 9:46 AM EST documented in this encounter Progress Notes * Prachi Sheikh PA-C - 06/02/2023 8:17 AM EST Nursing Notes: Maddy Blackman LPN 06/02/23 0816 Sign at exiting of workspace Follow up from hospital. Pt here today for hospital discharge. He was admitted on 05/03/23 and dc'd 05/05/23. He went with stroke like sx, had been diagnosed with covid earlier in the week. CT of head showed left temporal lobe lesion with mass effect. CTA of head and neck ok. Pt was to be transferred to [place] for MRI but they couldn't get him until the next day. ended up taking him to [facility]. Nothing acute found on scans. Pt was to FU with neuro and psych upon discharge. He has canceled every neuro appt that has been set up. He doesn't have any appt, at this time. It looks like he did have a psych consult with [facility] physician. MRI was normal. AL was normal. Pt is to have labs and zio today. Doesn't have cardio FU. Should also be seen for hypercoag work up. Pt has no questions or concerns at this time. Pt denies chest pain, SOB, slurred speech, facial drooping. No sx since hospital visit. He is following with psych. Review of patient's allergies indicates: Allergen Reactions Neosporin [Neomycin-Bacitracin Zn-Polymyx] Rash Current Outpatient Medications Medication Sig Dispense Refill Pantoprazole Sodium 40 MG Oral Tablet Delayed Release (Protonix) TAKE 1 TABLET IN THE MORNING 30 MINUTES BEFORE THE FIRST MEAL OF THE DAY. DO NOT CRUSH, SPLIT OR CHEW THE TABLET. 90 Tablet 1 Sulfamethoxazole-Trimethoprim 800-160 MG Oral Tablet (Bactrim DS) Take 1 Tablet by mouth in the morning and 1 Tablet before bedtime. Do all this for 7 days. Until gone. 14 Tablet 0 Tamsulosin HCl 0.4 MG Oral Capsule (Flomax) Take 1 Capsule by mouth in the morning. 7 Capsule 0 Citalopram Hydrobromide 40 MG Oral Tablet (CeleXA) Take 1 Tablet by mouth in the morning. In the morning.. 30 Tablet 2 Naproxen 500 MG Oral Tablet (Naprosyn) Take 1 Tablet by mouth 2 times a day with morning and evening meals. 20 Tablet 0 Atorvastatin Calcium 40 MG Oral Tablet (Lipitor) Take 1 Tablet by mouth in the morning. Aspirin 81 MG Oral Tablet Delayed Release Take 1 Tablet by mouth in the morning. No current facility-administered medications for this visit. 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 rate 16, weight 81 kg (178 lb 8 oz). GENERAL: alert, healthy, and no distress HEART: regular rate & rhythm, no murmur, and no gallops LUNGS: chest symmetric with normal AP diameter, no chest deformities noted, no chest wall tenderness, lungs clear to auscultation NECK: supple, no adenopathy, no bruits, thyroid normal size, non-tender, without nodularity A:Stroke-like symptoms (Primary) - EXTERNAL EKG 2 TO 7 DAYS; Future; Expected date: 2023 - CBC WITH WBC DIFFERENTIAL AND ANEMIA REFLEX WORKUP; Future; Expected date: 06/02/2023 - COMPREHENSIVE METABOLIC PANEL; Future; Expected date: 06/02/2023 - MAGNESIUM; Future; Expected date: 06/02/2023 - PHOSPHORUS; Future; Expected date: 06/02/2023 - HEMATOLOGY/ONCOLOGY REFERRAL OP Hospital discharge follow-up - DISCH MED RECON CUR MED LIS Will check some labs. Needs hypercoag work up for stroke like sx. Garry applied. Needs to make appt with neuro. Any questions/problems, please call. If anything changes, worsens, develops new sx, please call [facility]. Follow Up: Return if symptoms worsen or fail to improve. Prachi Sheikh PA-C documented in this encounter Nursing Notes * Maddy Blackman LPN - 06/02/2023 8:51 AM EST 06/02/23 8:51 AM Date to Remove: 06/09/23 Time to Remove: 8:48 am Serial Number: [id number] Ordering Provider: prachi sheikh Results: prachi sheikh LPN Zio patch applied in clinic, as per provider orders. * Maddy Blackman LPN - 06/02/2023 8:12 AM EST Follow up from hospital. documented in this encounter Plan of Treatment Scheduled Orders Name Type Priority Associated Diagnoses Orde r Schedule EXTERNAL EKG 2 TO 7 DAYS Holter Routine Stroke-like symptoms Expected: 2023 (Approximate), Expires: 06/02/2024 CBC WITH WBC DIFFERENTIAL AND ANEMIA REFLEX WORKUP Lab Routine Stroke-like symptoms Expected: 06/02/2023 (Approximate), Expires: 06/02/2024 COMPREHENSIVE METABOLIC PANEL Lab Routine Stroke-like symptoms Expected: 06/02/2023 (Approximate), Expires: 06/01/2024 MAGNESIUM Lab Routine Stroke-like symptoms Expected: 06/02/2023 (Approximate), Expires: 06/01/2024 PHOSPHORUS Lab Routine Stroke-like symptoms Expected: 06/02/2023 (Approximate), Expires: 06/01/2024 Scheduled Referrals Name Type Priority Associated Diagnoses Orde r Schedule HEMATOLOGY/ONCOLOGY REFERRAL OP Referral Within 10 days (routine) Stroke-like symptoms Ordered: 06/02/2023 Health Maintenance Due Date Last Done Comments Hepatitis B (1 of 3 - 3-dose series) 1979 Depression Screening 1991 HIV Screening 1994 Hepatitis C Screening 1997 DTaP,Tdap,and Td Vaccines (2 - Td or Tdap) 06/14/2022 06/14/2012 COVID-19 Vaccine (2 2022-2 4 season) 2023 10/28/2020 Influenza Vaccine [...] as of this encounter Visit Diagnoses Diagnosis Stroke-like symptoms- Primary Other symptoms involving nervous and musculoskeletal systems Hospital discharge follow-up Other follow-up examination documented in this encounter Care Teams Garden Machinery Mechanic Relationship Specialty Start Date End Date Awais Major MD [address] [place] [address] [place] [phone] PCP - General Family Medicine 02/10/21 documented as of this encounter
--- OUTSIDE RECORDS SUMMARY | 2023-11-23 00:54 | External Medical Summary ---
Author Name Unknown Address Unknown Organization [id number]:LABORATORY [facility] [place] - [address] [place] [address] Laboratory Report Ordering Provider Test Date Status ALETHEA BLUMKelly 06/02/2023 08:54:04 Final Observation Date Value Abnormality Reference (Units ) Status SYNC LEUKOCYTES IN BLOOD BY AUTOMATED COUNT 06/02/2023 08:54:04 4.53 4.00-10.80 (K/uL) Final Segs 06/02/2023 08:54:04 57.4 40.0-75.0 (%) Final Lymphs % 06/02/2023 08:54:04 27.8 18.0-42.0 (%) Final Monos 06/02/2023 08:54:04 10.4 1.0-11.0 (%) Final Eosinophils 06/02/2023 08:54:04 2.6 0.0-6.0 (%) Final Basos 06/02/2023 08:54:04 0.9 0.0-2.0 (%) Final Immature Granulocyte, Percent 06/02/2023 08:54:04 0.9 0.0-2.0 (%) Final Absolute Segs 06/02/2023 08:54:04 2.60 1.80-7.70 (K/uL) Final Lymphs, absolute 06/02/2023 08:54:04 1.26 1.00-4.80 (K/ul) Final Monos, Abs 06/02/2023 08:54:04 0.47 0.00-1.10 (K/uL) Final Eos, Abs 06/02/2023 08:54:04 0.12 0.00-0.70 (K/uL) Final Basos, Abs 06/02/2023 08:54:04 0.04 0.00-0.20 (K/uL) Final Immature Granulocytes, Number 06/02/2023 08:54:04 0.04 0.00-0.20 (K/uL) Final Performing Location LABORATORY [facility] [place] - [address] [place], [place] [address]
--- OUTSIDE RECORDS SUMMARY | 2023-11-23 00:54 | External Medical Summary ---
Author Name Unknown Address Unknown Organization [id number]:[facility] [place] - [address] [facility] [address] [facility] [address] Laboratory Report Ordering Provider Test Date Status MOREHUMPHREY 07/09/2023 12:16:56 Final Observation Date Value Abnormality Reference (Units) Status LUPUS INTERPRETATION BY PATHOLOGIST 07/09/2023 12:16:56 Negative for Lupus Anticoagulant (LA) and antiphospholipid antibodies. Final LUPUS INTERPRETATION BY PATHOLOGIST 07/09/2023 12:16:56 Final LUPUS INTERPRETATION BY PATHOLOGIST 07/09/2023 12:16:56 Clinical: 43 year-old male. No history of unprovoked thrombosis found on review of electronic medical record. Final HEMATOLOGY PATHOLOGIST 07/09/2023 12:16:56 Dr. Valdemar Case MD Final Performing Location LAB[facility]ATORY [facility] [place] - [address] [facility] [place] [address]
--- OUTSIDE RECORDS SUMMARY | 2023-11-23 00:54 | External Medical Summary ---
Author Name Unknown Address Unknown Organization [id number]:LABORATORY [facility] - [address] [place] [address] Laboratory Report Ordering Provider Test Date Status RAMEZ BLUM 06/02/2023 08:54:04 Final Observation Date Value Abnormality Reference (Units ) Status Magnesium 06/02/2023 08:54:04 2.1 1.5-2.6 (m g/dL) Final Performing Location LABORATORY [facility] - [address] [place] [address]
--- OUTSIDE RECORDS SUMMARY | 2023-11-23 00:54 | External Medical Summary | Summary of Care ---
Author Name Unknown Organization [facility] Address [address] [place] [address] Phone [phone] Care Team Providers Care Information Consultant Name Role Phone Awais Major MD Primary Care Provide r Reason for Referral * Evaluate & Treat - Unlimited Visits (Within 10 days (routine)) - Pending Review Specialty Diagnoses / Procedures Referred By Denzel cook Referred To Contact Hematology/Oncology / Hematology Oncology Diagnoses Stroke-like symptoms Prachi Sheikh PA-C [address] [place] [address] [place] [phone] Referral ID Status Reason Start Date Expiration Date Visits Requested Visits Authorized [id number] Pending Review Specialty Services Required 06/02/2023 999 [...] 8:00 AM EST Office Visit Family Medicine [address] [place] [phone] Prachi Sheikh PA-C [address] [place] [address] [place] [phone] Stroke-like symptoms*; Hospital discharge follow-up Allergies Active [...] ok. Pt was to be transferred to [facility] for MRI but they couldn't get him until the next day. ended up taking him to [facility]. Nothing acute found on scans. Pt was to FU with neuro and psych upon discharge. He has canceled every neuro appt that has been set up. He doesn't have any appt, at this time. It looks like he did have a psych consult with [facility] physician. MRI was normal. AL was normal. [...] Time to Remove: 8:48 am Serial Number: [id number] Ordering Provider: prachi sheikh Results: prachi sheikh LPN Zio patch applied in clinic, as per provider orders. * Maddy Blackman LPN - 06/02/2023 8:12 AM EST Follow up from hospital. documented in this encounter Plan of Treatment Pending Results Name Type Priority Associated Diagnoses Date /Time CBC WITH WBC DIFFERENTIAL AND ANEMIA REFLEX WORKUP Lab Routine Stroke-like symptoms 06/02/2023 8:54 AM EST COMPREHENSIVE METABOLIC PANEL Lab Routine Stroke-like symptoms 06/02/2023 8:54 AM EST MAGNESIUM Lab Routine Stroke-like symptoms 06/02/2023 8:54 AM EST PHOSPHORUS Lab Routine Stroke-like symptoms 06/02/2023 8:54 AM EST Scheduled Orders Name Type Priority Associated Diagnoses [...] examination documented in this encounter Care Teams Information Consultant Relationship Specialty Start Date End Date Awais Major MD [address] [place] [address] [place] [phone] PCP - General Family Medicine 02/10/21 documented as of this encounter
--- OUTSIDE RECORDS SUMMARY | 2023-11-23 00:54 | External Medical Summary | Summary of Care ---
Author Name Unknown Organization [facility] Address [address] [place] [address] Phone [phone] Care Team Providers Care Poultry Farmer Egg Name Role Phone Awais Major MD Primary Care Provide r Reason for Visit * Reason Comments Outpatient Testing Encounter Details Date Type Department Care Team (Late st Contact Info) Description 07/09/2023 12:50 PM EST Laboratory Laboratory [facility] [place] [place] [address] [place] [phone] 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 Paranoid disorder 02/10/2021 Anxiety 02/10/2021 ADHD (attention deficit hype ractivity disorder), combined type 02/10/2021 Lipoma 02/10/2021 documented as of this encounter (statuses as of 07/09/2023) Immunizations Name Administration Dates Next Due Covid-19 [...] as of this encounter Plan of Treatment Pending Results Name Type Priority Associated Diagnoses Date /Time LUPUS ANTICOAGULANT PROFILE WITH INTERPERTATION BY PATHOLOGIST Lab Routine History of TIA (transient ischemic attack) 07/09/2023 12:16 PM EST LUPUS SENSITIVE APTT SCREEN Lab Routine History of TIA (transient ischemic attack) 07/09/2023 12:16 PM EST CARDIOLIPIN IGG ANTIBODY Lab Routine History of TIA (transient ischemic attack) 07/09/2023 12:16 PM EST COAGULATION INTERPRETATION BY PATHOLOGIST Lab Routine History of TIA (transient ischemic attack) 07/09/2023 12:16 PM EST CARDIOLIPIN IGM ANTIBODY Lab Routine History of TIA (transient ischemic attack) 07/09/2023 12:16 PM EST BETA-2 GLYCOPROTEIN IGG ANTIBODY Lab Routine History of TIA (transient ischemic attack) 07/09/2023 12:16 PM EST BETA-2 GLYCOPROTEIN IGM ANTIBODY Lab Routine History of TIA (transient ischemic attack) 07/09/2023 12:16 PM EST DILUTE TOMEKA VIPER VENOM TIME (DRVVT) SCREEN Lab Routine History of TIA (transient ischemic attack) 07/09/2023 12:16 PM EST Health Maintenance Due Date Last Done Comments [...] Diagnoses Diagnosis History of TIA (transient ischemic attack) Transient ischemic attack (TIA), and cerebral infarction without residual deficits documented in this encounter Care Teams Poultry Farmer Egg Relationship Specialty Start Date End Date Awais Major MD [address] [place] [address] [place] [phone] PCP - General Family Medicine 02/10/21 documented as of this encounter
--- OUTSIDE RECORDS SUMMARY | 2023-11-23 00:54 | External Medical Summary ---
Author Name Unknown Address Unknown Organization K01:[facility] [place] [address] [place] [address] Laboratory Report Ordering Provider Test Date Status HUMPHREY AGUERO 07/09/2023 12:16:56 Final Observation Date Value Abnormality Reference (Units ) Status dRVVT induced actual/Normal 07/09/2023 12:16:56 0.70 <=1.20 Final Lupus Anticoagulant not dete cted. Performing Location LABORATORY [facility] - [address] [place] [address]
--- OUTSIDE RECORDS SUMMARY | 2023-11-23 00:54 | External Medical Summary ---
Author Name Unknown Address Unknown Organization K01:LABORATORY [place] [address] [place] [address] Laboratory Report Ordering Provider Test Date Status HUMPHREY AGUERO 07/09/2023 12:16:56 Final Anticardiolipin / beta-2 gly coprotein antibodies must be detected on 2 or more occasions at least 12 weeks apart to fulfill the laboratory diagnostic criteria for Antiphospholipid Syndrome. Observation Date Value Abnormality Reference (Units ) Status Cardiolipin IgG Ab [Presence] in Serum by Immunoassay 07/09/2023 12:16:56 Negative Negative Final Cardiolipin IgG Ab [Units/volume] in Serum by Immunoassay 07/09/2023 12:16:56 <0.5 <10 (GPL U/mL) Final Performing Location [facility] [place] [facility] [place] [address]
--- OUTSIDE RECORDS SUMMARY | 2023-11-23 00:54 | External Medical Summary | Summary of Care ---
Author Name Unknown Organization [facility] Address [address] [place] [address] Phone [phone] Care Team Providers Care Accelerator Technician Name Role Phone Awais Major MD Primary Care Provide r Reason for Visit * Reason Onset Date Comments Appointment 06/17/2023 Encounter Details Date Type Department Care Team (Late st Contact Info) Description 06/17/2023 Telephone Hematology/Oncology [facility] [address] [place] [address] Alexus Hutchinson CRNP [address] [place] [address] Appointment Allergies Active Allergy Reactions [...] 06/17/2023 1:00 PM EST Office Visit Hematology/Oncology [facility] [address] [facility] [place] [address] Alexus Hutchinson CRNP [address] [place] [address] [place] [phone] 07/09/2023 11:20 AM EST Office Visit Neurology [facility] [address] [facility] [place] [address] Raquel Dickerson PA-C [address] [facility] [place] [address] Health Maintenance Due Date Last Done Comments [...] filedocumented as of this encounter Care Teams Accelerator Technician Relationship Specialty Start Date End Date Awais Major MD [address] [place] [address] [place] [phone] PCP - General Family Medicine 02/10/21 documented as of this encounter
--- OUTSIDE RECORDS SUMMARY | 2023-11-23 00:54 | External Medical Summary | Summary of Care ---
Author Name Unknown Organization [facility] Address [address] [place] [address] Phone [phone] Care Team Providers Care Rn Case Manager Hospice Name Role Phone Awais Major MD Primary Care Provide r Reason for Visit * Reason Onset Date Comments Appointment 06/17/2023 Encounter Details Date Type Department Care Team (Late st Contact Info) Description 06/17/2023 Telephone Hematology/Oncology [facility] [address] [place] [address] Alexus Hutchinson CRNP [address] [place] [address] Appointment Allergies Active Allergy Reactions [...] 06/17/2023 1:00 PM EST Office Visit Hematology/Oncology [facility] [address] [facility] [place] [address] Alexus Hutchinson CRNP [address] [place] [address] [place] [phone] 07/09/2023 11:20 AM EST Office Visit Neurology [facility] [address] [facility] [place] [address] Raquel Dickerson PA-C [address] [facility] [place] [address] Health Maintenance Due Date Last Done Comments [...] filedocumented as of this encounter Care Teams Rn Case Manager Hospice Relationship Specialty Start Date End Date Awais Major MD [address] [place] [address] [place] [phone] PCP - General Family Medicine 02/10/21 documented as of this encounter
--- OUTSIDE RECORDS SUMMARY | 2023-11-23 00:54 | External Medical Summary | Summary of Care ---
Author Name Unknown Organization [facility] Address [address] [place] [address] Phone [phone] Care Team Providers Care Crop Picker Name Role Phone Awais Major MD Primary Care Provide r Reason for Visit * Reason Comments Consultation * Evaluate & Treat - Unlimited Visits (Within 10 days (routine)) - Pending Review Specialty Diagnoses / Procedures Referred By Contact Referred To Contact Cardiovascular Medicine / Cardiology Diagnoses Bradycardia Sonia Sheikh PA-C [address] [place] [address] [place] [phone] Referral ID Status Reason Start Date Expiration Date Visits Requested Visits Authorized [id number] Pending Review Specialty Services Required 06/17/2023 999 999 Encounter Details Date Type Department Care Team (Late st Contact Info) Description 07/29/2023 9:00 AM EDT [facility] [place] [address] Alexander William, [facility] [place] [phone] History of TIA (transient ischemic attack)* Allergies Active Allergy Reactions Criticality Noted Date Comments Neomycin-Bacitracin Zn-Polymyx Rash 03/25 documented as of this encounter (statuses as of 07/29/2023) Medications Medication Sig Dispensed Refills Start Date [...] as of this encounter (statuses as of 07/29/2023) Active Problems Problem Noted Date Diagnosed Date Gastroesophageal reflux disease without esophagi tis 04/22/2022 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 Paranoid disorder 02/10/2021 Anxiety 02/10/2021 ADHD (attention deficit hype ractivity disorder), combined type 02/10/2021 Lipoma 02/10/2021 documented as of this encounter (statuses as of 07/29/2023) Immunizations Name Administration Dates Next Due Covid-19 [...] Sign Reading Time Taken Comments Blood Pressure 114/74 07/29/2023 9:03 AM EDT Pulse 58 07/29/2023 9:03 AM EDT Temperature - - Respiratory Rate - - Oxygen Saturation - - Inhaled Oxygen Concentration - - Weight 81.6 kg (180 lb) 07/29/2023 9:03 AM EDT Height - - Body Mass Index 25.1 03/19/2023 9:46 AM EST documented in this encounter Progress Notes * Alexander William, DO - 07/29/2023 9:14 AM EDT Cardiology Outpatient Consultation Ralph Trinidad Jr. is a 43 year old male referred by Awais Major MD who is seen in consultation for TIA. HPI: This is a 43-year-old male patient with no previous cardiac history. Over the he had the sudden onset of left-sided weakness. He was 1st seen at [facility] and then went [facility] where he had a complete workup including an MRI that did not show any significant ischemic events. During that admission he was kept on telemetry monitoring without any significant arrhythmias. He also had a transesophageal echocardiogram of which the report is on the chart and essentially unremarkable. He fully recovered from the above event and has returned to work. As an outpatient he hada Zio monitor failed to show any significant arrhythmias with appropriate heart rates. He has no com plaints today. 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 Social History Tobacco Use Smoking status: Never Smokeless tobacco: Current Types: Chew Vaping Use Vaping Use: Never used Substance Use Topics Alcohol use: Yes Drug use: No Review of patient's allergies indicates: Allergen Reactions Neosporin [Neomycin-Bacitracin Zn-Polymyx] Rash Current Outpatient Medications Medication Sig Dispense Refill Pantoprazole Sodium 40 MG Oral Tablet Delayed Release (Protonix) TAKE 1 TABLET IN THE MORNING 30 MINUTES BEFORE THE FIRST MEAL OF THE DAY. DO NOT CRUSH, SPLIT OR CHEW THE TABLET. 90 Tablet 1 Citalopram Hydrobromide 40 MG Oral Tablet (CeleXA) Take 1 Tablet by mouth in the morning. In the morning.. 30 Tablet 2 Atorvastatin Calcium 40 MG Oral Tablet (Lipitor) Take 1 Tablet by mouth in the morning. 30 Tablet 2 Aspirin Low Dose 81 MG Oral Tablet Delayed Release (aspirin enteric coated) TAKE ONE TABLET BY MOUTH IN THE MORNING 30 Tablet 2 Tamsulosin HCl 0.4 MG Oral Capsule (Flomax) Take 1 Capsule by mouth in the morning. (Patient not taking: Reported on 06/17/2023) 7 Capsule 0 Naproxen 500 MG Oral Tablet (Naprosyn) Take 1 Tablet by mouth 2 times a day with morning and evening meals. (Patient not taking: Reported on 07/09/2023) 20 Tablet 0 No current facility-administered medications for this visit. ROS: Review of Systems: See HPI for pertinent positives. All other review of systems is negative. PHYSICAL EXAMINATION BP 114/74 | Pulse 58 | Wt 81.6 kg (180 lb) | BMI 25.10 kg/m | BSA 2.02 m Body mass index is 25.1 kg/m. General: no acute distress and stated age Head: normocephalic, no masses, lesions, tenderness or abnormalities Eyes: conjunctiva are pink and non-injected, sclera clear Neck: supple, no adenopathy, no bruits, normal jugular venous pulse, no hepatojugular reflux Chest: normal shape and normal respiratory effort Lungs: clear to auscultation and percussion Cardiac Exam: - regular rate & rhythm, no murmurs gallops or rubs - normal S1, normal S2 Pulses: 2(+) throughout Abdomen: abdomen soft, non-tender, no abnormal masses and no hepatosplenomegaly Musculoskeletal: no gait disturbance, no joint inflammation, no deforming arthritis Extremities: no edema and no cyanosis Neuro: grossly normal exam Laboratory Data Review: EKG today reveals a sinus bradycardia and is otherwise within normal limits Impression: 1. TIA Plan: The patient is fully recovered from his TIA. I agree with treating him with antiplatelet agents andcholesterol medications. At this point the workup has been unremarkable and I do not believe any additional cardiac testing is indicated. The patient will have follow-up with his PCP. This chart was completed in part utilizing [employer] Speech Voice Recognition Software. Grammatical errors, random word insertions, prounoun errors, and incomplete sentences are an occasional consequence of this system due to software limitations, ambient noise, and hardware issues. Any formal questions or concerns about the content, text, or information contained within the body of this dictation should be directly addressed to the provider for clarification. I spent a total of 40-54 minutes (exact time 42 mins) on the date of service in preparation, delivery, and documentation of the care provided to Sb Trinidad Jr. excluding any time spent in the performance of separately billed services. Alexander William DO Cardiology[address] [address] 07/29/2023 documented in this encounter Nursing Notes * Favio Staples RN - 07/29/2023 9:02 AM EDT Examination Room: room 16 Name: Sb Trinidad Jr. Date of : (1980). Reason for Visit: for new patient Interim Hospitalization(s):admitted to [facility] 05/[facility]2023 for 3 days Problems/Concerns: denies Chest Pain/SOB: denies [facility] Discussed: Not applicable [facility] is a way you can talk to your provider online through e-mail. Would you like to sign up? I can activate it for you? ALREADY ACTIVE Patient was instructed to not get up on the exam table until directed and assisted by their provider; patient is to remain seated in the chair/ wheelchair/ exam table for fall prevention and safety reasons. Patient is aware to have assistance to step down off exam table with personnel. Patient voiced full comprehension of instructions. documented in this encounter Plan of Treatment Scheduled Orders Name Type Priority Associated Diagnoses Orde r Schedule EKG COMPLETE (TRACING AND INTERP) EKG Routine History of TIA (transient ischemic attack) Ordered: 07/29/2023 Health Maintenance Due Date Last Done Comments Depression Screening 1991 HIV Screening 1994 Hepatitis C Screening 1997 Hepatitis B (1 of 3 - 19+ 3-dose series) 1998 DTaP,Tdap,and Td Vaccines (2 - Td or Tdap) 06/14/2022 06/14/2012 COVID-19 Vaccine (2 - 2022-2 4 season) 2023 10/28/2020 Influenza Vaccine (FLU shot) (#1) 2023 01/21/2022 Lipid Panel 02/11/2026 02/11/2021 Diabetes Screening [...] deficits documented in this encounter Care Teams Crop Picker Relationship Specialty Start Date End Date Awais Major MD [address] [place] [address] [place] [phone] PCP - General Family Medicine 02/10/21 documented as of this encounter"
--- OUTSIDE RECORDS SUMMARY | 2023-11-23 00:54 | External Medical Summary | Summary of Care ---
Author Name Unknown Organization [facility] Address [address] [facility] [address] Phone [phone] Care Team Providers Care Distillery Miller Helper Name Role Phone Awais Major MD Primary Care Provide r Reason for Visit * Reason Comments Outpatient Testing Encounter Details Date Type Department Care Team (Late st Contact Info) Description 06/02/2023 8:50 AM EST Laboratory Laboratory [address] [place] [phone] [address] [place] [address] Stroke-like symptoms Allergies Active Allergy Reactions Criticality Noted Date [...] as of this encounter Plan of Treatment Upcoming Encounters Date Type Department Care Team (Late st Contact Info) Description 07/09/2023 11:20 AM EST Office Visit Neurology [employer] [address] [facility] [place] [address] Raquel Dickerson PA-C [address] [facility] [place] [address] Pending Results Name Type Priority Associated Diagnoses Date /Time CBC WITH WBC DIFFERENTIAL AND ANEMIA REFLEX WORKUP Lab Routine Stroke-like symptoms 06/02/2023 8:54 AM EST COMPREHENSIVE METABOLIC PANEL Lab Routine Stroke-like symptoms 06/02/2023 8:54 AM EST MAGNESIUM Lab Routine Stroke-like symptoms 06/02/2023 8:54 AM EST PHOSPHORUS Lab Routine Stroke-like symptoms 06/02/2023 8:54 AM EST ANEMIA CBC Lab Routine Stroke-like symptoms 06/02/2023 8:54 AM EST DIFFERENTIAL, AUTOMATED Lab Routine Stroke-like symptoms 06/02/2023 8:54 AM EST ANEMIA REFLEX CHEMISTRY HOLD Lab Routine Stroke-like symptoms 06/02/2023 8:54 AM EST Health Maintenance Due Date Last Done [...] of this encounter Visit Diagnoses Diagnosis Stroke-like symptoms Other symptoms involving nervous and musculoskeletal systems documented in this encounter Care Teams Distillery Miller Helper Relationship Specialty Start Date End Date Awais Major MD [address] [place] [address] [place] [phone] PCP - General Family Medicine 02/10/21 documented as of this encounter
--- OUTSIDE RECORDS SUMMARY | 2023-11-23 00:54 | External Medical Summary | Summary of Care ---
Author Name Unknown Organization [facility] Address [address] [place] [address] Phone [phone] Care Team Providers Care Lot Associate Name Role Phone Awais Major MD Primary Care Provide r Reason for Visit * Reason Onset Date Comments Appointment 06/17/2023 Encounter Details Date Type Department Care Team (Late st Contact Info) Description 06/17/2023 Telephone Hematology/Oncology [facility] [address] [place] [address] Alexus Hutchinson CRNP [address] [place] [address] Appointment Allergies Active Allergy Reactions [...] 06/17/2023 1:00 PM EST Office Visit Hematology/Oncology [facility] [address] [facility] [place] [address] Alexus Hutchinson CRNP [address] [place] [address] JUAN PABLOJERSON [place] [phone] 07/09/2023 11:20 AM EST Office Visit Neurology [facility] [address] [facility] [place] [address] Raquel Dickerson PA-C [address] [facility] [place] [address] Health Maintenance Due Date Last Done Comments [...] filedocumented as of this encounter Care Teams Lot Associate Relationship Specialty Start Date End Date Awais Major MD [address] [place] [address] [place] [phone] PCP - General Family Medicine 02/10/21 documented as of this encounter
--- OUTSIDE RECORDS SUMMARY | 2023-11-23 00:54 | External Medical Summary ---
Author Name Unknown Address Unknown Organization K01:[facility] [place] [address] [place] [address] Laboratory Report Ordering Provider Test Date Status HUMPHREY AGUERO 07/09/2023 12:16:56 Final Anticardiolipin / beta-2 gly coprotein antibodies must be detected on 2 or more occasions at least 12 weeks apart to fulfill the laboratory diagnostic criteria for Antiphospholipid Syndrome. Observation Date Value Abnormality Reference (Units ) Status Beta 2 glycoprotein 1 IgM Ab [Presence] in Serum 07/09/2023 12:16:56 Negative Negative Final Beta 2 glycoprotein 1 IgM Ab [Units/volume] in Serum or Plasma by Immunoassay 07/09/2023 12:16:56 <2.4 <7 (U/mL) Final Performing Location LABORATORY [facility] [place] - [facility] [place] [address]
--- OUTSIDE RECORDS SUMMARY | 2023-11-23 00:54 | External Medical Summary | Summary of Care ---
Author Name Unknown Organization [facility] Address [address] [place] [facility] [place] [address] Phone [phone] Care Team Providers Care Rental Management Trainee Name Role Phone Awais Major MD Primary Care Provide r Reason for Visit * Reason Comments Hospital Follow-Up Hx of TIA Encounter Details Date Type Department Care Team (Late st Contact Info) Description 07/09/2023 11:20 AM EST Office Visit Neurology [facility] [place] [address] [place] [address] Raquel Dickerson PA-C [address] [place] [address] History of TIA (transient ischemic attack)*; Left-sided weakness Allergies Active Allergy Reactions Criticality Noted Date [...] Sign Reading Time Taken Comments Blood Pressure 128/76 07/09/2023 11:40 AM EST Pulse 63 07/09/2023 11:40 AM EST Temperature 35.7 C (96.3 F) 07/09/2023 11:[address] Respiratory Rate - - Oxygen Saturation 98% 07/09/2023 11:40 AM EST Inhaled Oxygen Concentration - - Weight 79.8 kg (176 lb) 07/09/2023 11:40 AM EST Height - - Body Mass Index 24.55 03/19/2023 9:46 AM EST documented in this encounter Progress Notes * Raquel Dickerson PA-C - 07/09/2023 11:40 AM EST HISTORY & PHYSICAL EXAMINATION - NEUROLOGY Name: Sb Trinidad Jr. Date: 07/09/2023 Time: 11:40 AM Referring Provider: Enzo Chaudhry, * Chief Complaint: Chief Complaint Patient presents with Hospital Follow-Up Hx of TIA This is a 43 year old right handed gentleman returns today for follow up for TIA. HPI & Source of HPI The patient and spouse was the historian, and they are reliable. He presented to 05/03/23 for possible fever and a severe headache and noted slurring of speechand left facial asymmetry and left sided weakness. He went to [facility] where it is reported he had a CT scan revealing possible left temporal lobe lesion. He was informed hewould not undergo MRI immediately so he was reportedly signed out AMA and was driven to [facility] where he was hospitalized. An MRI brain performed both with and without contrast was unrevealing for evidence of ongoing intracranial pathology. He had a CTA head and neck, TTE and as out patient he wore a ZIO x 7 days. He did have an appointment with cards but had to cancel it. Hesaw hem/onc to follow up on a possible clotting disorder. He did have covid 2 weeks prior to this event. He does not eat healthy (a lot of Small Demons) but he and his are working on changing their diet. He is a non smoker of chews snuff, moderate was heavy caffeine use no other drugs. Denies CP, SOB, abdominal pain, N, V. I have reviewed the patient's medications and allergies, past medical, surgical, social and family history, updating these as appropriate. See Histories section of the electronic medical record for adisplay of this information. 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 Medications: Are you taking your medications? yes Current Outpatient Medications Medication Sig Dispense Refill [...] No current facility-administered medications for this visit. Review of patient's allergies indicates: Allergen Reactions Neosporin [Neomycin-Bacitracin Zn-Polymyx] Rash Review of Systems: A total number of 10 systems were reviewed pertinent negative and positives not addressed in HPI are listed in the following review. Physical Exam: Constitutional: BP 128/76 (BP Site: Right Arm, BP Position: Sitting, BP Cuff Size: Regular) | Pulse63 | Temp 35.7 C (96.3 F) (Tympanic) | Wt 79.8 kg (176 lb) | SpO2 98% | BMI 24.55 kg/m | BSA 2 m , appearance nourished, healthy, and normal Ears, Nose, Mouth and Throat: mucous membranes moist, no injection and skin normal, eyes normal Cardiovascular: normal S-1 and S-2 and regular rate and rhythm Respiratory: clear to auscultation (CTA) and no rales, ronchi or wheeze Musculoskeletal: no peripheral edema Skin: normal and intact Eyes: extraocular muscles intact (EOMI) and pupils equal, round and reactive to light (PERRL) NEUROLOGIC EXAMINATION: Mental status: Alert and interactive Oriented to full date and location Oriented to person Speech fluent with no evidence of aphasia Cranial Nerves Normal findings for Cranial Nerves II - XII Reflexes: Deep tendon reflexes were symmetrical and graded 2/5. Sensory: no sensory deficits Coordination: on [id number] Gait/Stance: Posture normal. Gait normal: with steady with steps, base, and arm swing. Motor: Negative for pronator drift of out stretched arms with eyes closed. Strength: Normal - 5/5 all extremities LABORATORY: Recent labs reviewed Review of prior Studies: MRI brain-No evidence of acute intracranial pathology. CTA head/neck-No acute intracranial hemorrhage, evidence of acute territorial infarction, or other acute intracranial disease process. No occlusion, hemodynamically significant stenosis, or dissection in the major cervical arteries. No occlusion, hemodynamically significant stenosis, aneurysm, disse ction, or arteriovenous malformation in the major intracranial arteries. Impression: Sb Trinidad Jr. is a 43 year old gentleman with a history of TIA. His neurologic examination today reveals no new focal deficit. The history and examination are suggestive of diagnosis/problem list. Testing and Referrals ordered: none ICD-10-CM 1. History of TIA (transient ischemic attack) Z86.73 2. Left-sided weakness R53.1 Return as needed Optimize HTN HDL LDL <70 Continue aspirin 81 mg for life Hem/onc follow as needed Cards follow up as needed PCP for medical management- if muscle cramping continues would evaluate for lyte imbalances Healthy diet and exercise- stop chewing tobacco Call with questions concerns. Medical Decision Making (determined by lowest of 2 of 3 elements): The medical decision making element of the number and complexity of problems addressed included at least 2 or more stable chronic illnesses (level 4). The medical decision making element of risk of complications, morbidity, and mortality of patient management is moderate (level 4) due to prescription drug management (moderate risk). The medical decision making element of the amount and complexity of data reviewed and analyzed included an independent interpretation of a test (level 4 at least). When 2 of 3 reach level 4, then this element is considered extensive (level 5). I personally spent a total of 30 minutes. This time was for a new office or established visit and was on the same calendar day. Education / Consultation - Topics covered as I spent 20 minutes, which is greater than 50% of this visit, counseling the patient on: Diagnostic Results Prognosis Importance of compliance with chosen treatment options Risk factor reductions Patient and family education Consulted with physician: Sb Paul MD was available for direct supervision. Copy of note sent toPCP and Referring Provider. Total time of visit: 30 minutes. Raquel Dickerson PA-C Neurology [facility] [address] [place] [address] 07/09/2023 11:40 AM documented in this encounter Nursing Notes * Ciara Fisher LPN - 07/09/2023 11:39 AM EST Patient verified identity by spelling of last name and date. Chief Complaint Patient presents with Hospital Follow-Up Hx of TIA Pt was in [facility] 04/2023 for TIA documented in this encounter Plan of Treatment Upcoming Encounters Date Type Department Care Team (Late st Contact Info) Description 07/09/2023 12:50 PM EST Laboratory Laboratory [facility] [place] [address] [place] [phone] [address] [facility] [place] [address] [address] [facility] [place] [address] History of TIA (transient ischemic attack) Health Maintenance Due Date Last Done Comments [...] (TIA), and cerebral infarction without residual deficits Left-sided weakness Muscle weakness (generalized) History of TIA (transient ischemic attack) Transient ischemic attack (TIA), and cerebral infarction without residual deficits documented in this encounter Care Teams Rental Management Trainee Relationship Specialty Start Date End Date Awais Major MD [address] [place] [address] [place] [phone] PCP - General Family Medicine 02/10/21 documented as of this encounter"
--- OUTSIDE RECORDS SUMMARY | 2023-11-23 00:54 | External Medical Summary | Summary of Care ---
Author Name Unknown Organization [facility] Address [address] [place] [address] Phone [phone] Care Team Providers Care A P Supervisor Name Role Phone Awais Major MD Primary Care Provide r Reason for Visit * Reason Comments Acute Encounter Details Date Type Department Care Team (Late st Contact Info) Description 05/26/2023 5:40 PM EST Office Visit Family Medicine [address] [phone] Awais Major MD [address] [place] [address] [place] [phone] Acute cystitis with hematuria*; Dysuria; History of kidney stones; Anxiety; Paranoid disorder (HCC) Allergies Active Allergy Reactions Criticality Noted Date Comments Neomycin-Bacitracin Zn-Polymyx Rash 03/25 documented as of this encounter (statuses as of 05/27/2023) Medications Medication Sig Dispensed Refills Start Date End Date Status Pantoprazole Sodium 40 MG Oral Tablet Delayed Release (Protonix)Indicatio ns:Gastroesophageal reflux disease without esophagitis TAKE 1 TABLET IN THE MORNING 30 MINUTES BEFORE THE FIRST MEAL OF THE DAY. DO NOT CRUSH, SPLIT OR CHEW THE TABLET. 90 Tablet 1 05/01/2023 Active Sulfamethoxazole-Tr imethoprim 800-160 MG Oral Tablet (Bactrim DS)Indications:Acut e cystitis with hematuria Take 1 Tablet by mouth in the morning and 1 Tablet before bedtime. Do all this for 7 days. Until gone. 14 Tablet 0 05/26/2023 06/02/2023 Active Tamsulosin HCl 0.4 MG Oral Capsule (Flomax)Indications :History of kidney stones Take 1 Capsule by mouth in the morning. 7 Capsule 0 05/26/2023 Active Citalopram Hydrobromide 40 MG Oral Tablet (CeleXA)Indications :Anxiety Take 1 Tablet by mouth in the morning. In the morning.. 30 Tablet 2 05/26/2023 Active Naproxen 500 MG Oral Tablet (Naprosyn)Indicatio ns:Acute cystitis with hematuria,History of kidney stones Take 1 Tablet by mouth 2 times a day with morning and evening meals. 20 Tablet 0 05/26/2023 Active predniSONE 20 MG Oral Tablet (Deltasone)Indicati ons:Bronchitis, complicated 1 tab 3 times a day for 3 days, then 1 tab 2 times a day for 3 days, then 1 tab daily for 3 days 18 Tablet 0 03/19/2023 05/26/2023 Discontinued (Patient preference/d iscontinuati on) Azithromycin 250 MG Oral Tablet (Zithromax Z-Tomas)Indications:B ronchitis, complicated Take two tablets by mouth on first day, then 1 tablet daily until gone 6 Tablet 0 03/19/2023 05/26/2023 Discontinued (Medication/ Dose Changed) Citalopram Hydrobromide 20 MG Oral Tablet (CeleXA)Indications :Anxiety TAKE ONE TABLET BY MOUTH IN THE MORNING 90 Tablet 1 05/01/2023 05/26/2023 Discontinued (Refill) documented as of this encounter (statuses as of 05/27/2023) Active Problems Problem Noted Date Diagnosed Date Gastroesophageal reflux disease without esophagi tis 04/22/2022 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 Paranoid disorder 02/10/2021 Anxiety 02/10/2021 ADHD (attention deficit hype ractivity disorder), combined type 02/10/2021 Lipoma 02/10/2021 documented as of this encounter (statuses as of 05/27/2023) Immunizations Name Administration Dates Next Due Covid-19 [...] Sign Reading Time Taken Comments Blood Pressure 132/94 05/26/2023 5:48 PM EST Pulse 74 05/26/2023 5:48 PM EST Temperature 36.1 C (96.9 F) 05/26/2023 5:48 PM ES T Respiratory Rate - - Oxygen Saturation 96% 05/26/2023 5:48 PM EST Inhaled Oxygen Concentration - - Weight 80 kg (176 lb 6.4 oz) 05/26/2023 5:48 PM EST Height - - Body Mass Index 24.6 03/19/2023 9:46 AM EST documented in this encounter Progress Notes * Awais Major MD - 05/26/2023 5:42 PM EST Subjective: HPI: Sb Trinidad . 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 20 Tablet 0 No current facility-administered medications for this visit. 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 Social History Tobacco Use Smoking status: Never Smokeless tobacco: Current Types: Chew Substance Use Topics Alcohol use: Yes Vaping/E-Cigarette Use Vaping/E-Cigarette Substances Vaping/E-Cigarette Devices ROS: -Per HPI OBJECTIVE: BP 132/94 | Pulse 74 | Temp 36.1 C (96.9 F) | Wt 80 kg (176 lb 6.4 oz) | SpO2 96% | BMI 24.60 kg/m | BSA 2 m PHYSICAL EXAM: Mild CVA tenderness on the L side ASSESSMENT/PLAN: Pt appeared well on exam therefore no need for urgent imaging at this time - will do NSAID, flomax for possible kidney stone - bactrim for possible UTI Increased the celexa dose Acute cystitis with hematuria (Primary) - Sulfamethoxazole-Trimethoprim 800-160 MG Oral Tablet (Bactrim DS); Take 1 Tablet by mouth in the morning and 1 Tablet before bedtime. Do all this for 7 days. Until gone. - Naproxen 500 MG Oral Tablet (Naprosyn); Take 1 Tablet by mouth 2 times a day with morning and evening meals. Dysuria - URINALYSIS, POINT OF CARE (ENTER/EDIT) - CULTURE, URINE, QUANTITATIVE - URINALYSIS WITH MICROSCOPIC EXAM History of kidney stones - Tamsulosin HCl 0.4 MG Oral Capsule (Flomax); Take 1 Capsule by mouth in the morning. - Naproxen 500 MG Oral Tablet (Naprosyn); Take 1 Tablet by mouth 2 times a day with morning and evening meals. Anxiety - Citalopram Hydrobromide 40 MG Oral Tablet (CeleXA); Take 1 Tablet by mouth in the morning. In themorning.. Paranoid disorder (HCC) - symptoms are stable - used to see psych Awais Major MD [facility] medicine[address] [address] documented in this encounter Nursing Notes * Smita Randall CMA - 05/26/2023 5:45 PM EST He is here for back pain that goes down his legs. He does have urinary urgency. He is worried abouta kidney stone. documented in this encounter Plan of Treatment Upcoming Encounters Date Type Department Care Team (Late st Contact Info) Description 06/02/2023 8:00 AM EST Office Visit Family Medicine [address] [phone] Sonia Sheikh PA-C [address] [place] [address] [place] [phone] Pending Results Name Type Priority Associated Diagnoses Date/Time URINALYSIS, POINT OF CARE (ENTER/EDIT) Point of Care Testing Routine Dysuria 05/26/2023 CULTURE, URINE, QUANTITATIVE Lab Routine Dysuria 05/26/2023 6:14 PM EST URINALYSIS WITH MICROSCOPIC EXAM Lab Routine Dysuria 05/26/2023 6:14 PM EST Health Maintenance Due Date Last [...] as of this encounter Visit Diagnoses Diagnosis Acute cystitis with hematuria- Primary Acute cystitis Dysuria History of kidney stones Personal history of urinary calculi Anxiety Anxiety state, unspecified Paranoid disorder (HCC) Delusional disorder documented in this encounter Care Teams A P Supervisor Relationship Specialty Start Date End Date Awais Major MD [address] [place] [address] [place] [phone] PCP - General Family Medicine 02/10/21 documented as of this encounter"
--- OUTSIDE RECORDS SUMMARY | 2023-11-23 00:54 | External Medical Summary ---
Author Name Unknown Address Unknown Organization K01:[facility] [place] [address] [address] Laboratory Report Ordering Provider Test Date Status HUMPHREY AGUERO 07/09/2023 12:16:56 Final Anticardiolipin / beta-2 gly coprotein antibodies must be detected on 2 or more occasions at least 12 weeks apart to fulfill the laboratory diagnostic criteria for Antiphospholipid Syndrome. Observation Date Value Abnormality Reference (Units ) Status Cardiolipin IgM Ab [Presence] in Serum by Immunoassay 07/09/2023 12:16:56 Negative Negative Final Cardiolipin IgM Ab [Units/volume] in Serum by Immunoassay 07/09/2023 12:16:56 <0.9 <10 (MPL U/mL) Final Performing Location LABORATORY [facility] [place] - [facility] [place] [address]
--- OUTSIDE RECORDS SUMMARY | 2023-11-23 00:54 | External Medical Summary ---
Author Name Unknown Address Unknown Organization K01:[facility] [place] [address] [place] [address] Laboratory Report Ordering Provider Test Date Status RAMEZ BLUM 06/02/2023 08:54:04 Final Observation Date Value Abnormality Reference (Units ) Status WBC, Total 06/02/2023 08:54:04 4.53 4.00-10.8 0 (K/uL) Final RBC 06/02/2023 08:54:04 4.93 4.50-5.25 (M/uL) Final Hemoglobin 06/02/2023 08:54:04 14.2 14.0-16.8 (g/dL) Final Anemia reflex testing trigge rs on a HGB < 12.0 for Females and HGB < 13.0 for Males in accordance with the WHO Anemia Guidelines
Anemia reflex testing triggers on a HGB < 12.0 for Females and HGB < 13.0 for Males in accordance with the WHO Anemia Guidelines HCT 06/02/2023 08:54:04 45.0 40.0-48.4 (%) Final MCV 06/02/2023 08:54:04 91.3 82.0-99.5 (fL) Final MCH 06/02/2023 08:54:04 28.8 27.0-34.0 (pg) Final MCHC 06/02/2023 08:54:04 31.6 32.0-36.0 (g/dL) Final RDW 06/02/2023 08:54:04 14.2 11.5-15.5 (%) Final Platelets 06/02/2023 08:54:04 255 140-400 (K /uL) Final MPV 06/02/2023 08:54:04 10.9 6.6-11.1 ( fL) Final Nucleated erythrocytes/100 leukocytes [Ratio] in Blood by Automated count 06/02/2023 08:54:04 0 <=0 (/100 WBCs) [facility] Performing Location LABORATORY [facility] - [address] [facility] [address]
--- OUTSIDE RECORDS SUMMARY | 2023-11-23 00:54 | External Medical Summary ---
Author Name Unknown Address Unknown Organization K01:[facility]ORY [facility] [place] [address] [place] [address] Laboratory Report Ordering Provider Test Date Status HUMPHREY AGUERO 07/09/2023 12:16:56 Final Observation Date Value Abnormality Reference (Units ) Status aPTT.lupus sensitive actual/normal (normalized LA screen) 07/09/2023 12:16:56 1.35 0.91-1.40 Final Lupus Anticoagulant not dete cted. Performing Location LAB[facility]ATORY [facility] [place] [address] [place] [address]
--- OUTSIDE RECORDS SUMMARY | 2023-11-23 00:55 | External Medical Summary ---
Author Name Unknown Address Unknown Organization K01:[facility] [place] [address] [facility] [address] Laboratory Report Ordering Provider Test Date Status SUSAN DUONG 05/26/2023 18:14:00 Kriss l Observation Date Value Abnormality Reference (Units ) Status Color of Urine by Auto 05/26/2023 18:14:00 Yellow Colorless, Light Yellow, Yellow, Dark Yellow Final Clarity, Urine 05/26/2023 18:14:00 Cloudy Abnormal Clear Final Glucose [Mass/volume] in Urine by Automated test strip 05/26/2023 18:14:00 Negative Negative (mg/dL) Final Bilirubin.total [Presence] in Urine by Automated test strip 05/26/2023 18:14:00 Negative Negative Final Ketones [Mass/volume] in Urine by Automated test strip 05/26/2023 18:14:00 Negative Negative (mg/dL) Final Specific gravity, Urine 05/26/2023 18:14:00 1.019 1.003-1.030 Final Hemoglobin [Presence] in Urine by Automated test strip 05/26/2023 18:14:00 Small Abnormal Negative Final pH, Urine 05/26/2023 18:14:00 6.5 5.0-7.5 (Units) Final Protein [Mass/volume] in Urine by Automated test strip 05/26/2023 18:14:00 30 Abnormal Negative (mg/dL) Final Urobilinogen [Mass/volume] in Urine by Automated test strip 05/26/2023 18:14:00 Normal Normal (mg/dL) Final Nitrite [Presence] in Urine by Automated test strip 05/26/2023 18:14:00 Positive Abnormal Negative Final Leukocyte esterase [Presence] in Urine by Automated test strip 05/26/2023 18:14:00 Large Abnormal Negative Final RBC, Urine 05/26/2023 18:14:00 6-9 Abnormal 0-2 (/HPF) Final WBC, Urine 05/26/2023 18:14:00 50+ Abnormal 0-2 (/HPF) Final Bacteria [#/area] in Urine sediment by Microscopy high power field 05/26/2023 18:14:00 51-100 Abnormal 0-25 (/HPF) Final Performing Location [facility] [place] [facility] [address] [facility] [address]
--- OUTSIDE RECORDS SUMMARY | 2023-11-23 00:55 | External Medical Summary ---
Author Name Unknown Address Unknown Organization K01:[facility] [address] [facility] [address] Laboratory Report Ordering Provider Test Date Status SUSAN DUONG 05/26/2023 18:14:00 Kriss l Observation Date Value Abnormality Reference (Units ) Status Bacteria identified in Specimen by Culture 05/26/2023 18:14:00 [id number]^ENTEROB ACTER CLOACAE COMPLEX Abnormal Final >100,000 colonies/mL Enterob acter cloacae complex Performing Location [facility] [address] [place] [address] Ordering Provider Test Date Status SUSAN DUONG 05/26/2023 18:14:00 Kriss l Observation Date Value Abnormality Reference (Units ) Status Cefepime susceptibility 05/26/2023 18:14:00 <=1 Susceptible Final cefOXitin [Susceptibility] 05/26/2023 18:14:00 Resistant Final Ceftriaxone suceptibility 05/26/2023 18:14:00 <=1 Susceptible Final Ciprofloxacin 05/26/2023 18:14:00 <=0.25 Susceptible Final Due to serious side effects, the FDA has advised against using Ciprofloxacin to treat uncomplicated UTIs and respiratory tract infections unless there are no alternative treatment options. Gentamicin susceptibility 05/26/2023 18:14:00 <=1 Susc eptible Final Nitrofurantoin susceptibility 05/26/2023 18:14:00 32 Susceptible Final Piperacillin + Tazobactamsusceptibility 05/26/2023 18:14:00 <=4 Susceptible Final TMP-SMZ susceptibility 05/26/2023 18:14:00 <=20 Suscept ible Final Test: Culture, Urine, Quanti tative
Specimen Source: Urine, Clean Catch
Specimen Type: Urine
Specimen Date: 05/26/2023 6:14 PM
Result Date: 05/29/2023 3:14 PM
Result Status: Final result
Abnormal: Yes
Resulting Lab: [facility]
[address]
[place] [address]

CULTURE

>100,000 colonies/mL Enterobacter cloacae complex (Abnormal)

SUSCEPTIBILITY

Enterobacter cloacae
complex
METHOD MICROBROTH DILUTIONS

CEFEPIME <=1 Susceptible
CEFOXITIN -- Resistant
CEFTRIAXONE <=1 Susceptible
CIPROFLOXACIN <=0.25 Susceptible [1]
GENTAMICIN <=1 Susceptible
NITROFURANTOIN 32 Susceptible
PIPERACILLIN TAZOBACTAM <=4 Susceptible
TRIMETH/SULFAMETHOXAZOLE <=20 Susceptible

[1] Due to serious side effects, the FDA has advised against using
Ciprofloxacin to treat uncomplicated UTIs and respiratory tract infections
unless there are no alternative treatment options.

null Performing Location [facility] [place] [address] [facility] [address]
--- OUTSIDE RECORDS SUMMARY | 2023-11-23 00:55 | External Medical Summary | Summary of Care ---
Author Name Unknown Organization [facility] Address [address] [place] [address] Phone [phone] Care Team Providers Care Android Ui Developer Name Role Phone Awais Major MD Primary Care Provide r Reason for Visit * Reason Comments Acute Encounter Details Date Type Department Care Team (Late st Contact Info) Description 05/26/2023 5:40 PM EST Office Visit Family Medicine [address] [phone] Awais Major MD [address] [place] [address] [place] [id number] Acute cystitis with hematuria*; Dysuria; History of kidney stones; Anxiety; Paranoid disorder (HCC) Allergies Active Allergy Reactions Criticality Noted Date Comments Neomycin-Bacitracin Zn-Polymyx Rash 03/25 documented as of this encounter (statuses as of 05/26/2023) Medications Medication Sig Dispensed Refills Start Date [...] as of this encounter (statuses as of 05/26/2023) Active Problems Problem Noted Date Diagnosed Date Gastroesophageal reflux disease without esophagi tis 04/22/2022 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 Paranoid disorder 02/10/2021 Anxiety 02/10/2021 ADHD (attention deficit hype ractivity disorder), combined type 02/10/2021 Lipoma 02/10/2021 documented as of this encounter (statuses as of 05/26/2023) Immunizations Name Administration Dates Next Due Covid-19 [...] daily Patient Active Problem List Diagnosis Code Amgnolia's thyroiditis E06.3 Paranoid disorder (HCC) F22 Anxiety [...] disorder, not elsewhere classified Depressive Disorder Other Mganolia's thyroiditis 02/10/2021 Hypothyroidism Lipoma of back 02/10/2021 [...] used to see psych Awais Major MD [facility] medicine[address] [address] documented in this encounter Nursing Notes * [...] 8:00 AM EST Office Visit Family Medicine [address] [phone] Sonia Sheikh PA-C [address] [place] [address] [place] [id number] Pending Results Name Type Priority Associated Diagnoses Date /Time URINALYSIS, POINT OF CARE (ENTER/EDIT) Point of Care Testing Routine Dysuria 05/26/2023 Scheduled Orders Name Type Priority Associated Diagnoses Orde r Schedule CULTURE, URINE, QUANTITATIVE Lab Routine Dysuria Ordered: 05/26/2023 URINALYSIS WITH MICROSCOPIC EXAM Lab Routine Dysuria Ordered: 05/26/2023 Health Maintenance Due Date Last Done Comments [...] disorder documented in this encounter Care Teams Android Ui Developer Relationship Specialty Start Date End Date Awais Mjaor MD [address] [place] [address] [place] [id number] PCP - General Family Medicine 02/10/21 documented as of this encounter"
[2023-11-23 07:00] LABS: Basophils # (auto) 0.04 K/uL (0.00-0.20); Eosinophils # (auto) 0.13 K/uL (0.00-0.50); Eosinophils % (auto) 3.2 %; Hematocrit (blood only) 39.8 % (42.0-52.0); Immature Granulocytes # (auto) 0.03 K/uL (0.01-0.20); Immature Granulocytes % (auto) 0.7 %; Lymphocytes # (auto) 1.91 K/uL (1.20-3.40); Lymphocytes % (auto) 46.9 %; Mean Corpuscular Hgb Conc 32.7 g/dL (32.0-36.0); Mean Corpuscular Volume 85.8 fL (80.0-100.0); Mean Platelet Volume 9.7 fL (9.4-12.4); Monocytes # (auto) 0.54 K/uL (0.11-0.59); Monocytes % (auto) 13.3 %; Neutrophils # (auto) 1.42 K/uL (1.40-6.50); Neutrophils % (auto) 34.9 %; Platelet Count 263 K/uL (130-400); RDW Coefficient of Variation 13.6 % (11.5-14.5); RDW Standard Deviation 42.3 fL (36.4-46.3); Red Blood Count 4.64 M/uL (4.70-6.10); White Blood Count 4.07 K/ul (4.8-10.8)
[2023-11-23 07:17] LABS: BUN Creatinine Ratio 21.2 (10-20); Chol HDL Ratio 3.2 (0-5); Creatinine Clr Calc Pharmacy 96.5 ml/min; Est GFR (African American) 100.7 ml/min; Est GFR (Non-African American) 86.9 ml/min; Potassium 4.2 mmol/L (3.5-5.1)
[2023-11-23 07:31] LABS: Thyroid Stimulating Hormone 4.896 uIu/ml (0.300-4.500)
[2023-11-23 07:48] LABS: Estimated Average Glucose 108 mg/dl; Hemoglobin A1C 5.4 % (4.5-5.6)
[2023-11-23 08:06] LABS: T4 Free Thyroxine 0.91 ng/dl (0.61-1.60)
--- NOTE | 2023-11-23 08:43 | Neurology Consultation ---
Date of Consultation November 23, 2023 Assessment & Plan (1) Stroke-like symptoms: 43M with a PMH of anxiety and smokeless tobacco use who presented with headache and left sided numbness (similar presentation in 05/01). His exam is normal and MRI was negative for stroke. I have low suspicion that these events are vascular in nature due to the lack of any stroke evidence x2 on MRI brain. I do wonder about migraine with aura as he does have a family history of migraine. Another possibility is his anxiety. Plan -- no further inpatient work up -- outpatient neurology follow up -- continue ASA for now Telehealth Consultation Telehealth Information Telehealth Information: I performed this visit using a real-time telehealth connection between my location and the patients location ([facility]). After connecting through interactive tele-video, patient was identified by name and date of and/or wristband check.Patient (or authorized healthcare business services representative) was informed that this was a telemedicine visit and it was being conducted confidentially over secure lines. My office door was closed and no one else was present in the room with me.Patient (or authorized healthcare business services representative) provided consent to proceed with the visit, expressed an understanding of privacy and security of the telemedicine visit, and gave permi ssion to have a hospital business services representative in the room in order to assist with the visit and to conduct portions of the visit, as needed. I informed the patient (or authorized healthcare business services representative) that I reviewed their record and presented the opportunity for them to ask any questions regarding the visit today. The patient agreed to participate. History of Present Illness Reason for Consultation: stroke like symptoms Attending Physician: Jamie Pichardo DO History of Present Illness Sb Trinidad is a 43M with a PMH of anxiety, smokeless tobacco who presented to the hospital yesterday after he had an acute right temporal headache which was followed by numbness/tingling on the left side of his body. He presented as a stroke alert and was very anxious. Symptoms improved with treatment of his anxiety. He had a similar presentation in 05/01 and with an acute onset right sided headache and left sided numbness. Work up was negative and he was diagnosed with a TIA. He reports the headache was pounding over the right caodaism and 10/10. He gets occasional headaches but his mom has migraines. He denies illegal drug use and has no family history of clotting disorders. He denies recent fevers, chills, chest pain, SOB and feels completely back to baseline at this time. Allergies Allergy/AdvReac Type Severity Reaction Status Date / Time bacitracin Allergy Intermediate Rash Verified 11/22/23 15:34 [From Neosporin ([id number])] neomycin Allergy Intermediate Rash Verified 11/22/23 15:34 [From Neosporin ([id number])] polymyxin B Allergy Intermediate Rash Verified 11/22/23 15:34 [From Neosporin ([id number])] Home Medications Medication Instructions Recorded Confirmed Type pantoprazole 40 mg tablet,delayed 40 mg PO DAILY 05/03/23 11/22/23 History release aspirin 81 mg tablet,delayed 81 mg PO QAM #30 tabs 05/05/23 11/22/23 Rx release loratadine 10 mg tablet (Wal-itin) 10 mg PO QAM #7 tabs 05/05/23 11/22/23 Rx acetaminophen 500 mg tablet 500 mg PO Q6H PRN Pain/Fever 11/22/23 11/22/23 History trazodone 50 mg tablet 50 mg PO HS PRN Sleep 11/22/23 11/22/23 History Patient History Medical History (Updated 11/22/23 @ 18:40 by Dominga Suh PA-C) Paranoid disorder ADHD Subclinical hypothyroidism Geovanni's thyroiditis Abnormal echocardiogram TIA (transient ischemic attack) Surgical History (Updated 11/22/23 @ 18:35 by Dominga Suh PA-C) History of repaired hypospadias Social History Smoking Status: Never smoker Tobacco Type: Smokeless Tobacco (Dip or Chew) Do You Dip or Chew Tobacco: Yes; Hx Alcohol Use: Yes Alcohol type: beer Hx Substance Use: No Preferred Language: Kiswahili Communication Ability: Effective Diversified Crops Supervisor Required: No Beliefs That Will Affect Care: None Current Living Situation: Spouse Current Living Situation Comment: one daughter at times in college Other Information That Helps Us Care for You: No Feels Safe at Home: Yes Safety Concerns: Feels Safe At This Time Assistive Devices: None Physical Exam Mental Status:alert, oriented to time, place, person, normal recent memory, normal remote memory, normal attention span, normal concentration, normal language, and normal fund of knowledge Cranial Nerves: CN 2 - no visual defect on confrontation and pupils round, equal, reactive to l ight CN 3, 4, 6 - extra-ocular movements intact and no nystagmus CN 5 - facial sensation intact CN 7 - no facial asymmetry CN 8 - intact hearing CN 9, 10 - palate symmetric, normal gag CN 11 - good shoulder shrug CN 12 - tongue midline MOTOR: Strength was at least antigravity throughout, Pronator drift was absent, and There were no abnormal movements SENSATION: intact GAIT: stable COORDINATION: no ataxia with finger to nose testing and heel to mckeon testing REFLEXES: cannot assess over telemedicine Results & Data Vital Signs (Past 12 Hours) Vital Signs Temp Pulse Resp BP Pulse Ox Pulse Ox O2 Del Method 11/23/23 07:55 36.9 C 80 18 133/83 98 Room Air 11/23/23 03:33 36.7 C 71 18 135/74 98 Room Air 11/22/23 23:55 Room Air 11/22/23 23:26 36.7 C 75 18 147/90 H 98 Room Air 11/22/23 22:52 74 20 129/76 97 Room Air 11/22/23 22:52 97 O2 Del Method 11/23/23 07:55 11/23/23 03:33 11/22/23 23:55 11/22/23 23:26 11/22/23 22:52 11/22/23 22:52 Room Air Laboratory Results Abnormal Lab Results 11/22/23 11/22/23 11/22/23 14:04 14:12 14:18 WBC 5.26 RBC 5.15 Hgb 14.5 Hct 44.5 MCV 86.4 MCH 28.2 MCHC 32.6 RDW Std Deviation 43.2 RDW Coeff of Natasha 13.6 Plt Count 297 MPV 9.9 Immature Gran % (Auto) 0.4 Neut % (Auto) 56.0 Lymph % (Auto) 27.8 [place] % (Auto) 13.5 Eos % (Auto) 1.3 Baso % (Auto) 1.0 Neut # (Auto) 2.95 Lymph # (Auto) 1.46 [place] # (Auto) 0.71 H Eos # (Auto) 0.07 Baso # (Auto) 0.05 Immature Gran # (Auto) 0.02 PT 10.0 INR 0.9 APTT 27 PTT Ratio 1.0 Sodium 139 Potassium 4.0 Chloride 102 Carbon Dioxide 29 Anion Gap 8 BUN 18 Creatinine 1.10 Est Cr Clr Drug Dosing 93.9 Est GFR ( Amer) 94.1 Est GFR (Non-Af Amer) 81.2 BUN/Creatinine Ratio 16.4 Glucose 122 H POC Glucose 93 Estimat Average Glucose Hemoglobin A1c Calcium 10.1 Magnesium 2.0 Total Bilirubin 0.6 AST 25 ALT 19 Alkaline Phosphatase 80 Troponin I High Sens 3.5 Total Protein 7.9 Albumin 4.6 Globulin 3.3 Albumin/Globulin Ratio 1.4 Triglycerides Cholesterol LDL Cholesterol, Calc VLDL Cholesterol, Calc HDL Cholesterol Cholesterol/HDL Ratio TSH Free T4 Urine Color Urine Appearance Urine pH Ur Specific [place] Urine Protein Urine Glucose (UA) Urine Ketones Urine Blood Urine Nitrite Urine Bilirubin Urine Urobilinogen Ur Leukocyte Esterase Urine WBC (Auto) Urine RBC (Auto) U Hyaline Cast (Auto) U Epithel Cells (Auto) Urine Bacteria (Auto) Urine Opiates Screen Ur Methadone, Qual Urine Fentanyl Screen Urine Barbiturates Ur Phencyclidine (PCP) U Amphetamin/Meth Scrn MDMA (Ecstasy) Screen U Benzodiazepines Scrn Ur Cocaine Metabolite U Marijuana (THC) Screen Ethyl Alcohol mg/dL < 10.0 Adenovirus (PCR) B. pertussis DNA (PCR) B.parapertussis DNA PCR C. pneumoniae DNA (PCR) Coronavirus OC43 (PCR) Coronavirus HKU1 (PCR) Coronavirus 229E (PCR) SARS-CoV-2 (PCR) Coronavirus NL63 (PCR) Human Metapneumovir PCR Influenza Type A (PCR) Influenza Type B (PCR) M. pneumoniae (PCR) Parainfluenza 1 (PCR) Parainfluenza 2 (PCR) Parainfluenza 3 (PCR) Parainfluenza 4 (PCR) RSV (PCR) Entero/Rhino (PCR) 11/22/23 11/22/23 11/23/23 14:35 17:34 06:05 WBC 4.07 L RBC 4.64 L Hgb 13.0 L Hct 39.8 L MCV 85.8 MCH 28.0 MCHC 32.7 RDW Std Deviation 42.3 RDW Coeff of Natasha 13.6 Plt Count 263 MPV 9.7 Immature Gran % (Auto) 0.7 Neut % (Auto) 34.9 Lymph % (Auto) 46.9 [place] % (Auto) 13.3 Eos % (Auto) 3.2 Baso % (Auto) 1.0 Neut # (Auto) 1.42 Lymph # (Auto) 1.91 [place] # (Auto) 0.54 Eos # (Auto) 0.13 Baso # (Auto) 0.04 Immature Gran # (Auto) 0.03 PT INR APTT PTT Ratio Sodium 140 Potassium 4.2 Chloride 106 Carbon Dioxide 27 Anion Gap 7 BUN 22 Creatinine 1.04 Est Cr Clr Drug Dosing 96.5 Est GFR ( Amer) 100.7 Est GFR (Non-Af Amer) 86.9 BUN/Creatinine Ratio 21.2 H Glucose 102 H POC Glucose Estimat Average Glucose 108 Hemoglobin A1c 5.4 Calcium 9.0 Magnesium Total Bilirubin AST ALT Alkaline Phosphatase Troponin I High Sens Total Protein Albumin Globulin Albumin/Globulin Ratio Triglycerides 115 Cholesterol 177 LDL Cholesterol, Calc 99 VLDL Cholesterol, Calc 23 HDL Cholesterol 55 Cholesterol/HDL Ratio 3.2 TSH 4.896 H Free T4 0.91 Urine Color Yellow Urine Appearance Clear Urine pH 5.5 Ur Specific [place] > 1.045 H Urine Protein Trace H Urine Glucose (UA) Negative Urine Ketones Negative Urine Blood Negative Urine Nitrite Negative Urine Bilirubin Negative Urine Urobilinogen Negative Ur Leukocyte Esterase 2+ H Urine WBC (Auto) >50 H Urine RBC (Auto) 0-2 U Hyaline Cast (Auto) 0-2 U Epithel Cells (Auto) 3-5 H Urine Bacteria (Auto) 2+ H Urine Opiates Screen Neg Ur Methadone, Qual Neg Urine Fentanyl Screen Neg Urine Barbiturates Neg Ur Phencyclidine (PCP) Neg U Amphetamin/Meth Scrn Neg MDMA (Ecstasy) Screen Pos H U Benzodiazepines Scrn Neg Ur Cocaine Metabolite Neg U Marijuana (THC) Screen Neg Ethyl Alcohol mg/dL Adenovirus (PCR) Not Detected B. pertussis DNA (PCR) Not Detected B.parapertussis DNA PCR Not Detected C. pneumoniae DNA (PCR) Not Detected Coronavirus OC43 (PCR) Not Detected Coronavirus HKU1 (PCR) Not Detected Coronavirus 229E (PCR) Not Detected SARS-CoV-2 (PCR) Not Detected Coronavirus NL63 (PCR) Not Detected Human Metapneumovir PCR Not Detected Influenza Type A (PCR) Not Detected Influenza Type B (PCR) Not Detected M. pneumoniae (PCR) Not Detected Parainfluenza 1 (PCR) Not Detected Parainfluenza 2 (PCR) Not Detected Parainfluenza 3 (PCR) DETECTED A Parainfluenza 4 (PCR) Not Detected RSV (PCR) Not Detected Entero/Rhino (PCR) Not Detected Diagnostic Findings Chest X-Ray 11/22/23 13:47 XR chest 1V portable CLINICAL HISTORY: neuro deficit, acute stroke suspected TECHNIQUE: Single frontal radiograph of the chest was obtained. Comparison: None available at the time of this dictation. FINDINGS: No lines and tubes are seen. The cardiomediastinal silhouette is normal. The lungs are clear. No evidence of pleural effusion or pneumothorax. IMPRESSION: No acute chest disease. ACT 112: Negative or not required by law. Electronically signed by: David Coelho M.D. 11/22/2023 3:[address] 11/22/23 13:47 CT angio head w con, CT head/brain wo con CLINICAL HISTORY: neuro deficit, acute stroke suspected TECHNIQUE: Contiguous axial CT images of the head were acquired from the base of the skull to the vertex without intravenous contrast administration. CT angiography of the head was performed following intravenous administration of iodinated contrast. Coronal and sagittal MIPS were obtained from the axial data set and were submitted for review. Automated dose lowering techniques and/or adjustment according to patient size were utilized for this examination. All measurements were calculated based on NASCET criteria. Comparison: None available at the time of this dictation. FINDINGS: CT head: There is no acute intracranial hemorrhage or evidence of acute territorial infarction. No shift of the midline structures, mass effect, or extra-axial abnormalities are shown. CTA Head: The anterior and posterior cerebral circulations are patent. No hemodynamically significant stenosis, aneurysm, dissection, or arteriovenous malformation is shown. IMPRESSION: 1. No acute intracranial hemorrhage, evidence of acute territorial infarction, or other acute intracranial disease process. 2. No occlusion, hemodynamically significant stenosis, aneurysm, dissection, or arteriovenous malformation in the major intracranial arteries. Assessment of stenosis of the internal carotid arteries is based on NASCET criteria. ACT 112: Negative or not required by law. Electronically signed by: David Coelho M.D. 11/22/2023 2:16 PM Head CTA 11/22/23 13:47 CT angio head w con, CT head/brain wo con CLINICAL HISTORY: neuro deficit, acute stroke suspected TECHNIQUE: Contiguous axial CT images of the head were acquired from the base of the skull to the vertex without intravenous contrast administration. CT angiography of the head was performed following intravenous administration of iodinated contrast. Coronal and sagittal MIPS were obtained from the axial data set and were submitted for review. Automated dose lowering techniques and/or adjustment according to patient size were utilized for this examination. All measurements were calculated based on NASCET criteria. Comparison: None available at the time of this dictation. FINDINGS: CT head: There is no acute intracranial hemorrhage or evidence of acute territorial infarction. No shift of the midline structures, mass effect, or extra-axial abnormalities are shown. CTA Head: The anterior and posterior cerebral circulations are patent. No hemodynamically significant stenosis, aneurysm, dissection, or arteriovenous malformation is shown. IMPRESSION: 1. No acute intracranial hemorrhage, evidence of acute territorial infarction, or other acute intracranial disease process. 2. No occlusion, hemodynamically significant stenosis, aneurysm, dissection, or arteriovenous malformation in the major intracranial arteries. Assessment of stenosis of the internal carotid arteries is based on NASCET criteria. ACT 112: Negative or not required by law. Electronically signed by: David Coelho M.D. 11/22/2023 2:16 PM Neck CTA 11/22/23 13:47 CT ANGIOGRAM OF THE NECK CLINICAL HISTORY: Neurological deficit. Stroke like symptoms. COMPARISON STUDY: CT angiogram of the neck dated 05/03/2023. TECHNIQUE: Following the IV administration of 119 of Optiray 320, CT angiogram of the neck was performed from the aortic arch to the skull base. Images are reviewed in the axial, sagittal, and coronal planes. 3-D MIPS images are created and assessed. IV contrast was administered without complication. All measurements were calculated based on NASCET criteria. A dose lowering technique was utilized adhering to the principles of ALARA. CT DOSE: 1368.74 mGy.cm FINDINGS: Thoracic aorta: Visualized portions of the thoracic aorta are normal in caliber. The aortic arch demonstrates standard 3-vessel anatomy. Right carotid arterial system: The right common carotid artery is widely patent, as are the right internal and external carotid arteries. Left carotid arterial system: The left common carotid artery is widely patent, as are the left internal and external carotid arteries. Vertebral arteries: The vertebral arteries are widely patent bilaterally and codominant. Subclavian arteries: Widely patent bilaterally. Jugular veins: Patent bilaterally. Brain parenchyma: The visualized brain parenchyma the skull base is within normal limits. Lung apices: Partially visualized upper lobe lung parenchyma appears clear. Soft tissues: The visualized pharyngeal soft tissues are normal in appearance noting angiographic phase technique. The oropharyngeal airway appears widely patent. The salivary and thyroid glands are normal in appearance. No cervical lymphadenopathy is seen. Skeletal structures: The visualized calvarium at the skull base appears intact. The imaged cervical spine is maintained noting mild spondylosis. Sinuses and mastoids: There is mild mucosal thickening with an air-fluid level seen in the right maxillary antrum. Mild mucosal thickening is also noted in the left maxillary sinus. The mastoid air cells are well pneumatized. IMPRESSION: Unremarkable CT angiogram of the neck. ACT 112: Negative or not required by law. Electronically signed by: Bro Chance M.D. 11/22/2023 2:13 PM Brain MRI 11/22/23 17:22 Exam(s): MRI HEAD W/WO Contrast IV Amt: 7.5cc gadavist EXAM: MR Head Without and With Intravenous Contrast CLINICAL HISTORY: Reason for exam: stroke-like symptoms vs. seizure. TECHNIQUE: Magnetic resonance images of the head/brain without and with intravenous contrast in multiple planes. CONTRAST: Patient received 7.5cc Gadavist of IV contrast COMPARISON: CT head 11-22-2023, CTA head 11-22-2023, MRI brain 05/03/2023. FINDINGS: Brain: Age-appropriate central and peripheral atrophy. No acute stroke. No focal parenchymal abnormality. No acute hemorrhage. No abnormal extra-axial fluid collection. No mass lesion. No abnormal parenchymal or leptomeningeal enhancement postcontrast. Ventricles: No midline shift. No ventriculomegaly. Incidental cavum of septum pellucidum. Bones/joints: Unremarkable. No acute fracture. Sinuses: Diffuse paranasal sinus mucosal thickening. Small right maxillary sinus air-fluid level. Mastoid air cells: Unremarkable as visualized. No mastoid effusion. Orbits: Unremarkable as visualized. IMPRESSION: No acute abnormality. Electronically signed by: Alexander Robles M.D. 11/22/23 22:58 PM Orbit X-Ray 11/22/23 18:17 BONY ORBITS 3 VIEWS CLINICAL HISTORY: MRI clearance. FINDINGS: 3 views of the bony orbits are compared to study dated 05/03/2023. There is no radiodense/metallic foreign body seen in the region of the bony orbits. The bony orbits are intact as imaged. The visualized paranasal sinuses and the mastoid air cells appear clear. The imaged calvarium appears intact. IMPRESSION: There is no radiodense/metallic foreign body seen in the region of the bony orbits. ACT 112: Negative or not required by law. Electronically signed by: Bro Chance M.D. 11/22/2023 6:57 PM
--- NOTE | 2023-11-23 09:31 | Discharge Summary ---
Discharge Summary Date of Service November 23, 2023 Principal Dx & Hospital Course #1 = Principal Diagnosis (1) Hemiplegic migraine: (2) Generalized anxiety disorder: (3) Parainfluenza virus infection: (4) GERD (gastroesophageal reflux disease): Chronic, stable Continue PPI (5) Smokeless tobacco use: Pt agreeable to trying a nicotine patch while admitted Recommend cessation (6) ADHD: (7) Subclinical hypothyroidism: Plan Patient was observed in the hospital. There is no significant arrhythmias noted on telemetry monitoring. Patient underwent MRI of the brain which was negative for acute infarct. Was evaluated by neurology and felt that this was not a ischemic event. Acute stroke has been ruled out. His symptoms much more consistent with complex hemiplegic migraine versus acute anxiety and panic attack. On the day of discharge his symptoms are completely resolved. He also stated that this symptoms started initially with almost like a thunderclap type of migraine headache and then started to get the neurological symptoms. This history is very consistent with hemiplegic migraine. We will give a trial of Zomig for migraine when he starts to get his early symptoms. We also discussed managing his anxiety. Patient reports has been on numerous antidepressants before. Also reports trying numerous benzodiazepines. Discussed buspirone. Will give this a trial and he will follow-up with his PCP. Patient denied any use of ecstasy. States he is never used ecstasy. He did report he took Strattera about 3 days ago. This may be the cause of his po sitive urine drug screen. His TSH was very minimally elevated. There he is a history of Geovanni thyroiditis. Recommend rechecking TSH and 4 to 6 weeks. If still remains slightly elevated could consider low-dose Synthroid replacement. This may help manage his anxiety as well. Otherwise patient will be discharged home with outpatient follow-up with his providers. Notes For Next Care Provider Consider checking TSH in 4 to 6 weeks, still elevated consider supplementation Consider outpatient behavioral health counseling and ongoing medical management of anxiety Medication Changes From Visit Igor started to manage anxiety Zomig added for migraine treatment. Admission HPI Per Admitting Provider This is a 43 y/o male with history of TIA in Apr 2023, GERD, anxiety, panic disorder, ADHD, and seasonal allergies who presented to the ED today as a stroke alert. 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 This was followed by the onset of left facial and left neck numbness. He reports this felt similar to prior TIA so he told his co-workers to call EMS. When EMS arrived, he was able to walk out to the ambulance, but during transport, he reportedly developed decreased responsiveness, aphasia, and inability to move his left side. On evaluation in the ED, he seemed to start to improve so thrombolytics were held. He was given a dose of Ativan in the ED, after which he had significant improvement of the neurologic symptoms although the headache persists. When his initially arrived in the ED, pt was not talking and seemed slow to respond but this has improved after the Ativan. Patient reports increased life stressors and ongoing issues with anxiety that has been somewhat difficult to get until control. He reports that he is not taking anything for this at present but is interested in talking to someone about it. He notes a recent illness with URI symptoms for the last few days. S ubjective fever, cough productive of yellow mucus. had similar URI symptoms first. Admission Exam Per Admitting Provider See H&P Discharge Exam Constitutional: Alert HEENT: Mucous membranes moist. Lungs: Clear to auscultation, decreased, no wheezes rales or rhonchi CV: S1-S2, regular Abdomen: Soft, nontender, nondistended Extremities: No significant edema Neuro: No focal deficits, NIH stroke score equals 0 Psych: Cooperative, normal mood Updated Medication List Medication Instructions Recorded Confirmed Type pantoprazole 40 mg tablet,delayed 40 mg PO DAILY 05/03/23 11/22/23 History release aspirin 81 mg tablet,delayed 81 mg PO QAM #30 tabs 05/05/23 11/22/23 Rx release loratadine 10 mg tablet (Wal-itin) 10 mg PO QAM #7 tabs 05/05/23 11/22/23 Rx acetaminophen 500 mg tablet 500 mg PO Q6H PRN Pain/Fever 11/22/23 11/22/23 History trazodone 50 mg tablet 50 mg PO HS PRN Sleep 11/22/23 11/22/23 History buspirone 7.5 mg tablet 7.5 mg PO TID #90 tabs 11/23/23 Rx zolmitriptan 5 mg tablet (Zomig) See Rx Instructions PO .COMPLEX 11/23/23 Rx #10 tabs Hospital Stay Data Consultations 11/22/23 15:26 ED Decision to Admit Stat 11/22/23 15:45 ED Decision to Admit Stat 11/22/23 20:10 Consult Neurology Routine Consult Psychiatry Routine Diagnostic Imagining Performed 11/22/23 13:47 CT angio head w con Stat CT angio neck with con Stat CT head/brain wo con Stat 11/22/23 17:22 MRI Brain [MR brain wo/w con] Stat Reviewed imaging, laboratory and diagnostic studies. Pertinent findings as below. MRI negative for acute ischemic event Respiratory viral panel positive for parainfluenza Urine drug screen preliminary positive for MDMA, suspect this is due to recent Strattera use TSH 4.89 Pending Results Patient Have Any Pending Studies at Discharge: No Discharge Instructions Given to Patient (Per Discharging Provider) As soon as you sense a migraine may be coming on take medication to abort the migraine Recommend you follow-up with behavioral health to further address her ADHD and anxiety Total Time Total Time Spent Total Time Spent (In Minutes): 36
[2023-11-23] MEDS: ENOXAPARIN INJ 40 MG/0.4 ML SYR SQ SCH (09:33)
[2023-11-23] MEDS: ASPIRIN 81 MG ECTAB PO SCH (09:33)
[2023-11-23] MEDS: LORATADINE 10 MG TAB PO SCH (09:33)
[2023-11-23] MEDS: PANTOprazole 40 MG TAB PO SCH (09:33)
[2023-11-23] MEDS: CLOPIDOGREL BISULFATE 75 MG TAB PO SCH (09:33)
[2023-11-23] MEDS: busPIRone 7.5 MG TAB PO ONE (09:55)
--- NOTE | 2023-11-23 11:02 | Electrocardiogram Report ---
Test Reason : Blood Pressure : / mmHG Vent. Rate : 088 BPM Atrial Rate : 088 BPM P-R Int : 168 ms QRS Dur : 092 ms QT Int : 340 ms P-R-T Axes : 070 072 010 degrees QTc Int : 411 ms Normal sinus rhythm Possible Left atrial enlargement Septal infarct , age undetermined T wave abnormality, consider inferior ischemia Abnormal ECG When compared with ECG of 03-MAY-2023 16:37, No significant change was found Confirmed by Fish Roberson ([id number]) on 11/23/2023 11:02:08 AM Referred By: REFERRED SELF Confirmed By:Fish Roberson
--- NOTE | 2023-11-24 06:01 | Electroencephalogram ---
EEG Procedure Note Date of Service November 23, 2023 Start / End Times Start Time: 09:30 End Time: 09:[address] Osvaldo Brady History A 43 year old male with possible stroke. EEG performed for evaluation of epileptiform activity. Home Medication List Medication Instructions Recorded Confirmed Type pantoprazole 40 mg tablet,delayed 40 mg PO DAILY 05/03/23 11/22/23 History release aspirin 81 mg tablet,delayed 81 mg PO QAM #30 tabs 05/05/23 11/22/23 Rx release loratadine 10 mg tablet (Wal-itin) 10 mg PO QAM #7 tabs 05/05/23 11/22/23 Rx trazodone 50 mg tablet 50 mg PO HS PRN Sleep 11/22/23 11/22/23 History acetaminophen 500 mg tablet 1,000 mg (2 x 500 mg) PO Q6H PRN 11/23/23 11/22/23 Rx Pain/Fever #0 tabs buspirone 7.5 mg tablet 7.5 mg PO TID #90 tabs 11/23/23 Rx zolmitriptan 5 mg tablet (Zomig) See Rx Instructions PO .COMPLEX 11/23/23 Rx #10 tabs Inpatient Medication List Discontinued Medications Aspirin (Aspirin 81 Mg Ectab) [facility] Stop: 12/23/23 08:59 Last Admin: 11/23/23 09:33 Dose: 81 mg Documented By: RAMANDEEP Buspirone HCl (Buspirone 7.5 Mg Tab) 7.5 mg PO ONCE ONE Stop: 11/23/23 09:43 Last Admin: 11/23/23 09:55 Dose: 7.5 mg Documented By: RAMANDEEP Clopidogrel Bisulfate (Clopidogrel Bisulfate 75 Mg Tab) 75 mg PO QAM [facility] Stop: 12/23/23 08:59 Last Admin: 11/23/23 09:33 Dose: 75 mg Documented By: RAMANDEEP Clopidogrel Bisulfate (Clopidogrel Bisulfate 75 Mg Tab) 75 mg PO ONE STA Stop: 11/22/23 17:30 Last Admin: 11/22/23 17:56 Dose: 75 mg Documented By: EDUARDO Enoxaparin Sodium (Enoxaparin Inj 40 Mg/0.4 Ml Syr) 40 [facility] Stop: 12/23/23 08:59 Last Admin: 11/23/23 09:33 Dose: Not Given Documented By: RAMANDEEP Gadobutrol (Gadobutrol 65ml Vial) 7.5 ml IV ONCE ONE Stop: 11/22/23 19:56 Last Admin: 11/22/23 19:56 Dose: 7.5 ml Documented By: DOMINIC Tenecteplase 19 mg/ Syringe 3.8 mls @ 45.6 mls/min IV NOW ONE; Protocol Stop: 11/22/23 14:17 Last Admin: 11/22/23 15:59 Dose: Not Given Documented By: EDUARDO Valproic Acid 500 mg/ Dextrose 55 mls @ 55 mls/hr IV ONE STA Stop: 11/22/23 16:14 Last Infusion: 11/22/23 16:40 Dose: Infused Documented By: Admin: 11/22/23 15:37 Dose: 55 mls/hr Documented By: MARIA ISABEL Valproic Acid 1,050 mg/ (Dextrose) 60.5 mls @ 55 mls/hr IV ONE ONE Stop: 11/22/23 16:26 Last Infusion: 11/22/23 17:15 Dose: Infused Documented By: Admin: 11/22/23 16:09 Dose: 55 mls/hr Documented By: EDUARDO Ioversol (Optiray 320 125ml) 119 ml IV ONCE ONE Stop: 11/22/23 14:03 Last Admin: 11/22/23 14:02 Dose: 119 ml Documented By: ALEXIA Ketorolac Tromethamine (Ketorolac Tromethamine 15 Mg/Ml Vial) 15 mg IV Q6H PRN PRN Reason: Pain Stop: 11/27/23 17:21 Last Admin: 11/23/23 00:09 Dose: 15 mg Documented By: KIMBERLEE Ketorolac Tromethamine (Ketorolac Tromethamine 15 Mg/Ml Vial) 10 mg IV NOW STA Stop: 11/22/23 17:28 Last Admin: 11/22/23 17:56 Dose: 10 mg Documented By: EDUARDO Loratadine (Loratadine 10 Mg Tab) 10 mg PO QAM GUILLERMO Stop: 12/23/23 08:59 Last Admin: 11/23/23 09:33 Dose: 10 mg Documented By: RAMANDEEP Lorazepam (Lorazepam 1 Mg/1 Ml Syr Ed Inj Use) Confirm Administered Dose 2 mg .ROUTE .STK-MED ONE Stop: 11/22/23 14:32 Last Admin: 11/22/23 15:58 Dose: Not Given Documented By: EDUARDO Lorazepam (Lorazepam 1 Mg/1 Ml Syr Ed Inj Use) 2 mg IV ONE STA Stop: 11/22/23 14:32 Last Admin: 11/22/23 14:43 Dose: 2 mg Documented By: JOE Jeffersonaneous (Stat Iv/Im) 1 each N/A NOW STA Stop: 11/22/23 14:07 Last Admin: 11/22/23 15:59 Dose: Not Given Documented By: EDUARDO Jeffersonaneous (Remove Nicoderm Patch) 1 each N/A DAILY@0859 GUILLERMO Stop: 12/23/23 08:58 Last Admin: 11/23/23 09:33 Dose: 1 each Documented By: RAMANDEEP Nicotine (Nicotine 21 Mg/24 Hr Tdsy) 1 patch TD QAM GUILLERMO Stop: 12/22/23 20:09 Last Admin: 11/23/23 09:34 Dose: Not Given Documented By: Admin: 11/22/23 20:20 Dose: 1 patch Documented By: EDUARDO Pantoprazole Sodium (Pantoprazole 40 Mg Tab) 40 mg PO DAILY GUILLERMO Stop: 12/23/23 08:59 Last Admin: 11/23/23 09:33 Dose: 40 mg Documented By: RAMANDEEP Sodium Chloride (Sodium Chloride 0.9% 10ml Flush) 20 ml IV NOW STA Stop: 11/22/23 14:07 Last Admin: 11/22/23 15:58 Dose: Not Given Documented By: EDUARDO Trazodone HCl (Trazodone Hcl 50 Mg Tab) 50 mg PO HS PRN PRN Reason: Sleep Stop: 12/22/23 20:09 Last Admin: 11/23/23 00:08 Dose: 50 mg Documented By: KIMBERLEE Description This is a 21 electrode EEG with a single channel dedicated to limited EKG. The electrodes were placed in accordance with the International 10-20 system. REPORT: At the onset of the EEG, the patient is awake. The background activity consist of 10-11 Hz, persistent, posteriorly dominant, moderate amplitude, symmetric and rhythmic activity that is reactive to eye opening. Anteriorly, it consist of a mixture of low voltage indeterminate activity and 15-25 Hz, pe rsistent, low amplitude, symmetric and rhythmic activity. Stepwise intermittent photic stimulation (1-21 Hz) and hyperventilation (3 minutes, good effort) do not induce any abnormalities. Drowsiness is characterized by low amplitude mixed frequency activity, roving eye movements, and decreased eye blinking and muscle artifact. Interpretation IMPRESSION: This is a normal awake and drowsy routine EEG. There is no evidence of focal slowing or epileptiform activity.
[2023-11-27 02:48] LABS: MDA negative; MDEA negative; MDMA (Ecstasy) Urine, Confirm negative
== END 2023-11-23 13:44 | disposition home or self-care (01) | DRG 103 ==
LOC: ED 13:54 → SUATTDRO 17:27 → EDINP 17:27 → 2E 20:10